=== PATIENT | male | born 1965 | race Caucasian/White ===

== ENCOUNTER 2018-06-19 08:58 | Inpatient (IN) | payer OTHER ==
[2018-06-19 09:52] VITALS: BMI 18.8
--- NOTE | 2018-06-19 10:26 | HP ---
CIWA Score - CIWA Score Nausea/Vomitin-Mild Nausea/No Vomiting Muscle Tremors: 3 Anxiety: 4-Mod. Anxious/Guarded Agitation: 0-Normal Activity Paroxysmal Sweats: 1-Minimal Palms Moist Orientation: 1-Uncertain about Date Tacttile Disturbances: 0-None Auditory Disturbances: 1-Very Mild Visual Disturbances: 1-Very Mild Sensitivity Headache: 1-Very Mild CIWA-Ar Total Score: 13 Admission ROS [facility] - HPI Chief Complaint: I drink too much beer, I want to stop Allergies/Adverse Reactions: Allergies Allergy/AdvReac Type Severity Reaction Status Date / Time No Known Allergies Allergy Verified 06/19/18 10:14 History of Present Illness: 52 yo gentleman here for detox from alcohol - states was in [facility] ED due to alcohol related seizure and told to go for detox. Last time here was 2013. Patient with history of black outs. Exam Limitations: Clinical Condition - Ebola screening Have you traveled outside of the country in the last 21 days: No (N) Have you had contact with anyone from an Ebola affected area: No Have you been sick,other than usual withdrawal symptoms: No Do you have a fever: No - Review of Systems Constitutional: Loss of Appetite, Changes in sleep, Weakness, Unintentional Wgt. Loss EENT: reports: Nose Congestion, Other (right eye blind (states from )) Respiratory: reports: SOB with Exertion Cardiac: reports: No Symptoms Reported GI: reports: Poor Appetite, Abdominal cramping : reports: Frequency Musculoskeletal: reports: No Symptoms Reported Integumentary: reports: No Symptoms Reported Neuro: reports: Headache, Tremors Endocrine: reports: No Symptoms Reported Hematology: reports: No Symptoms Reported Psychiatric: reports: Judgement Intact, Anxious Other Systems: Reviewed and Negative Patient History - Patient Medical History Hx Anemia: No Hx Asthma: No Hx Chronic Obstructive Pulmonary Disease (COPD): Yes (per xray) Hx Cancer: No Hx Cardiac Disorders: No Hx Congestive Heart Failure: No Hx Hypertension: No Hx Hypercholesterolemia: No Hx Pacemaker: No HX Cerebrovascular Accident: No Hx Seizures: Yes (yesterday ) Hx Dementia: No Hx Diabetes: No Hx Gastrointestinal Disorders: No Hx Liver Disease: No Hx Genitourinary Disorders: No Hx Sexually Transmitted Disorders: No Hx Renal Disease (ESRD): No Hx Thyroid Disease: No Hx Human Immunodeficiency Virus (HIV): No Hx Hepatitis C: No Hx Depression: Yes (no meds) Hx Suicide Attempt: Yes (walked in front of a car) Hx Bipolar Disorder: No Hx Schizophrenia: No Other Medical History: right eye blind - since - Patient Surgical History Past Surgical History: Yes Hx Neurologic Surgery: No Hx Cataract Extraction: No Hx Cardiac Surgery: No Hx Lung Surgery: No Hx Breast Surgery: No Hx Breast Biopsy: No Hx Abdominal Surgery: No Hx Appendectomy: No Hx Cholecystectomy: No Hx Genitourinary Surgery: No Hx Section: No Hx Orthopedic Surgery: Yes (left ankle with ORIF due to fracture) Anesthesia Reaction: No - PPD History Previous Implant?: Yes Documented Results: Negative w/proof Date: 09/03/13 Results: 0 mm PPD to be Administered?: Yes - Reproductive History Patient is a Female of Child Bearing Age (11 -55 yrs old): No (male) - Smoking Cessation Smoking history: Current every day smoker Have you smoked in the past 12 months: Yes Aproximately how many cigarettes per day: 20 Cigars Per Day: 20 Hx Chewing Tobacco Use: No Initiated information on smoking cessation: Yes 'Breaking Loose' booklet given: 06/19/18 - Substance & Tx. History Hx Alcohol Use: Yes Hx Substance Use: Yes Substance Use Type: Alcohol, Marijuana Hx Substance Use Treatment: Yes (detox, rehab) - Substances Abused Alcohol Route: Oral Frequency: Daily Amount used: Beer - four 245 oz Age of first use: 16 Date of Last Use: 06/18/18 marijuana Route: Smoking Frequency: 1-2 times per week Amount used: 1 joint Age of first use: 14 Date of Last Use: 06/09/18 Family Disease History - Family Disease History Family Disease History: Heart Disease: Father (, alcohol), Mother ( , alcohol), Other: Father, Mother, Brother (one - living ), Sister (two living) Admission Physical Exam S - Vital Signs Vital Signs: Vital Signs - 24 hr 06/19/18 06/19/18 09:49 09:50 Temperature 97.2 F L 96.2 F L Pulse Rate 69 59 L Respiratory 17 18 Rate Blood Pressure 119/81 123/76 - Physical General Appearance: Yes: Appropriately Dressed, Disheveled, Moderate Distress, Thin, Anxious HEENTM: Yes: Hearing grossly Normal, Normocephalic, Pharynx Normal, Nasal Congestion, Rhinorrhea, Other (right eye extropia (states blind in that eye)) Respiratory: Yes: Normal Breath Sounds, No Respiratory Distress Neck: Yes: No masses,lesions,Nodules, Supple Breast: Yes: Breast Exam Deferred Cardiology: Yes: Regular Rhythm, Regular Rate Abdominal: Yes: Non Tender, Flat, Soft Genitourinary: Yes: Frequency Back: Yes: Normal Inspection, Other (mild kyphosis) Musculoskeletal: Yes: full range of Motion, Other (unsteady gait at times) Extremities: Yes: Normal Inspection, Non-Tender, Other (healed surgical scar left ankle) Neurological: Yes: Alert, Motor Strength 5/5, Normal Mood/Affect, Normal Response Integumentary: Yes: Normal Color, Dry, Warm Lymphatic: Yes: Within Normal Limits - Diagnostic (1) Alcohol dependence with uncomplicated withdrawal Current Visit: Yes Status: Chronic (2) COPD (chronic obstructive pulmonary disease) Current Visit: Yes Status: Chronic Qualifiers: COPD type: emphysema (3) Underweight Current Visit: Yes Status: Chronic (4) Nicotine dependence Current Visit: Yes Status: Chronic Qualifiers: Nicotine product type: cigarettes (5) mental retardation nos Current Visit: Yes Status: Active (6) History of seizure Current Visit: Yes Status: Chronic (7) Blind right eye Current Visit: Yes Status: Acute (8) Exotropia, right eye Current Visit: Yes Status: Chronic Cleared for Admission [facility] - Detox or Rehab [facility] Level of Care: Medically Managed Detox Regimen/Protocol: Librium [facility] Breath Alcohol Content Breath Alcohol Content: 0 Urine Drug Screen - Results Drug Screen Negative: No Urine Drug Screen Results: OPI-Opiates, OXY-Oxycodone
[2018-06-19] MEDS ORDERED: MAG HYDROX/AL HYDROX/SIMETH 30 ML UNIT-DOSE CUP PO PRN (11:00)
[2018-06-19] MEDS ORDERED: guaiFENesin/D-METHORPHAN HB 10 ML UNIT-DOSE CUPS PO PRN (11:00)
[2018-06-19] MEDS ORDERED: hydrOXYzine PAMOATE 25 MG CAPSULE (FP) PO PRN (11:00)
[2018-06-19] MEDS ORDERED: chlordiazePOXIDE HCL 25 MG CAPSULE PO PRN (11:00)
[2018-06-19] MEDS ORDERED: MAGNESIUM CITRATE 300 ML BOTTLE PO PRN (11:00)
[2018-06-19] MEDS ORDERED: MENTHOL/PHENOL 1 EACH UD MM PRN (11:00)
[2018-06-19] MEDS ORDERED: MAGNESIUM HYDROX 2400MG/30ML ORAL SUSPENSION 30 ML CUP PO PRN (11:00)
[2018-06-19] MEDS ORDERED: IBUPROFEN 400 MG TABLET (FP) PO PRN (11:00)
[2018-06-19] MEDS ORDERED: chlordiazePOXIDE HCL 25 MG CAPSULE PO ONE (11:15)
[2018-06-19] MEDS: NICOTINE POLACRILEX 4 MG GUM BUC PRN (13:24)
[2018-06-19] MEDS: LOPERAMIDE HCL 2 MG CAPSULE PO PRN (13:42)
[2018-06-19] MEDS: ACETAMINOPHEN 325 MG TABLET (FP) PO PRN ×2 (16:22→22:48)
[2018-06-19] MEDS: P-EPHED 60MG/TRIPROLIDI 2.5MG TABLET PO PRN ×2 (16:23→22:49)
[2018-06-19 17:00] LABS: URINE APPEARANCE TURBID; URINE BILIRUBIN NEGATIVE (<2.0 mg/dL); URINE COLOR AMBER; URINE GLUCOSE (UA) NEGATIVE (NEGATIVE); URINE KETONE NEGATIVE (NEGATIVE); URINE NITRITE NEGATIVE (NEGATIVE); URINE PROTEIN NEGATIVE (NEGATIVE)
[2018-06-19 17:20] LABS: URINE LEUK ESTERASE 2+ (NEGATIVE)
[2018-06-19 17:23] LABS: EPI CELLS RARE /HPF (FEW); URINE BACTERIA FEW /hpf (NONE SEEN); URINE MUCUS FEW
[2018-06-19] MEDS: chlordiazePOXIDE HCL 25 MG CAPSULE PO SCH ×2 (18:23→22:47)
[2018-06-19] MEDS ORDERED: MELATONIN 5 MG TABLETS PO PRN (22:00)
[2018-06-19] MEDS: THIAMINE HCL 100 MG TABLET (FP) PO SCH (22:47)
[2018-06-20] MEDS: chlordiazePOXIDE HCL 25 MG CAPSULE PO SCH ×4 (05:21→22:02)
[2018-06-20] MEDS: NICOTINE POLACRILEX 4 MG GUM BUC PRN (08:39)
[2018-06-20] MEDS: LOPERAMIDE HCL 2 MG CAPSULE PO PRN (09:49)
[2018-06-20] MEDS: PRENATAL VITAMINS W/ FOLIC ACID TABLET (FP) PO SCH (09:49)
--- NOTE | 2018-06-20 10:24 | CONSULT ---
[facility] Psychiatric Consult - Data Date of interview: 06/20/18 Admission source: [facility] ED Identifying data: Mr Hernandez is a 52 years old single male, unemployed on SSI, homeless seeking detox treatment for alcohol and cannabis Substance Abuse History: Reports history of alcohol and marijuana use. Refer to addiction counselor's summary for further information Medical History: Significant for COPD, blindness right eye since and history of alcohol withdrawal seizure and orthosurgery for fracture of left ankle. Smokes cigarettes 1 ppd Psychiatric History: Patient denies previous history of psychiatric treatment. However according to a previous admissions in this facility in 2012, he was prescribed Lexapro in the past while receiving treatment at [facility] but did not follow up. Denies histiry of suicidal attempt. At present, reports feeling depressed but sleeping well Physical/Sexual Abuse/Trauma History: Reports no history of physical or sexual abuse, and no history of service. Additional Comment: Completed 10th grade in special education classes. Denies criminal history Mental Status Exam - Mental Status Exam Alert and Oriented to: Time, Place, Person Cognitive Function: Fair Patient Appearance: Disheveled Mood: Depressed Affect: Appropriate Patient Behavior: Cooperative Speech Pattern: Clear Voice Loudness: Normal Thought Process: Intact Hallucinations: Denies Suicidal Ideation: Denies Insight/Judgement: Poor Sleep: Well Appetite: Good Muscle strength/Tone: Normal Gait/Station: Normal Psychiatric Findings - Problem List ([place] 1, 2,3) (1) Substance induced mood disorder Current Visit: Yes Status: Acute (2) mental retardation nos Current Visit: Yes Status: Acute (3) Alcohol dependence with uncomplicated withdrawal Current Visit: Yes Status: Acute (4) Cannabis abuse Current Visit: Yes Status: Acute (5) Nicotine dependence Current Visit: Yes Status: Chronic Qualifiers: Nicotine product type: cigarettes (6) Blind right eye Current Visit: Yes Status: Acute (7) COPD (chronic obstructive pulmonary disease) Current Visit: Yes Status: Chronic Qualifiers: COPD type: emphysema (8) Exotropia, right eye Current Visit: Yes Status: Chronic (9) History of seizure Current Visit: Yes Status: Suspected - Initial Treatment Plan Initial Treatment Plan: Continue inpatient detoxification
[2018-06-20 11:08] LABS: CHLORIDE 100 mmol/L (98-107); POTASSIUM 4.1 mmol/L (3.5-5.1); SODIUM 137 mmol/L (136-145)
[2018-06-20 11:12] LABS: HEMATOCRIT 40.7 % (35.4-49); HEMOGLOBIN 13.8 GM/dL (11.7-16.9); MCH 34.7 pg (25.7-33.7); MEAN CELL VOLUME 102.1 fl (80-96); MEAN PLT VOLUME 8.8 fl (7.5-11.1); PLATELET COUNT 80 K/MM3 (134-434); RBC 3.99 M/mm3 (4.00-5.60); RDW 15.3 % (11.9-15.9); WHITE BLOOD COUNT 2.9 K/mm3 (4.0-10.0)
[2018-06-20 11:28] LABS: ALBUMIN 3.5 g/dl (3.4-5.0); ALK PHOS 231 U/L (45-117); ANION GAP 16 MMOL/L (8-16); BILIRUBIN,TOTAL 0.9 mg/dL (0.2-1.0); BLOOD UREA NITROGEN 13 mg/dL (7-18); CALCIUM 8.3 mg/dL (8.5-10.1); CO2 21 mmol/L (21-32); CREATININE 0.7 mg/dL (0.7-1.3); GLUCOSE,RANDOM 118 mg/dL (74-106); SGOT/AST 216 U/L (15-37); SGPT/ALT 75 U/L (12-78); TOT PROT 7.6 g/dl (6.4-8.2)
--- NOTE | 2018-06-20 17:39 | PN ---
[facility] CIWA - CIWA Score Nausea/Vomitin Muscle Tremors: 3 Anxiety: 3 Agitation: 3 Paroxysmal Sweats: 3 Orientation: 0-Oriented Tacttile Disturbances: 1-Very Mild Itch/Numbness Auditory Disturbances: 0-None Visual Disturbances: 0-None Headache: 0-None Present CIWA-Ar Total Score: 16 [facility] Progress Note (SOAP) Subjective: Runny nose, tremor, diarrhea Objective: 06/20/18 17:36 Last Vital Signs Temp Pulse Resp BP Pulse Ox 98.4 F 118 H 20 123/95 06/20/18 13:19 06/20/18 13:19 06/20/18 13:19 06/20/18 13:19 Laboratory Tests 06/19/18 06/19/18 06/20/18 09:35 14:02 08:10 WBC 2.9 L RBC 3.99 L Hgb 13.8 Hct 40.7 MCV 102.1 H MCH 34.7 H MCHC 34.0 RDW 15.3 D Plt Count 80 L D MPV 8.8 D Sodium Potassium Chloride Carbon Dioxide Anion Gap BUN Creatinine Creat Clearance w eGFR POC Glucometer 74 Random Glucose Calcium Total Bilirubin AST ALT Alkaline Phosphatase Total Protein Albumin Urine Color Sugar Urine Appearance Turbid Urine pH 5.0 Ur Specific [place] 1.016 Urine Protein Negative Urine Glucose (UA) Negative Urine Ketones Negative Urine Blood 1+ H Urine Nitrite Negative Urine Bilirubin Negative Urine Urobilinogen 2.0 Ur Leukocyte Esterase 2+ H Urine WBC (Auto) 35 Urine RBC (Auto) 12 Ur Epithelial Cells Rare Urine Bacteria Few Urine Mucus Few RPR Titer HIV 1&2 Antibody Screen HIV P24 Antigen 06/20/18 06/20/18 06/20/18 08:10 08:10 08:10 WBC RBC Hgb Hct MCV MCH MCHC RDW Plt Count MPV Sodium 137 Potassium 4.1 Chloride 100 Carbon Dioxide 21 D Anion Gap 16 BUN 13 Creatinine 0.7 Creat Clearance w eGFR > 60 POC Glucometer Random Glucose 118 H Calcium 8.3 L Total Bilirubin 0.9 AST 216 H D ALT 75 Alkaline Phosphatase 231 H Total Protein 7.6 Albumin 3.5 Urine Color Urine Appearance Urine pH Ur Specific [place] Urine Protein Urine Glucose (UA) Urine Ketones Urine Blood Urine Nitrite Urine Bilirubin Urine Urobilinogen Ur Leukocyte Esterase Urine WBC (Auto) Urine RBC (Auto) Ur Epithelial Cells Urine Bacteria Urine Mucus RPR Titer Nonreactive HIV 1&2 Antibody Screen Negative HIV P24 Antigen Negative Labs reviewed: abnormal UA Assessment: 06/20/18 17:37 Withdrawal symptoms Noted with abnormal UA Plan: Continue detox Abnormal UA: encouraged PO water intake, repeat UA
[2018-06-20] MEDS: THIAMINE HCL 100 MG TABLET (FP) PO SCH (22:02)
[2018-06-21] MEDS: chlordiazePOXIDE HCL 25 MG CAPSULE PO SCH ×2 (05:44→10:14)
[2018-06-21] MEDS: NICOTINE POLACRILEX 4 MG GUM BUC PRN (08:36)
[2018-06-21] MEDS: PRENATAL VITAMINS W/ FOLIC ACID TABLET (FP) PO SCH (10:14)
[2018-06-21 10:16] LABS: URINE APPEARANCE CLOUDY; URINE BILIRUBIN NEGATIVE (<2.0 mg/dL); URINE GLUCOSE (UA) NEGATIVE (NEGATIVE); URINE KETONE NEGATIVE (NEGATIVE); URINE NITRITE POSITIVE (NEGATIVE); URINE PROTEIN NEGATIVE (NEGATIVE); URINE UROBILINOGEN 4.0 E.U/dl mg/dL (0.2-1.0)
[2018-06-21 10:19] LABS: URINE COLOR DK YELLOW; URINE LEUK ESTERASE 2+ (NEGATIVE)
[2018-06-21 10:28] LABS: EPI CELLS RARE /HPF (FEW); URINE BACTERIA RARE /hpf (NONE SEEN); URINE MUCUS FEW
--- NOTE | 2018-06-21 11:25 | EKG ---
Test Reason : Blood Pressure : / mmHG Vent. Rate : 069 BPM Atrial Rate : 069 BPM P-R Int : 140 ms QRS Dur : 106 ms QT Int : 392 ms P-R-T Axes : 070 -20 060 degrees QTc Int : 420 ms NORMAL SINUS RHYTHM INCOMPLETE RIGHT BUNDLE BRANCH BLOCK BORDERLINE ECG NO PREVIOUS ECGS AVAILABLE Confirmed by ABDULLAHI JUAREZ, EDMAR ([id number]) on 06/21/2018 11:24:47 AM Referred By: Confirmed By:EDMAR FERNANDO MD
[2018-06-21] MEDS: LOPERAMIDE HCL 2 MG CAPSULE PO PRN (12:31)
--- NOTE | 2018-06-21 14:55 | PN ---
[facility] CIWA - CIWA Score Nausea/Vomitin Muscle Tremors: 4-Moderate,w/Arms Extend Anxiety: 4-Mod. Anxious/Guarded Agitation: 4-Moderately Restless Paroxysmal Sweats: 3 Orientation: 0-Oriented Tacttile Disturbances: 0-None Auditory Disturbances: 0-None Visual Disturbances: 0-None Headache: 0-None Present CIWA-Ar Total Score: 17 [facility] Progress Note (SOAP) Subjective: sweats sleep disturbance shakes Objective: 06/21/18 14:47 Alert, Anxious, ambulating steadily on unit Vital Signs Temperature 98.9 F 06/21/18 13:26 Pulse Rate 113 H 06/21/18 13:26 Respiratory Rate 20 06/21/18 13:26 Blood Pressure 115/83 06/21/18 13:26 O2 Sat by Pulse Oximetry (%) tachycardiac - denies any complaints Urine Test Results Urine Color Dk yellow 06/21/18 08:00 Urine Appearance Cloudy 06/21/18 08:00 Urine pH 6.0 (5.0-8.0) 06/21/18 08:00 Ur Specific [place] 1.014 (1.001-1.035) 06/21/18 08:00 Urine Protein Negative (NEGATIVE) 06/21/18 08:00 Urine Glucose (UA) Negative (NEGATIVE) 06/21/18 08:00 Urine Ketones Negative (NEGATIVE) 06/21/18 08:00 Urine Blood Negative (NEGATIVE) 06/21/18 08:00 Urine Nitrite Positive (NEGATIVE) 06/21/18 08:00 Urine Bilirubin Negative (<2.0 mg/dL) 06/21/18 08:00 Ur Leukocyte Esterase 2+ (NEGATIVE) H 06/21/18 08:00 Ur Epithelial Cells Rare /HPF (FEW) 06/21/18 08:00 Urine Bacteria Rare /hpf (NONE SEEN) 06/21/18 08:00 Urine Mucus Few 06/21/18 08:00 Result noted: Urine nitrite positive,?contaminant. Pt denies any itching, discharge, pain Urine test result for 06/20/18 negative for nitrite Assessment: 06/21/18 14:48 withdrawal sx Plan: continue detox increase hydration repeat UA in a.m
[2018-06-21] MEDS: SULFAMETHOXAZOLE/TRIMETHOPRIM 800MG/160MG D.S. TABLET PO SCH (15:30)
[2018-06-21] MEDS: P-EPHED 60MG/TRIPROLIDI 2.5MG TABLET PO PRN (15:31)
[2018-06-21] MEDS: chlordiazePOXIDE 5 MG CAPSULE PO SCH ×2 (16:44→22:02)
--- NOTE | 2018-06-21 18:56 | PN ---
[facility] Progress Note Note: Patient slipped from chair and fell to floor. Witnesses present. Patient denies hitting head. Patient states hit left side. Patient c/o pain in back and (L) side. Pain is a "4" and achy. States has had back pain for over 10 years and fall did not make it worse. Objective: Alert and oriented. Gait slow. Vital Signs 06/21/18 06/21/18 06/21/18 17:35 18:23 19:35 Temperature 98.7 F 99.8 F H 99.8 F H Pulse Rate 80 94 H 94 H Respiratory 18 17 17 Rate Blood Pressure 103/74 107/76 107/76 Small 1 cm area erythema (L) flank, w/o mass, above pelvic ridge. Spine w/o point tenderness. FROM spine. Assessment: Chronic LBP. Soft tissue trauma (L) flank. Plan: Ice pack x 20 minutes TID to (L) flank x 24 hr. Ibuprofen 400 mg PO Q6H prn. Encourage slower movements when going from laying to standing position and from sitting to standing position. Continue detox.
[2018-06-21] MEDS ORDERED: ACETAMINOPHEN 325 MG TABLET (FP) PO PRN (18:59)
[2018-06-21] MEDS ORDERED: IBUPROFEN 400 MG TABLET (FP) PO PRN (18:59)
[2018-06-21] MEDS: THIAMINE HCL 100 MG TABLET (FP) PO SCH (22:02)
[2018-06-22] MEDS: chlordiazePOXIDE 5 MG CAPSULE PO SCH ×2 (05:50→10:19)
[2018-06-22] MEDS: PRENATAL VITAMINS W/ FOLIC ACID TABLET (FP) PO SCH (10:19)
[2018-06-22] MEDS: SULFAMETHOXAZOLE/TRIMETHOPRIM 800MG/160MG D.S. TABLET PO SCH (10:19)
[2018-06-22] MEDS: NICOTINE POLACRILEX 4 MG GUM BUC PRN (11:09)
--- NOTE | 2018-06-22 14:01 | PN ---
[facility] Progress Note (SOAP) Subjective: ANXIETY, SLIGHT TREMORS. OOB AMBULATING ON UNIT WITH STEADY GAIT. INTERESTED IN GOING TO REHAB. Objective: 06/22/18 14:01 Vital Signs 06/22/18 06/22/18 06/22/18 06:45 09:12 09:35 Temperature 98.0 F 97 F L 97.8 F Pulse Rate 85 97 H 94 H Respiratory 18 20 18 Rate Blood Pressure 99/68 123/88 101/70 06/22/18 06/22/18 13:35 13:42 Temperature 96.8 F L 96.8 F L Pulse Rate 99 H 99 H Respiratory 20 20 Rate Blood Pressure 115/79 115/79 Laboratory Tests 06/19/18 06/19/18 06/20/18 09:35 14:02 08:10 WBC 2.9 L RBC 3.99 L Hgb 13.8 Hct 40.7 MCV 102.1 H MCH 34.7 H MCHC 34.0 RDW 15.3 D Plt Count 80 L D MPV 8.8 D Sodium Potassium Chloride Carbon Dioxide Anion Gap BUN Creatinine Creat Clearance w eGFR POC Glucometer 74 Random Glucose Calcium Total Bilirubin AST ALT Alkaline Phosphatase Total Protein Albumin Urine Color Sugar Urine Appearance Turbid Urine pH 5.0 Ur Specific [place] 1.016 Urine Protein Negative Urine Glucose (UA) Negative Urine Ketones Negative Urine Blood 1+ H Urine Nitrite Negative Urine Bilirubin Negative Urine Urobilinogen 2.0 Ur Leukocyte Esterase 2+ H Urine WBC (Auto) 35 Urine RBC (Auto) 12 Ur Epithelial Cells Rare Urine Bacteria Few Urine Mucus Few RPR Titer HIV 1&2 Antibody Screen HIV P24 Antigen 06/20/18 06/20/18 06/20/18 08:10 08:10 08:10 WBC RBC Hgb Hct MCV MCH MCHC RDW Plt Count MPV Sodium 137 Potassium 4.1 Chloride 100 Carbon Dioxide 21 D Anion Gap 16 BUN 13 Creatinine 0.7 Creat Clearance w eGFR > 60 POC Glucometer Random Glucose 118 H Calcium 8.3 L Total Bilirubin 0.9 AST 216 H D ALT 75 Alkaline Phosphatase 231 H Total Protein 7.6 Albumin 3.5 Urine Color Urine Appearance Urine pH Ur Specific [place] Urine Protein Urine Glucose (UA) Urine Ketones Urine Blood Urine Nitrite Urine Bilirubin Urine Urobilinogen Ur Leukocyte Esterase Urine WBC (Auto) Urine RBC (Auto) Ur Epithelial Cells Urine Bacteria Urine Mucus RPR Titer Nonreactive HIV 1&2 Antibody Screen Negative HIV P24 Antigen Negative 06/21/18 08:00 WBC RBC Hgb Hct MCV MCH MCHC RDW Plt Count MPV Sodium Potassium Chloride Carbon Dioxide Anion Gap BUN Creatinine Creat Clearance w eGFR POC Glucometer Random Glucose Calcium Total Bilirubin AST ALT Alkaline Phosphatase Total Protein Albumin Urine Color Dk yellow Urine Appearance Cloudy Urine pH 6.0 Ur Specific [place] 1.014 Urine Protein Negative Urine Glucose (UA) Negative Urine Ketones Negative Urine Blood Negative Urine Nitrite Positive Urine Bilirubin Negative Urine Urobilinogen 4.0 e.u/dl Ur Leukocyte Esterase 2+ H Urine WBC (Auto) 19 Urine RBC (Auto) 4 Ur Epithelial Cells Rare Urine Bacteria Rare Urine Mucus Few RPR Titer HIV 1&2 Antibody Screen HIV P24 Antigen REPEAT UA PENDING Assessment: 06/22/18 14:01 WITHDRAWAL SX Plan: CONTINUE DETOX
[2018-06-22] MEDS: chlordiazePOXIDE HCL 10 MG CAPSULE PO SCH ×2 (16:54→22:03)
[2018-06-22 17:20] LABS: URINE APPEARANCE CLOUDY; URINE COLOR AMBER; URINE GLUCOSE (UA) NEGATIVE (NEGATIVE); URINE KETONE NEGATIVE (NEGATIVE); URINE LEUK ESTERASE 2+ (NEGATIVE); URINE NITRITE NEGATIVE (NEGATIVE); URINE PROTEIN 1+ (NEGATIVE); URINE UROBILINOGEN 4.0 E.U/dl mg/dL (0.2-1.0)
[2018-06-22 17:30] LABS: CALCIUM OXALATE CRYSTALS MANY /hpf (NONE SEEN); EPI CELLS RARE /HPF (FEW); URINE BACTERIA MODERATE /hpf (NONE SEEN); URINE MUCUS MANY
[2018-06-22] MEDS: THIAMINE HCL 100 MG TABLET (FP) PO SCH (21:53)
[2018-06-23] MEDS: chlordiazePOXIDE HCL 10 MG CAPSULE PO SCH (05:41)
--- NOTE | 2018-06-23 08:45 | PN ---
[facility] Progress Note (SOAP) Subjective: DETOX COMPLETED. ALERT O X 3. NAD. REFERRED TO REHAB TODAY. Objective: 06/23/18 08:43 Vital Signs 06/23/18 06/23/18 03:30 06:18 Temperature 98.6 F Pulse Rate 81 Respiratory 18 18 Rate Blood Pressure 101/72 Laboratory Tests 06/19/18 06/19/18 06/20/18 09:35 14:02 08:10 WBC 2.9 L RBC 3.99 L Hgb 13.8 Hct 40.7 MCV 102.1 H MCH 34.7 H MCHC 34.0 RDW 15.3 D Plt Count 80 L D MPV 8.8 D Sodium Potassium Chloride Carbon Dioxide Anion Gap BUN Creatinine Creat Clearance w eGFR POC Glucometer 74 Random Glucose Calcium Total Bilirubin AST ALT Alkaline Phosphatase Total Protein Albumin Urine Color Sugar Urine Appearance Turbid Urine pH 5.0 Ur Specific [place] 1.016 Urine Protein Negative Urine Glucose (UA) Negative Urine Ketones Negative Urine Blood 1+ H Urine Nitrite Negative Urine Bilirubin Negative Urine Urobilinogen 2.0 Ur Leukocyte Esterase 2+ H Urine WBC (Auto) 35 Urine RBC (Auto) 12 Ur Epithelial Cells Rare Calcium Oxalate Crystal Urine Bacteria Few Urine Mucus Few RPR Titer HIV 1&2 Antibody Screen HIV P24 Antigen 06/20/18 06/20/18 06/20/18 08:10 08:10 08:10 WBC RBC Hgb Hct MCV MCH MCHC RDW Plt Count MPV Sodium 137 Potassium 4.1 Chloride 100 Carbon Dioxide 21 D Anion Gap 16 BUN 13 Creatinine 0.7 Creat Clearance w eGFR > 60 POC Glucometer Random Glucose 118 H Calcium 8.3 L Total Bilirubin 0.9 AST 216 H D ALT 75 Alkaline Phosphatase 231 H Total Protein 7.6 Albumin 3.5 Urine Color Urine Appearance Urine pH Ur Specific [place] Urine Protein Urine Glucose (UA) Urine Ketones Urine Blood Urine Nitrite Urine Bilirubin Urine Urobilinogen Ur Leukocyte Esterase Urine WBC (Auto) Urine RBC (Auto) Ur Epithelial Cells Calcium Oxalate Crystal Urine Bacteria Urine Mucus RPR Titer Nonreactive HIV 1&2 Antibody Screen Negative HIV P24 Antigen Negative 06/21/18 06/22/18 08:00 11:30 WBC RBC Hgb Hct MCV MCH MCHC RDW Plt Count MPV Sodium Potassium Chloride Carbon Dioxide Anion Gap BUN Creatinine Creat Clearance w eGFR POC Glucometer Random Glucose Calcium Total Bilirubin AST ALT Alkaline Phosphatase Total Protein Albumin Urine Color Dk yellow Sugar Urine Appearance Cloudy Cloudy Urine pH 6.0 6.0 Ur Specific [place] 1.014 1.031 Urine Protein Negative 1+ H Urine Glucose (UA) Negative Negative Urine Ketones Negative Negative Urine Blood Negative Negative Urine Nitrite Positive Negative Urine Bilirubin Negative 2.0 Urine Urobilinogen 4.0 e.u/dl 4.0 e.u/dl Ur Leukocyte Esterase 2+ H 2+ H Urine WBC (Auto) 19 134 Urine RBC (Auto) 4 4 Ur Epithelial Cells Rare Rare Calcium Oxalate Crystal Many Urine Bacteria Rare Moderate Urine Mucus Few Many RPR Titer HIV 1&2 Antibody Screen HIV P24 Antigen REPEAT UA NOT IMPROVED. WILL REPEAT UA AND UC IN REHAB TODAY. 06/23/18 16:25 Assessment: 06/23/18 08:44 MEDICALLY STABLE Plan: D/C TODAY TO REHAB
--- NOTE | 2018-06-23 08:48 | DS ---
[facility] Detox Discharge Summary Admission Date: 06/19/18 Discharge Date: 06/23/18 - History Present History: Alcohol Dependence Additional Comments: DETOX COMPLETED. ALERT O X 3. NAD. Pertinent Past History: PLEASE SEE DX BELOW - Physical Exam Results Vital Signs: Vital Signs Temperature 98.6 F 06/23/18 06:18 Pulse Rate 81 06/23/18 06:18 Respiratory Rate 18 06/23/18 06:18 Blood Pressure 101/72 06/23/18 06:18 O2 Sat by Pulse Oximetry (%) Pertinent Admission Physical Exam Findings: WITHDRAWAL SX Laboratory Tests 06/19/18 06/19/18 06/20/18 09:35 14:02 08:10 WBC 2.9 L RBC 3.99 L Hgb 13.8 Hct 40.7 MCV 102.1 H MCH 34.7 H MCHC 34.0 RDW 15.3 D Plt Count 80 L D MPV 8.8 D Sodium Potassium Chloride Carbon Dioxide Anion Gap BUN Creatinine Creat Clearance w eGFR POC Glucometer 74 Random Glucose Calcium Total Bilirubin AST ALT Alkaline Phosphatase Total Protein Albumin Urine Color Sugar Urine Appearance Turbid Urine pH 5.0 Ur Specific [place] 1.016 Urine Protein Negative Urine Glucose (UA) Negative Urine Ketones Negative Urine Blood 1+ H Urine Nitrite Negative Urine Bilirubin Negative Urine Urobilinogen 2.0 Ur Leukocyte Esterase 2+ H Urine WBC (Auto) 35 Urine RBC (Auto) 12 Ur Epithelial Cells Rare Calcium Oxalate Crystal Urine Bacteria Few Urine Mucus Few RPR Titer HIV 1&2 Antibody Screen HIV P24 Antigen 06/20/18 06/20/18 06/20/18 08:10 08:10 08:10 WBC RBC Hgb Hct MCV MCH MCHC RDW Plt Count MPV Sodium 137 Potassium 4.1 Chloride 100 Carbon Dioxide 21 D Anion Gap 16 BUN 13 Creatinine 0.7 Creat Clearance w eGFR > 60 POC Glucometer Random Glucose 118 H Calcium 8.3 L Total Bilirubin 0.9 AST 216 H D ALT 75 Alkaline Phosphatase 231 H Total Protein 7.6 Albumin 3.5 Urine Color Urine Appearance Urine pH Ur Specific [place] Urine Protein Urine Glucose (UA) Urine Ketones Urine Blood Urine Nitrite Urine Bilirubin Urine Urobilinogen Ur Leukocyte Esterase Urine WBC (Auto) Urine RBC (Auto) Ur Epithelial Cells Calcium Oxalate Crystal Urine Bacteria Urine Mucus RPR Titer Nonreactive HIV 1&2 Antibody Screen Negative HIV P24 Antigen Negative 06/21/18 06/22/18 08:00 11:30 WBC RBC Hgb Hct MCV MCH MCHC RDW Plt Count MPV Sodium Potassium Chloride Carbon Dioxide Anion Gap BUN Creatinine Creat Clearance w eGFR POC Glucometer Random Glucose Calcium Total Bilirubin AST ALT Alkaline Phosphatase Total Protein Albumin Urine Color Dk yellow Sugar Urine Appearance Cloudy Cloudy Urine pH 6.0 6.0 Ur Specific [place] 1.014 1.031 Urine Protein Negative 1+ H Urine Glucose (UA) Negative Negative Urine Ketones Negative Negative Urine Blood Negative Negative Urine Nitrite Positive Negative Urine Bilirubin Negative 2.0 Urine Urobilinogen 4.0 e.u/dl 4.0 e.u/dl Ur Leukocyte Esterase 2+ H 2+ H Urine WBC (Auto) 19 134 Urine RBC (Auto) 4 4 Ur Epithelial Cells Rare Rare Calcium Oxalate [place] Many Urine Bacteria Rare Moderate Urine Mucus Few Many RPR Titer HIV 1&2 Antibody Screen HIV P24 Antigen - Treatment Hospital Course: Detox Protocol Followed, Detoxed Safely, Responded well, Discharged Condition Good, Rehab Referral Accepted Patient has Accepted a Rehab Referral to: [facility] - Medication Discharge Medications: Ambulatory Orders NK [No Known Home Medication] 11/27/13 - Diagnosis (1) Abnormal finding on urinalysis Status: Acute (2) Alcohol dependence with uncomplicated withdrawal Status: Acute (3) Alcohol related seizure Status: Suspected (4) Blind right eye Status: Chronic (5) COPD (chronic obstructive pulmonary disease) Status: Chronic Qualifiers: COPD type: emphysema (6) Exotropia, right eye Status: Chronic (7) History of seizure Status: Chronic (8) Nicotine dependence Status: Acute Qualifiers: Nicotine product type: cigarettes Substance use status: in withdrawal Qualified Code(s): F17.213 - Nicotine dependence, cigarettes, with withdrawal (9) mental retardation nos Status: Chronic - AMA Did Patient Leave Against Medical Advice: No
[2018-06-23 09:16] VITALS: BP 108/83; PULSE 105; TEMP 98.9
[2018-06-23] MEDS: P-EPHED 60MG/TRIPROLIDI 2.5MG TABLET PO PRN (09:53)
[2018-06-23] MEDS: PRENATAL VITAMINS W/ FOLIC ACID TABLET (FP) PO SCH (09:53)
[2018-06-23] MEDS: LOPERAMIDE HCL 2 MG CAPSULE PO PRN (09:53)
[2018-06-23] MEDS: SULFAMETHOXAZOLE/TRIMETHOPRIM 800MG/160MG D.S. TABLET PO SCH (09:53)
== END 2018-06-23 11:16 | disposition other institution (70) | DRG 775 ==
LOC: YASAS 08:58 → Y3N 10:42
PROC: HZ2ZZZZ Detoxification Services for Substance Abuse Treatment (ICD-10-PCS; principal; 2018-06-19)
DX: F10.230 Alcohol dependence with withdrawal, uncomplicated (principal); F12.10 Cannabis abuse, uncomplicated; F17.213 Nicotine dependence, cigarettes, with withdrawal; F19.24 Other psychoactive substance dependence with psychoactive substance-induced mood disorder; F10.24 Alcohol dependence with alcohol-induced mood disorder; J43.9 Emphysema, unspecified; H50.10 Unspecified exotropia; H54.61 Unqualified visual loss, right eye, normal vision left eye; F79 Unspecified intellectual disabilities; G40.509 Epileptic seizures related to external causes, not intractable, without status epilepticus; R63.6 Underweight; Z68.1 Body mass index [BMI] 19.9 or less, adult; R82.90 Unspecified abnormal findings in urine; Z91.5 Personal history of self-harm
CPT/HCPCS: 36415; 80053; 81003; 81015; 82962; 85027; 86593; 87389; 93005; 93010

== ENCOUNTER 2018-06-23 11:20 | Inpatient (IN) | payer OTHER ==
--- NOTE | 2018-06-23 12:04 | HP ---
Psychiatrist Admission - Data Date of interview: 06/23/18 Admission source: 3N Identifying data: This is one of the multiple [facility] admissions for this 52 years old single male, unemployed on SSI, homeless Medical History: Significant for COPD, blindness right eye since , history of alcohol withdrawal seizure and orthosurgery for fracture of left ankle. Smokes cigarettes 1 ppd Psychiatric History: Patient denies previous history of psychiatric treatment. However according to a previous admissions in this facility in 2012, he was prescribed Lexapro in the past while receiving treatment at [facility] but did not continue to take it after discharge. Denies history of suicidal attempt. At present, reports feeling depressed but sleeping well Physical/Sexual Abuse/Trauma History: Reports no history of physical or sexual abuse, and no history of service. Additional Comment: Completed 10th grade in special education classes. Denies criminal history Vital Signs: Vital Signs - 24 hr 06/23/18 11:39 Temperature 98.4 F Pulse Rate 110 H Respiratory 18 Rate Blood Pressure 125/86 Allergies/Adverse Reactions: Allergies Allergy/AdvReac Type Severity Reaction Status Date / Time No Known Allergies Allergy Verified 06/23/18 11:36 Date of last physical exam: 06/19/18 Concur with the findings of this exam: Yes - Substance Abuse/Tx History Hx Alcohol Use: Yes Hx Substance Use: Yes Substance Use Type: Alcohol (Started drinking alcohol at age 16, consumes 4x 245oz daily. Last drank on 06/18/18), Marijuana (Started smoking marijuana at age 14, consumes one joint 1-2 times weekly. Last smoked on 06/09/18) Hx Substance Use Treatment: Yes (Multiple(10)previous inpt detox & 4 inpt rehab admissions @ [facility]) Mental Status Exam - Mental Status Exam Alert and Oriented to: Time, Place, Person Cognitive Function: Fair Patient Appearance: Disheveled Mood: Depressed Affect: Appropriate Patient Behavior: Cooperative Speech Pattern: Clear Voice Loudness: Normal Thought Process: Intact, Goal Oriented Thought Disorder: Not Present Hallucinations: Denies Suicidal Ideation: Denies Homicidal Ideation: Denies Insight/Judgement: Fair Sleep: Well Appetite: Good Muscle strength/Tone: Normal Gait/Station: Normal Psychiatric Findings - Problem List ([facility] 1, 2,3) (1) Alcohol dependence Current Visit: No Status: Active (2) Cannabis abuse Current Visit: No Status: Acute (3) Nicotine dependence Current Visit: No Status: Acute Qualifiers: Nicotine product type: cigarettes Substance use status: in withdrawal Qualified Code(s): F17.213 - Nicotine dependence, cigarettes, with withdrawal (4) Substance induced mood disorder Current Visit: No Status: Acute (5) mental retardation nos Current Visit: No Status: Chronic (6) Alcohol related seizure Current Visit: No Status: Suspected (7) Blind right eye Current Visit: No Status: Chronic (8) COPD (chronic obstructive pulmonary disease) Current Visit: No Status: Chronic Qualifiers: COPD type: emphysema (9) Exotropia, right eye Current Visit: No Status: Chronic - Initial Treatment Plan Initial Treatment Plan: Monitor progress
[2018-06-23] MEDS ORDERED: ACETAMINOPHEN 325 MG TABLET (FP) PO PRN (12:08)
[2018-06-23] MEDS ORDERED: P-EPHED 60MG/TRIPROLIDI 2.5MG TABLET PO PRN (12:08)
[2018-06-23] MEDS ORDERED: MAG HYDROX/AL HYDROX/SIMETH 30 ML UNIT-DOSE CUP PO PRN (12:08)
[2018-06-23] MEDS ORDERED: guaiFENesin/D-METHORPHAN HB 10 ML UNIT-DOSE CUPS PO PRN (12:08)
[2018-06-23] MEDS ORDERED: MENTHOL/PHENOL 1 EACH UD MM PRN (12:08)
[2018-06-23] MEDS ORDERED: LOPERAMIDE HCL 2 MG CAPSULE PO PRN (12:08)
[2018-06-23] MEDS ORDERED: MAGNESIUM HYDROX 2400MG/30ML ORAL SUSPENSION 30 ML CUP PO PRN (12:08)
[2018-06-23] MEDS ORDERED: MAGNESIUM CITRATE 300 ML BOTTLE PO PRN (12:08)
[2018-06-23] MEDS ORDERED: BISMUTH SUBSALICYLATE 262 MG/15 ML BTL PO PRN (12:14)
[2018-06-23] MEDS: NICOTINE 21 MG/24 HOURS TOPICAL PATCH TD SCH (15:54)
[2018-06-23] MEDS: NICOTINE POLACRILEX 4 MG GUM BUC PRN (15:57)
[2018-06-23 17:19] LABS: URINE APPEARANCE TURBID; URINE BILIRUBIN NEGATIVE (<2.0 mg/dL); URINE COLOR AMBER; URINE GLUCOSE (UA) NEGATIVE (NEGATIVE); URINE KETONE NEGATIVE (NEGATIVE); URINE NITRITE NEGATIVE (NEGATIVE); URINE PROTEIN NEGATIVE (NEGATIVE); URINE UROBILINOGEN 4.0 E.U/dl mg/dL (0.2-1.0)
[2018-06-23 17:20] LABS: URINE LEUK ESTERASE 1+ (NEGATIVE)
[2018-06-23 17:22] LABS: CALCIUM OXALATE CRYSTALS FEW /hpf (NONE SEEN); URINE MUCUS MODERATE
[2018-06-23] MEDS: hydrOXYzine PAMOATE 50 MG CAPSULE (FP) PO PRN (20:05)
[2018-06-23] MEDS: IBUPROFEN 400 MG TABLET (FP) PO PRN (20:05)
[2018-06-23] MEDS: THIAMINE HCL 100 MG TABLET (FP) PO SCH (23:04)
[2018-06-24] MEDS: PRENATAL VITAMINS W/ FOLIC ACID TABLET (FP) PO SCH (09:54)
[2018-06-24] MEDS: hydrOXYzine PAMOATE 50 MG CAPSULE (FP) PO PRN ×2 (09:54→14:25)
[2018-06-24] MEDS: NICOTINE 21 MG/24 HOURS TOPICAL PATCH TD SCH (09:54)
[2018-06-24] MEDS: NICOTINE POLACRILEX 4 MG GUM BUC PRN (09:55)
--- NOTE | 2018-06-24 14:52 | PN ---
S Progress Note Note: Vital Signs Temperature 98.2 F 06/24/18 07:01 Pulse Rate 88 06/24/18 09:30 Respiratory Rate 18 06/24/18 09:30 Blood Pressure 106/66 06/24/18 09:30 O2 Sat by Pulse Oximetry (%) 06/23/18 16:45 Urine Culture - Pending Urine - Urine Clean Catch Patient c/o of left heel pain Patient OAx3 no distress no adventitious breth sound + laceration on left heel with mod cellulitis to skin full ROM ambulation in the unit cellulitis Plan: bacitracin TP BID keflex q6h x 5 days cover with gauze QD continue to monitor
[2018-06-24] MEDS ORDERED: PT OWN MED DRAWER 7, Y5N ONE (16:45)
[2018-06-24] MEDS: CEPHALEXIN MONOHYDRATE 250 MG CAPSULE (FP) PO SCH ×2 (17:33→23:52)
[2018-06-24] MEDS: BACITRACIN 0.9 GM PACKET TP SCH (21:16)
[2018-06-24] MEDS: THIAMINE HCL 100 MG TABLET (FP) PO SCH (21:16)
[2018-06-24] MEDS: MELATONIN 5 MG TABLETS PO PRN (21:16)
[2018-06-25] MEDS: CEPHALEXIN MONOHYDRATE 250 MG CAPSULE (FP) PO SCH ×3 (06:05→17:13)
[2018-06-25] MEDS: NICOTINE POLACRILEX 4 MG GUM BUC PRN ×3 (06:06→15:40)
[2018-06-25] MEDS: BACITRACIN 0.9 GM PACKET TP SCH ×2 (09:46→21:12)
[2018-06-25] MEDS: NICOTINE 21 MG/24 HOURS TOPICAL PATCH TD SCH (09:46)
[2018-06-25] MEDS: PRENATAL VITAMINS W/ FOLIC ACID TABLET (FP) PO SCH (09:46)
[2018-06-25] MEDS ORDERED: PT OWN MED DRAWER 7, Y5N ONE (10:37)
[2018-06-25] MEDS: MELATONIN 5 MG TABLETS PO PRN (21:12)
[2018-06-25] MEDS: THIAMINE HCL 100 MG TABLET (FP) PO SCH (21:12)
[2018-06-26] MEDS: CEPHALEXIN MONOHYDRATE 250 MG CAPSULE (FP) PO SCH ×4 (05:58→18:00)
[2018-06-26] MEDS: NICOTINE POLACRILEX 4 MG GUM BUC PRN ×2 (05:59→09:52)
[2018-06-26] MEDS: BACITRACIN 0.9 GM PACKET TP SCH ×2 (09:50→21:19)
[2018-06-26] MEDS: PRENATAL VITAMINS W/ FOLIC ACID TABLET (FP) PO SCH (09:50)
[2018-06-26] MEDS: IBUPROFEN 400 MG TABLET (FP) PO PRN (09:51)
[2018-06-26] MEDS: NICOTINE 21 MG/24 HOURS TOPICAL PATCH TD SCH (10:21)
[2018-06-26] MEDS: hydrOXYzine PAMOATE 50 MG CAPSULE (FP) PO PRN (21:19)
[2018-06-26] MEDS: THIAMINE HCL 100 MG TABLET (FP) PO SCH (21:19)
[2018-06-26] MEDS: MELATONIN 5 MG TABLETS PO PRN (21:19)
[2018-06-27] MEDS: CEPHALEXIN MONOHYDRATE 250 MG CAPSULE (FP) PO SCH ×5 (06:05→23:07)
[2018-06-27] MEDS: NICOTINE POLACRILEX 4 MG GUM BUC PRN (06:06)
[2018-06-27] MEDS: NICOTINE 21 MG/24 HOURS TOPICAL PATCH TD SCH (09:35)
[2018-06-27] MEDS: BACITRACIN 0.9 GM PACKET TP SCH ×2 (09:35→21:28)
[2018-06-27] MEDS: PRENATAL VITAMINS W/ FOLIC ACID TABLET (FP) PO SCH (09:35)
[2018-06-27] MEDS: hydrOXYzine PAMOATE 50 MG CAPSULE (FP) PO PRN (21:27)
[2018-06-27] MEDS: THIAMINE HCL 100 MG TABLET (FP) PO SCH (21:27)
[2018-06-27] MEDS: MELATONIN 5 MG TABLETS PO PRN (21:27)
[2018-06-28] MEDS: NICOTINE POLACRILEX 4 MG GUM BUC PRN ×2 (06:14→09:36)
[2018-06-28] MEDS: CEPHALEXIN MONOHYDRATE 250 MG CAPSULE (FP) PO SCH ×3 (06:14→17:02)
[2018-06-28] MEDS: BACITRACIN 0.9 GM PACKET TP SCH ×2 (09:35→21:05)
[2018-06-28] MEDS: PRENATAL VITAMINS W/ FOLIC ACID TABLET (FP) PO SCH (09:35)
[2018-06-28] MEDS: NICOTINE 21 MG/24 HOURS TOPICAL PATCH TD SCH (09:36)
[2018-06-28] MEDS ORDERED: PT OWN MED DRAWER 7, Y5N ONE (16:25)
[2018-06-28] MEDS: THIAMINE HCL 100 MG TABLET (FP) PO SCH (21:05)
[2018-06-28] MEDS: MELATONIN 5 MG TABLETS PO PRN (21:06)
[2018-06-29] MEDS ORDERED: PT OWN MED DRAWER 7, Y5N ONE (04:58)
[2018-06-29] MEDS: CEPHALEXIN MONOHYDRATE 250 MG CAPSULE (FP) PO SCH ×4 (05:50→18:00)
[2018-06-29] MEDS: NICOTINE 21 MG/24 HOURS TOPICAL PATCH TD SCH (09:56)
[2018-06-29] MEDS: NICOTINE POLACRILEX 4 MG GUM BUC PRN (09:56)
[2018-06-29] MEDS: PRENATAL VITAMINS W/ FOLIC ACID TABLET (FP) PO SCH (09:56)
[2018-06-29] MEDS: BACITRACIN 0.9 GM PACKET TP SCH ×2 (09:56→21:28)
[2018-06-29] MEDS: hydrOXYzine PAMOATE 50 MG CAPSULE (FP) PO PRN (21:28)
[2018-06-29] MEDS: THIAMINE HCL 100 MG TABLET (FP) PO SCH (21:28)
[2018-06-29] MEDS: MELATONIN 5 MG TABLETS PO PRN (21:28)
[2018-06-30] MEDS: NICOTINE POLACRILEX 4 MG GUM BUC PRN ×2 (05:54→09:37)
[2018-06-30] MEDS: PRENATAL VITAMINS W/ FOLIC ACID TABLET (FP) PO SCH (09:36)
[2018-06-30] MEDS: BACITRACIN 0.9 GM PACKET TP SCH ×2 (09:36→22:08)
[2018-06-30] MEDS: NICOTINE 21 MG/24 HOURS TOPICAL PATCH TD SCH (09:36)
[2018-06-30] MEDS: MELATONIN 5 MG TABLETS PO PRN (22:08)
[2018-06-30] MEDS: THIAMINE HCL 100 MG TABLET (FP) PO SCH (22:08)
[2018-07-01] MEDS: PRENATAL VITAMINS W/ FOLIC ACID TABLET (FP) PO SCH (09:35)
[2018-07-01] MEDS: BACITRACIN 0.9 GM PACKET TP SCH ×2 (09:35→21:29)
[2018-07-01] MEDS: NICOTINE 21 MG/24 HOURS TOPICAL PATCH TD SCH (09:36)
[2018-07-01] MEDS: NICOTINE POLACRILEX 4 MG GUM BUC PRN (09:37)
[2018-07-01] MEDS ORDERED: PT OWN MED DRAWER 7, Y5N ONE (09:41)
[2018-07-01] MEDS: THIAMINE HCL 100 MG TABLET (FP) PO SCH (21:29)
[2018-07-01] MEDS: hydrOXYzine PAMOATE 50 MG CAPSULE (FP) PO PRN (21:29)
[2018-07-01] MEDS: MELATONIN 5 MG TABLETS PO PRN (21:29)
[2018-07-02] MEDS: BACITRACIN 0.9 GM PACKET TP SCH ×2 (09:44→21:58)
[2018-07-02] MEDS: NICOTINE 21 MG/24 HOURS TOPICAL PATCH TD SCH (09:45)
[2018-07-02] MEDS: PRENATAL VITAMINS W/ FOLIC ACID TABLET (FP) PO SCH (09:45)
[2018-07-02] MEDS: NICOTINE POLACRILEX 4 MG GUM BUC PRN (09:45)
[2018-07-02] MEDS: MELATONIN 5 MG TABLETS PO PRN (21:58)
[2018-07-02] MEDS: THIAMINE HCL 100 MG TABLET (FP) PO SCH (21:58)
[2018-07-02] MEDS: hydrOXYzine PAMOATE 50 MG CAPSULE (FP) PO PRN (21:58)
[2018-07-03] MEDS: NICOTINE 21 MG/24 HOURS TOPICAL PATCH TD SCH (09:30)
[2018-07-03] MEDS: BACITRACIN 0.9 GM PACKET TP SCH ×2 (09:30→21:33)
[2018-07-03] MEDS: PRENATAL VITAMINS W/ FOLIC ACID TABLET (FP) PO SCH (09:30)
[2018-07-03] MEDS: NICOTINE POLACRILEX 4 MG GUM BUC PRN (09:30)
[2018-07-03] MEDS: MELATONIN 5 MG TABLETS PO PRN (21:33)
[2018-07-03] MEDS: THIAMINE HCL 100 MG TABLET (FP) PO SCH (21:33)
[2018-07-04] MEDS: NICOTINE 21 MG/24 HOURS TOPICAL PATCH TD SCH (09:29)
[2018-07-04] MEDS: PRENATAL VITAMINS W/ FOLIC ACID TABLET (FP) PO SCH (09:29)
[2018-07-04] MEDS: BACITRACIN 0.9 GM PACKET TP SCH ×2 (09:29→21:20)
[2018-07-04] MEDS: NICOTINE POLACRILEX 4 MG GUM BUC PRN (09:30)
[2018-07-04] MEDS: MELATONIN 5 MG TABLETS PO PRN (21:20)
[2018-07-04] MEDS: THIAMINE HCL 100 MG TABLET (FP) PO SCH (21:20)
--- NOTE | 2018-07-05 09:12 | PN ---
BHS Progress Note Note: PT C/O LEFT ELBOW CHRONIC PAIN ON/OFF. S/P LEFT ELBOW SX. EXAM:ACTIVE ROM WITH INCOMPLETE EXTENSION OF THE ELBOW JOINT PAINFUL TO PALPATION, NO REDNESS OR SWELLING OF TISSUE. ELBOW JOINT WITH SLIGHT HYPERTROPHY DUE TO OLD INJURY/SX. PLAN;MOTRIN DIRECTED PRN ANALGESIC BALM APPLY TO AREA DIRECTED.
[2018-07-05] MEDS: NICOTINE 21 MG/24 HOURS TOPICAL PATCH TD SCH (09:32)
[2018-07-05] MEDS: BACITRACIN 0.9 GM PACKET TP SCH ×2 (09:32→21:34)
[2018-07-05] MEDS: PRENATAL VITAMINS W/ FOLIC ACID TABLET (FP) PO SCH (09:32)
[2018-07-05] MEDS: NICOTINE POLACRILEX 4 MG GUM BUC PRN (09:34)
[2018-07-05] MEDS: METHYL SALICYLATE/MENTHOL OINT 30 GM TUBE TP SCH ×2 (09:34→21:35)
[2018-07-05] MEDS: IBUPROFEN 400 MG TABLET (FP) PO PRN (10:10)
[2018-07-05] MEDS: MELATONIN 5 MG TABLETS PO PRN (21:34)
[2018-07-05] MEDS: THIAMINE HCL 100 MG TABLET (FP) PO SCH (21:34)
[2018-07-06] MEDS: NICOTINE 21 MG/24 HOURS TOPICAL PATCH TD SCH (09:42)
[2018-07-06] MEDS: PRENATAL VITAMINS W/ FOLIC ACID TABLET (FP) PO SCH (09:42)
[2018-07-06] MEDS: BACITRACIN 0.9 GM PACKET TP SCH ×2 (09:42→21:39)
[2018-07-06] MEDS: METHYL SALICYLATE/MENTHOL OINT 30 GM TUBE TP SCH ×2 (09:43→21:39)
[2018-07-06] MEDS: NICOTINE POLACRILEX 4 MG GUM BUC PRN (09:44)
[2018-07-06] MEDS ORDERED: PT OWN MED DRAWER 7, Y5N ONE (09:44)
[2018-07-06] MEDS: THIAMINE HCL 100 MG TABLET (FP) PO SCH (21:39)
[2018-07-06] MEDS: MELATONIN 5 MG TABLETS PO PRN (21:39)
[2018-07-07] MEDS: NICOTINE 21 MG/24 HOURS TOPICAL PATCH TD SCH (09:38)
[2018-07-07] MEDS: METHYL SALICYLATE/MENTHOL OINT 30 GM TUBE TP SCH ×2 (09:38→22:05)
[2018-07-07] MEDS: PRENATAL VITAMINS W/ FOLIC ACID TABLET (FP) PO SCH (09:38)
[2018-07-07] MEDS: BACITRACIN 0.9 GM PACKET TP SCH ×2 (09:39→22:05)
[2018-07-07] MEDS: NICOTINE POLACRILEX 4 MG GUM BUC PRN (09:40)
--- NOTE | 2018-07-07 11:31 | PN ---
BHS Progress Note Note: C/O EXTREME DRY SCALY FEET. FOOT SOAK HELPING AND SCALES SLOUGHING OFF. APPLY LAC HYDRIN LOTION TO AFFECTED FEET DIRECTED CONTINUE FOOT SOAKS
[2018-07-07] MEDS: AMMONIUM LACTATE 12% LOTION 225 GM BOTTLE TP SCH ×2 (13:11→22:05)
[2018-07-07] MEDS: THIAMINE HCL 100 MG TABLET (FP) PO SCH (22:05)
[2018-07-08 06:55] VITALS: BP 107/73; PULSE 69; TEMP 98.5
[2018-07-08] MEDS: BACITRACIN 0.9 GM PACKET TP SCH (09:31)
[2018-07-08] MEDS: METHYL SALICYLATE/MENTHOL OINT 30 GM TUBE TP SCH (09:32)
[2018-07-08] MEDS: AMMONIUM LACTATE 12% LOTION 225 GM BOTTLE TP SCH (09:32)
[2018-07-08] MEDS: PRENATAL VITAMINS W/ FOLIC ACID TABLET (FP) PO SCH (09:33)
[2018-07-08] MEDS: NICOTINE 21 MG/24 HOURS TOPICAL PATCH TD SCH (09:33)
--- NOTE | 2018-07-08 09:37 | PN ---
Psychiatric Progress Note Vital Signs: Vital Signs Period Temp Pulse Resp BP Sys/Gonzalez Pulse Ox Last 24 Hr 98.5 F 69 16-18 107/73 Date of Session: 07/08/18 Chief Complaint:: Discharge Note HPI: Patient addressng Alcohol Dependence, Cannabis Abuse comorbid with Nicotine Depenence, Mental Retardation and Substance-Induced Mood Disorder ROS: Alcohol related seizure, Blind right eye, COPD, Extropion right eye Current Medications: Active Medications Generic Name Dose Route Start Last Admin Trade Name Freq PRN Reason Stop Dose Admin Acetaminophen 650 mg 06/23/18 12:08 06/25/18 21:11 Tylenol - PO 650 mg Q4H PRN Administration FEVER Al Hydroxide/Mg Hydroxide 30 ml 06/23/18 12:08 Mylanta Oral Suspension - PO Q6H PRN DYSPEPSIA Bacitracin 0.9 gm 06/24/18 22:00 07/07/18 22:05 Bacitracin - TP Not Given BID KARY Bismuth Subsalicylate 30 ml 06/23/18 12:14 06/25/18 10:36 Pepto-Bismol Liquid - PO 30 ml BID PRN Administration DIARRHEA Eucalyptus/Menthol/Phenol/Sorbitol 1 each 06/23/18 12:08 Cepastat Lozenge - MM Q4H PRN SORE THROAT Guaifenesin 10 ml 06/23/18 12:08 Robitussin Dm - PO Q6H PRN COUGH Hydroxyzine Pamoate 50 mg 06/23/18 12:08 07/02/18 21:58 Vistaril - PO 50 mg Q4H PRN Administration AGITATION Ibuprofen 400 mg 06/23/18 12:08 07/05/18 10:10 Motrin - PO 400 mg Q6H PRN Administration Pain Level 4-6 Lactic Acid 1 applic 07/07/18 12:30 07/07/18 22:05 Lac-Hydrin 12 TP Not Given BID KARY Loperamide HCl 4 mg 06/23/18 12:08 Imodium - PO Q6H PRN DIARRHEA Magnesium Citrate 300 ml 06/23/18 12:08 Citroma - PO Q48H PRN CONSTIPATION Magnesium Hydroxide 30 ml 06/23/18 12:08 Milk Of Magnesia - PO DAILY PRN CONSTIPATION Melatonin 5 mg 06/23/18 22:00 07/06/18 21:39 Melatonin PO 5 mg HS PRN Administration INSOMNIA Methyl Salicylate 1 applic 07/05/18 10:00 07/07/18 22:05 Rakesh-Izquierdo - TP Not Given BID KARY Nicotine 21 mg 06/23/18 12:45 07/07/18 09:38 Nicoderm Patch - TD Not Given DAILY KARY Nicotine Polacrilex 4 mg 06/23/18 12:08 07/07/18 09:40 Nicorette Gum - BUC 4 mg Q2H PRN Administration NICOTINE REPLACEMENT RX Multivit/Folic Acid/Iron 1 tab 06/24/18 10:00 07/07/18 09:38 Vitamins (Sjr) - PO 1 tab DAILY KARY Administration Pseudoephedrine/Triprolidine 1 combo 06/23/18 12:08 Actifed - PO TID PRN NASAL CONGESTION Thiamine HCl 100 mg 06/23/18 22:00 07/07/18 22:05 Vitamin B1 - PO Not Given HS KARY Current Side Effect: No Lab tests ordered: Yes Lab tests reviewed: Yes Provider note:: Patient has completed this program today. He has met his tretment goals and will continue to address his issues in alf residential treatment at [facility]. Told sally that from his participation in this program, he has learned the importance of making meetings and have a sponsor. He is stable for discharge today Total face to face time:: 35 Mental Status Exam - Mental Status Exam Alert and Oriented to: Time, Place, Person Cognitive Function: Fair Patient Appearance: Well Groomed Mood: Hopeful, Euthymic Affect: Appropriate Patient Behavior: Cooperative Speech Pattern: Clear Voice Loudness: Normal Thought Process: Intact, Goal Oriented Thought Disorder: Not Present Hallucinations: Denies Suicidal Ideation: Denies Homicidal Ideation: Denies Insight/Judgement: Fair Sleep: Well Appetite: Good Muscle strength/Tone: Normal Gait/Station: Normal Psychiatric Treatment Plan - Problem List (1) Alcohol dependence Current Visit: No (2) Cannabis abuse Current Visit: No (3) Nicotine dependence Current Visit: No Qualifiers: Nicotine product type: cigarettes Substance use status: in withdrawal Qualified Code(s): F17.213 - Nicotine dependence, cigarettes, with withdrawal (4) Substance induced mood disorder Current Visit: No (5) mental retardation nos Current Visit: No (6) Alcohol related seizure Current Visit: No (7) Blind right eye Current Visit: No (8) COPD (chronic obstructive pulmonary disease) Current Visit: No Qualifiers: COPD type: emphysema (9) Exotropia, right eye Current Visit: No Initial treatment plan: Patient is discharged today and referred to [facility] for alf residential treatment
== END 2018-07-08 10:00 | disposition home or self-care (01) | DRG 772 ==
LOC: YASAS 11:20 → Y3W 11:25
PROVIDERS: ADMIT Psychiatry & Neurology Psychiatry; ATTEND Psychiatry & Neurology Psychiatry
PROC: HZ42ZZZ Group Counseling for Substance Abuse Treatment, Cognitive-Behavioral (ICD-10-PCS; principal; 2018-06-23)
DX: F10.20 Alcohol dependence, uncomplicated (principal); F12.10 Cannabis abuse, uncomplicated; F17.213 Nicotine dependence, cigarettes, with withdrawal; F19.24 Other psychoactive substance dependence with psychoactive substance-induced mood disorder; J43.9 Emphysema, unspecified; F79 Unspecified intellectual disabilities; H54.61 Unqualified visual loss, right eye, normal vision left eye; H50.111 Monocular exotropia, right eye; L03.116 Cellulitis of left lower limb; L85.3 Xerosis cutis; M25.522 Pain in left elbow
CPT/HCPCS: 81003; 81015; 87086

== ENCOUNTER 2018-10-22 08:31 | Inpatient (IN) | payer OTHER ==
--- NOTE | 2018-10-22 11:42 | HP ---
CIWA Score Nausea/Vomitin-No Nausea/No Vomiting Muscle Tremors: 4-Moderate,w/Arms Extend Anxiety: 0-No Anxiety, at Ease Agitation: 5 Paroxysmal Sweats: 3 Orientation: 0-Oriented Tacttile Disturbances: 0-None Auditory Disturbances: 0-None Visual Disturbances: 0-None Headache: 0-None Present CIWA-Ar Total Score: 12 - Admission Criteria OASAS Guidelines: Admission for Medically Managed Detox: Requires at least one of the followin. CIWA greater than 12 2. Seizures within the past 24 hours 3. Delirium tremens within the past 24 hours 4. Hallucinations within the past 24 hours 5. Acute intervention needed for co occurring medical disorder 6. Acute intervention needed for co occurring psychiatric disorder 7. Severe withdrawal that cannot be handled at a lower level of care (continued vomiting, continued diarrhea, abnormal vital signs) requiring intravenous medication and/or fluids 8. Admission ROS S - HPI Allergies/Adverse Reactions: Allergies Allergy/AdvReac Type Severity Reaction Status Date / Time No Known Allergies Allergy Verified 10/22/18 10:36 History of Present Illness: pt here requesting detox from etoh use , reports 1 x 6-pk /day since January 1989 after the of his parents ,+ blackouts , denies seizures ,+ falls while intoxicated , with fracture left ankle / ORIF 2000 , referred to this facility by [facility] , reports tremors if not drinking , starts drinking in the mornings . Patient is poor historian , appears to have intellectual deficit , reports completed 10th grade . denies illicits. utox neg for all meredith 0.000 tobacco : 1 ppd since age 18 PMHx : R eye blindness since , MR PSHx : left ankle left inguinal hernia 2009 Psych : denies Meds : denies SHx : homeless since age 16 . - Ebola screening Have you traveled outside of the country in the last 21 days: No Have you had contact with anyone from an Ebola affected area: No Have you been sick,other than usual withdrawal symptoms: No Do you have a fever: No - Review of Systems Constitutional: See HPI EENT: reports: Hearing Loss, Other (glasses - reading , " no teeth , no dentures ") Respiratory: reports: No Symptoms reported Cardiac: reports: No Symptoms Reported GI: reports: See HPI : reports: No Symptoms Reported Musculoskeletal: reports: Joint Stiffness (left ankle old injury / surgery) Integumentary: reports: No Symptoms Reported Neuro: reports: See HPI, Headache Endocrine: reports: No Symptoms Reported Hematology: reports: No Symptoms Reported Psychiatric: reports: Orientated x3, Agitated, Anxious, other (laughing at random intervals) Patient History - Patient Medical History Hx Anemia: No Hx Asthma: No Hx Chronic Obstructive Pulmonary Disease (COPD): Yes (NOT ON MEDS) Hx Cancer: No Hx Cardiac Disorders: No Hx Congestive Heart Failure: No Hx Hypertension: No Hx Hypercholesterolemia: No Hx Pacemaker: No HX Cerebrovascular Accident: No Hx Seizures: No Hx Dementia: No Hx Diabetes: No Hx Gastrointestinal Disorders: No Hx Liver Disease: No Hx Genitourinary Disorders: No Hx Sexually Transmitted Disorders: No Hx Renal Disease (ESRD): No Hx Thyroid Disease: No Hx Human Immunodeficiency Virus (HIV): No Hx Hepatitis C: No Hx Depression: Yes Hx Suicide Attempt: No Hx Bipolar Disorder: No Hx Schizophrenia: No - Patient Surgical History Past Surgical History: Yes Hx Neurologic Surgery: No Hx Cataract Extraction: No Hx Cardiac Surgery: No Hx Lung Surgery: No Hx Breast Surgery: No Hx Breast Biopsy: No Hx Abdominal Surgery: No Hx Appendectomy: No Hx Cholecystectomy: No Hx Genitourinary Surgery: No Hx Section: No Hx Orthopedic Surgery: Yes (left ankle with ORIF due to fracture) Anesthesia Reaction: No - PPD History Previous Implant?: Yes Documented Results: Negative w/proof Implanted On Prior R Admission?: Yes Date: 06/21/18 Results: 0 MM - Smoking Cessation Smoking history: Current every day smoker Have you smoked in the past 12 months: Yes Aproximately how many cigarettes per day: 20 Cigars Per Day: 20 Hx Chewing Tobacco Use: No Initiated information on smoking cessation: No - Substances Abused Alcohol Route: Oral Frequency: Daily Amount used: 6 25 OZ BEERS Age of first use: 20 Date of Last Use: 10/21/18 Family Disease History - Family Disease History Family Disease History: Heart Disease: Father (, alcohol), Mother ( , alcohol), Other: Father, Mother, Brother (one - living ), Sister (two living) Admission Physical Exam BHS - Vital Signs Vital Signs: Vital Signs - 24 hr 10/22/18 08:50 Temperature 99.2 F Pulse Rate 118 H Respiratory 20 Rate Blood Pressure 136/99 - Physical General Appearance: Yes: Disheveled, Moderate Distress, Tremorous HEENTM: Yes: Normocephalic, Normal Voice, Other (r eye blind , poor dentition) Respiratory: Yes: Chest Non-Tender, Lungs Clear, Normal Breath Sounds Neck: Yes: No masses,lesions,Nodules, Trachea in good position Breast: Yes: Breast Exam Deferred Cardiology: Yes: Regular Rhythm, Regular Rate, S1, S2, Tachycardia Abdominal: Yes: Normal Bowel Sounds, Flat, Soft Genitourinary: Yes: Within Normal Limits Back: Yes: Normal Inspection Musculoskeletal: Yes: Other (staggering gait , increased kyphosis thoracic spine .) Extremities: Yes: Normal Capillary Refill, Other (OA deformities talya hands) Neurological: Yes: Fully Oriented, Alert, Motor Strength 5/5 Integumentary: Yes: Normal Color, Dry, Warm - Diagnostic (1) Alcohol dependence with uncomplicated withdrawal Current Visit: No Status: Acute (2) Blind right eye Current Visit: No Status: Chronic (3) Nicotine dependence Current Visit: No Status: Acute Qualifiers: Nicotine product type: cigarettes Substance use status: in withdrawal Qualified Code(s): F17.213 - Nicotine dependence, cigarettes, with withdrawal BHS Breath Alcohol Content Breath Alcohol Content: 0 Urine Drug Screen - Results Drug Screen Negative: Yes
[2018-10-22] MEDS ORDERED: chlordiazePOXIDE HCL 25 MG CAPSULE PO PRN (11:54)
[2018-10-22] MEDS ORDERED: IBUPROFEN 400 MG TABLET (FP) PO PRN (11:54)
[2018-10-22] MEDS ORDERED: MAGNESIUM CITRATE 300 ML BOTTLE PO PRN (11:54)
[2018-10-22] MEDS ORDERED: MENTHOL/PHENOL 1 EACH UD MM PRN (11:54)
[2018-10-22] MEDS ORDERED: guaiFENesin/D-METHORPHAN HB 10 ML UNIT-DOSE CUPS PO PRN (11:54)
[2018-10-22] MEDS ORDERED: MAG HYDROX/AL HYDROX/SIMETH 30 ML UNIT-DOSE CUP PO PRN (11:54)
[2018-10-22] MEDS ORDERED: MAGNESIUM HYDROX 2400MG/30ML ORAL SUSPENSION 30 ML CUP PO PRN (11:54)
[2018-10-22] MEDS ORDERED: ACETAMINOPHEN 325 MG TABLET (FP) PO PRN (11:54)
[2018-10-22] MEDS: NICOTINE POLACRILEX 2 MG GUM BUC PRN ×2 (14:56→22:29)
[2018-10-22] MEDS: chlordiazePOXIDE HCL 25 MG CAPSULE PO SCH ×2 (17:51→22:27)
[2018-10-22] MEDS ORDERED: MELATONIN 5 MG TABLETS PO PRN (22:00)
[2018-10-22] MEDS: THIAMINE HCL 100 MG TABLET (FP) PO SCH (22:27)
[2018-10-23] MEDS: chlordiazePOXIDE HCL 25 MG CAPSULE PO SCH ×4 (05:51→23:49)
[2018-10-23] MEDS: NICOTINE POLACRILEX 2 MG GUM BUC PRN (05:52)
[2018-10-23] MEDS: P-EPHED 60MG/TRIPROLIDI 2.5MG TABLET PO PRN ×2 (05:53→13:46)
[2018-10-23 10:57] LABS: ALBUMIN 3.9 g/dl (3.4-5.0); ALK PHOS 133 U/L (45-117); ANION GAP 7 MMOL/L (8-16); BILIRUBIN,TOTAL 0.6 mg/dL (0.2-1); BLOOD UREA NITROGEN 8 mg/dL (7-18); CALCIUM 9.9 mg/dL (8.5-10.1); CHLORIDE 99 mmol/L (98-107); CO2 29 mmol/L (21-32); CREATININE 0.6 mg/dL (0.55-1.3); GLUCOSE,RANDOM 97 mg/dL (74-106); POTASSIUM 3.9 mmol/L (3.5-5.1); SGOT/AST 27 U/L (15-37); SGPT/ALT 25 U/L (13-61); SODIUM 135 mmol/L (136-145); TOT PROT 7.7 g/dl (6.4-8.2)
[2018-10-23] MEDS: PRENATAL VITAMINS W/ FOLIC ACID TABLET (FP) PO SCH (10:57)
[2018-10-23 11:07] LABS: MCHC 32.4 g/dl (32.0-35.9); MEAN CELL VOLUME 105.1 fl (80-96); MEAN PLT VOLUME 10.4 fl (7.5-11.1); PLATELET COUNT 219 K/MM3 (134-434); RBC 3.81 M/mm3 (4.00-5.60); RDW 13.6 % (11.9-15.9)
[2018-10-23] MEDS ORDERED: FLU VACCINE QUAD 60 MCG/0.5 ML (MDV 18-19) IM ONE (12:00)
--- NOTE | 2018-10-23 17:24 | PN ---
S CIWA - CIWA Score Nausea/Vomitin-No Nausea/No Vomiting Muscle Tremors: 3 Anxiety: 1-Mildly Anxious Agitation: 1-Slight > Activity Paroxysmal Sweats: 3 Orientation: 0-Oriented Tacttile Disturbances: 0-None Auditory Disturbances: 0-None Visual Disturbances: 0-None Headache: 0-None Present CIWA-Ar Total Score: 8 S Progress Note (SOAP) Subjective: sweats Objective: 10/23/18 17:23 A & o x3 noted ambulating steadily on unit Vital Signs Temperature 98.2 F 10/23/18 17:08 Pulse Rate 87 10/23/18 17:08 Respiratory Rate 18 10/23/18 17:08 Blood Pressure 91/60 10/23/18 17:08 O2 Sat by Pulse Oximetry (%) Laboratory Last Values WBC 5.0 K/mm3 (4.0-10.0) 10/23/18 05:40 RBC 3.81 M/mm3 (4.00-5.60) L 10/23/18 05:40 Hgb 13.0 GM/dL (11.7-16.9) 10/23/18 05:40 Hct 40.0 % (35.4-49) 10/23/18 05:40 MCV 105.1 fl (80-96) H 10/23/18 05:40 MCH 34.0 pg (25.7-33.7) H 10/23/18 05:40 MCHC 32.4 g/dl (32.0-35.9) 10/23/18 05:40 RDW 13.6 % (11.9-15.9) D 10/23/18 05:40 Plt Count 219 K/MM3 (134-434) D 10/23/18 05:40 MPV 10.4 fl (7.5-11.1) D 10/23/18 05:40 Sodium 135 mmol/L (136-145) L 10/23/18 05:40 Potassium 3.9 mmol/L (3.5-5.1) 10/23/18 05:40 Chloride 99 mmol/L (98-107) 10/23/18 05:40 Carbon Dioxide 29 mmol/L (21-32) 10/23/18 05:40 Anion Gap 7 MMOL/L (8-16) L 10/23/18 05:40 BUN 8 mg/dL (7-18) 10/23/18 05:40 Creatinine 0.6 mg/dL (0.55-1.3) 10/23/18 05:40 Creat Clearance w eGFR > 60 (>60) 10/23/18 05:40 Random Glucose 97 mg/dL (74-106) 10/23/18 05:40 Calcium 9.9 mg/dL (8.5-10.1) 10/23/18 05:40 Total Bilirubin 0.6 mg/dL (0.2-1) 10/23/18 05:40 AST 27 U/L (15-37) 10/23/18 05:40 ALT 25 U/L (13-61) 10/23/18 05:40 Alkaline Phosphatase 133 U/L (45-117) H 10/23/18 05:40 Total Protein 7.7 g/dl (6.4-8.2) 10/23/18 05:40 Albumin 3.9 g/dl (3.4-5.0) 10/23/18 05:40 labs noted Assessment: 10/23/18 17:24 withdrawal sx Plan: continue detox
[2018-10-23] MEDS: THIAMINE HCL 100 MG TABLET (FP) PO SCH (23:48)
[2018-10-24] MEDS: chlordiazePOXIDE HCL 25 MG CAPSULE PO SCH ×2 (05:15→10:29)
[2018-10-24] MEDS: PRENATAL VITAMINS W/ FOLIC ACID TABLET (FP) PO SCH (10:29)
--- NOTE | 2018-10-24 13:13 | PN ---
[facility] CIWA - CIWA Score Nausea/Vomitin-No Nausea/No Vomiting Muscle Tremors: 1-None Visible, but [place] Anxiety: 1-Mildly Anxious Agitation: 1-Slight > Activity Paroxysmal Sweats: No Perspiration Orientation: 0-Oriented Tacttile Disturbances: 0-None Auditory Disturbances: 0-None Visual Disturbances: 0-None Headache: 1-Very Mild CIWA-Ar Total Score: 4 BHS Progress Note (SOAP) Subjective: mild tremor otherwise feeling ok no gi distress no sweating Objective: 10/24/18 13:14 Vital Signs Temperature 97.7 F 10/24/18 09:41 Pulse Rate 96 H 10/24/18 09:41 Respiratory Rate 18 10/24/18 09:41 Blood Pressure 100/67 10/24/18 09:41 O2 Sat by Pulse Oximetry (%) Laboratory Last Values WBC 5.0 K/mm3 (4.0-10.0) 10/23/18 05:40 RBC 3.81 M/mm3 (4.00-5.60) L 10/23/18 05:40 Hgb 13.0 GM/dL (11.7-16.9) 10/23/18 05:40 Hct 40.0 % (35.4-49) 10/23/18 05:40 MCV 105.1 fl (80-96) H 10/23/18 05:40 MCH 34.0 pg (25.7-33.7) H 10/23/18 05:40 MCHC 32.4 g/dl (32.0-35.9) 10/23/18 05:40 RDW 13.6 % (11.9-15.9) D 10/23/18 05:40 Plt Count 219 K/MM3 (134-434) D 10/23/18 05:40 MPV 10.4 fl (7.5-11.1) D 10/23/18 05:40 Sodium 135 mmol/L (136-145) L 10/23/18 05:40 Potassium 3.9 mmol/L (3.5-5.1) 10/23/18 05:40 Chloride 99 mmol/L (98-107) 10/23/18 05:40 Carbon Dioxide 29 mmol/L (21-32) 10/23/18 05:40 Anion Gap 7 MMOL/L (8-16) L 10/23/18 05:40 BUN 8 mg/dL (7-18) 10/23/18 05:40 Creatinine 0.6 mg/dL (0.55-1.3) 10/23/18 05:40 Creat Clearance w eGFR > 60 (>60) 10/23/18 05:40 Random Glucose 97 mg/dL (74-106) 10/23/18 05:40 Calcium 9.9 mg/dL (8.5-10.1) 10/23/18 05:40 Total Bilirubin 0.6 mg/dL (0.2-1) 10/23/18 05:40 AST 27 U/L (15-37) 10/23/18 05:40 ALT 25 U/L (13-61) 10/23/18 05:40 Alkaline Phosphatase 133 U/L (45-117) H 10/23/18 05:40 Total Protein 7.7 g/dl (6.4-8.2) 10/23/18 05:40 Albumin 3.9 g/dl (3.4-5.0) 10/23/18 05:40 RPR Titer Nonreactive (NONREACTIVE) 10/23/18 05:40 lab noted Assessment: 10/24/18 13:15 withdrawal sx Plan: continue detox
[2018-10-24] MEDS: chlordiazePOXIDE 5 MG CAPSULE PO SCH ×2 (17:24→22:33)
[2018-10-24] MEDS: P-EPHED 60MG/TRIPROLIDI 2.5MG TABLET PO PRN (20:17)
[2018-10-24] MEDS: THIAMINE HCL 100 MG TABLET (FP) PO SCH (22:33)
[2018-10-25] MEDS: chlordiazePOXIDE 5 MG CAPSULE PO SCH ×2 (05:39→10:27)
[2018-10-25] MEDS: PRENATAL VITAMINS W/ FOLIC ACID TABLET (FP) PO SCH (10:27)
[2018-10-25] MEDS: NICOTINE POLACRILEX 2 MG GUM BUC PRN ×2 (10:28→17:27)
--- NOTE | 2018-10-25 15:16 | PN ---
BHS Progress Note (SOAP) Subjective: Diarrhea, Sweating, Tremors. Objective: PATIENT A & O X 2 (UNCERTAIN ABOUT CURRENT DAY / DATE). PATIENT OBSERVED AMBULATING ON UNIT. IN NO ACUTE DISTRESS. 10/25/18 15:15 Vital Signs Temperature 99.3 F 10/25/18 13:26 Pulse Rate 99 H 10/25/18 13:26 Respiratory Rate 16 10/25/18 13:26 Blood Pressure 117/79 10/25/18 13:26 O2 Sat by Pulse Oximetry (%) Laboratory Tests 10/23/18 10/23/18 10/23/18 05:40 05:40 05:40 WBC 5.0 RBC 3.81 L Hgb 13.0 Hct 40.0 MCV 105.1 H MCH 34.0 H MCHC 32.4 RDW 13.6 D Plt Count 219 D MPV 10.4 D Sodium 135 L Potassium 3.9 Chloride 99 Carbon Dioxide 29 Anion Gap 7 L BUN 8 Creatinine 0.6 Creat Clearance w eGFR > 60 Random Glucose 97 Calcium 9.9 Total Bilirubin 0.6 AST 27 ALT 25 Alkaline Phosphatase 133 H Total Protein 7.7 Albumin 3.9 RPR Titer Nonreactive LABS NOTED. Assessment: 10/25/18 15:16 WITHDRAWAL SYMPTOMS. Plan: CONTINUE DETOX. INCREASE DAILY PO FLUID INTAKE. PRN IMMDODIUM FOR DIARRHEA. PATIENT SCHEDULED FOR D/C TOMORROW.
[2018-10-25] MEDS: chlordiazePOXIDE HCL 10 MG CAPSULE PO SCH ×2 (17:26→22:24)
[2018-10-25] MEDS: THIAMINE HCL 100 MG TABLET (FP) PO SCH (22:24)
[2018-10-26] MEDS: chlordiazePOXIDE HCL 10 MG CAPSULE PO SCH (06:01)
[2018-10-26 09:18] VITALS: BP 134/92; PULSE 95; TEMP 98
--- NOTE | 2018-10-26 09:20 | DS ---
[facility] Detox Discharge Summary Admission Date: 10/22/18 Discharge Date: 10/26/18 - History Present History: Alcohol Dependence, Cannabis Dependence - Physical Exam Results Vital Signs: Vital Signs Temperature 98.1 F 10/26/18 07:42 Pulse Rate 105 H 10/26/18 07:42 Respiratory Rate 20 10/26/18 07:42 Blood Pressure 128/81 10/26/18 07:42 O2 Sat by Pulse Oximetry (%) - Treatment Hospital Course: Detox Protocol Followed, Detoxed Safely, Responded well, Discharged Condition Good, Rehab Referral Accepted - Medication Discharge Medications: Ambulatory Orders NK [No Known Home Medication] 11/27/13 - Diagnosis (1) alcohol induced mood disorder Current Visit: No Status: Active (2) depression Current Visit: No Status: Active (3) syncope alcohol related Current Visit: No Status: Active (4) Alcohol dependence with uncomplicated withdrawal Current Visit: Yes Status: Chronic (5) Cannabis abuse Current Visit: No Status: Acute (6) Cellulitis of heel, left Current Visit: No Status: Acute (7) Dry skin dermatitis Current Visit: No Status: Acute (8) Nicotine dependence Current Visit: Yes Status: Chronic Qualifiers: Nicotine product type: cigarettes Substance use status: uncomplicated Qualified Code(s): F17.210 - Nicotine dependence, cigarettes, uncomplicated (9) Substance induced mood disorder Current Visit: No Status: Acute (10) Blind right eye Current Visit: No Status: Chronic (11) COPD (chronic obstructive pulmonary disease) Current Visit: No Status: Chronic Qualifiers: COPD type: emphysema (12) Exotropia, right eye Current Visit: No Status: Chronic (13) History of seizure Current Visit: No Status: Chronic (14) Underweight Current Visit: No Status: Chronic (15) mental retardation nos Current Visit: No Status: Chronic (16) Alcohol related seizure Current Visit: No Status: Suspected - AMA Did Patient Leave Against Medical Advice: No (ref[facility] or [facility])
[2018-10-26] MEDS: PRENATAL VITAMINS W/ FOLIC ACID TABLET (FP) PO SCH (09:48)
[2018-10-26] MEDS: NICOTINE POLACRILEX 2 MG GUM BUC PRN (09:49)
== END 2018-10-26 11:53 | disposition home or self-care (01) | DRG 775 ==
LOC: YASAS 08:31 → Y6N 12:00
PROC: HZ2ZZZZ Detoxification Services for Substance Abuse Treatment (ICD-10-PCS; principal; 2018-10-22)
DX: F10.230 Alcohol dependence with withdrawal, uncomplicated (principal); F12.10 Cannabis abuse, uncomplicated; F17.213 Nicotine dependence, cigarettes, with withdrawal; F19.24 Other psychoactive substance dependence with psychoactive substance-induced mood disorder; F10.24 Alcohol dependence with alcohol-induced mood disorder; J43.8 Other emphysema; L03.116 Cellulitis of left lower limb; H50.10 Unspecified exotropia; H54.40 Blindness, one eye, unspecified eye; L85.3 Xerosis cutis; R63.6 Underweight; Z68.20 Body mass index [BMI] 20.0-20.9, adult; Z86.69 Personal history of other diseases of the nervous system and sense organs
CPT/HCPCS: 36415; 80053; 85027; 86593; 90688; G0008

== ENCOUNTER 2018-12-12 09:26 | Inpatient (IN) | payer OTHER ==
[2018-12-12 09:42] VITALS: BMI 19.9
--- NOTE | 2018-12-12 10:24 | HP ---
CIWA Score Nausea/Vomitin Muscle Tremors: 2 Anxiety: 2 Agitation: 2 Paroxysmal Sweats: 1-Minimal Palms Moist Orientation: 0-Oriented Tacttile Disturbances: 1-Very Mild Itch/Numbness Auditory Disturbances: 1-Very Mild Visual Disturbances: 0-None Headache: 2-Mild CIWA-Ar Total Score: 13 - Admission Criteria OASAS Guidelines: Admission for Medically Managed Detox: Requires at least one of the followin. CIWA greater than 12 2. Seizures within the past 24 hours 3. Delirium tremens within the past 24 hours 4. Hallucinations within the past 24 hours 5. Acute intervention needed for co occurring medical disorder 6. Acute intervention needed for co occurring psychiatric disorder 7. Severe withdrawal that cannot be handled at a lower level of care (continued vomiting, continued diarrhea, abnormal vital signs) requiring intravenous medication and/or fluids 8. Patient presents the following: CIWA greater than 12 Admission Criteria Met: Admission criteria met Admission ROS BHS - HPI Chief Complaint: i need help to stop drinking alcohol Allergies/Adverse Reactions: Allergies Allergy/AdvReac Type Severity Reaction Status Date / Time No Known Allergies Allergy Verified 12/12/18 10:00 History of Present Illness: this 53 years old male with alcohol dependence seeking detox,withdrawal symptom, ,fell seen in [place] last night stated has xray done no fx has giovany bandage right elbow clear to come for detox multiple admissions in detox,last [facility] 10/22/18 to 08/26/19 nicotine dependence 1 pack /day no significant period of sobriety plan for rehab after detox blindness of right eye since Exam Limitations: No Limitations - Ebola screening Have you traveled outside of the country in the last 21 days: No (N) Have you had contact with anyone from an Ebola affected area: No Have you been sick,other than usual withdrawal symptoms: No Do you have a fever: No - Review of Systems Constitutional: Loss of Appetite, Malaise, Night Sweats, Changes in sleep, Weakness, Unintentional Wgt. Loss EENT: reports: Tearing, Nose Congestion Cardiac: reports: No Symptoms Reported GI: reports: Nausea, Poor Appetite, Vomiting, Abdominal cramping : reports: No Symptoms Reported Musculoskeletal: reports: Back Pain, Muscle Pain, Other (giovany bandage of right elbow) Integumentary: reports: Dryness Neuro: reports: Headache, Tremors Endocrine: reports: No Symptoms Reported Hematology: reports: No Symptoms Reported Psychiatric: reports: No Sypmtoms Reported, Mood/Affect Appropiate, Orientated x3 Other Systems: Reviewed and Negative Patient History - Patient Medical History Hx Anemia: No Hx Asthma: No Hx Chronic Obstructive Pulmonary Disease (COPD): Yes (no med) Hx Cancer: No Hx Cardiac Disorders: No Hx Congestive Heart Failure: No Hx Hypertension: No Hx Hypercholesterolemia: No Hx Pacemaker: No HX Cerebrovascular Accident: No Hx Seizures: No Hx Dementia: No Hx Diabetes: No Hx Gastrointestinal Disorders: No Hx Liver Disease: No Hx Genitourinary Disorders: No Hx Sexually Transmitted Disorders: No Hx Renal Disease (ESRD): No Hx Thyroid Disease: No Hx Human Immunodeficiency Virus (HIV): No (last 2018 negative) Hx Hepatitis C: No Hx Depression: Yes (no med) Hx Suicide Attempt: No Hx Bipolar Disorder: No Hx Schizophrenia: No Other Medical History: no suicidal,no homicidal - Patient Surgical History Past Surgical History: Yes Hx Neurologic Surgery: No Hx Cataract Extraction: No Hx Cardiac Surgery: No Hx Lung Surgery: No Hx Breast Surgery: No Hx Breast Biopsy: No Hx Abdominal Surgery: No Hx Appendectomy: No Hx Cholecystectomy: No Hx Genitourinary Surgery: No Hx Section: No Hx Orthopedic Surgery: Yes (left ankle with ORIF due to fracture) Anesthesia Reaction: No - PPD History Documented Results: Negative w/proof Date: 06/21/18 Results: 0 MM PPD to be Administered?: No - Smoking Cessation Smoking history: Current every day smoker Have you smoked in the past 12 months: Yes Aproximately how many cigarettes per day: 20 Cigars Per Day: 20 Hx Chewing Tobacco Use: No Initiated information on smoking cessation: Yes 'Breaking Loose' booklet given: 12/12/18 - Substance & Tx. History Hx Alcohol Use: Yes Hx Substance Use: No Substance Use Type: Alcohol Hx Substance Use Treatment: Yes ([facility] 10/22/18 to 10/26/18) - Substances Abused Alcohol Route: Oral Frequency: Daily Amount used: 1 6PACK BEER Age of first use: 21 Date of Last Use: 12/12/18 Family Disease History - Family Disease History Family Disease History: Heart Disease: Father (, alcohol), Mother ( , alcohol), Other: Father, Mother, Brother (one - living ), Sister (two living) Admission Physical Exam BHS - Vital Signs Vital Signs: Vital Signs - 24 hr 12/12/18 09:40 Temperature 99.1 F Pulse Rate 105 H Respiratory 18 Rate Blood Pressure 137/82 - Physical General Appearance: Yes: Moderate Distress, Tremorous, Irritable, Sweating, Anxious HEENTM: Yes: Normal ENT Inspection, Pharynx Normal, Other (blindness of right eye since ) Respiratory: Yes: Lungs Clear, Normal Breath Sounds, No Respiratory Distress Neck: Yes: Within Normal Limits, Supple, Trachea in good position Breast: Yes: Within Normal Limits Cardiology: Yes: Within Normal Limits, Regular Rhythm, Regular Rate, S1, S2 Abdominal: Yes: Within Normal Limits, Normal Bowel Sounds, Non Tender, Flat, Soft Genitourinary: Yes: Within Normal Limits Back: Yes: Muscle Spasm Musculoskeletal: Yes: Back pain, Muscle Pain Extremities: Yes: Tremors, Other (right elbow with giovany badage) 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, Fully Oriented, Alert, Motor Strength 5/5 Integumentary: Yes: Dry, Other (tinea pedis) Lymphatic: Yes: Within Normal Limits - Diagnostic (1) Alcohol dependence with uncomplicated withdrawal Current Visit: No Status: Chronic (2) Blind right eye Current Visit: No Status: Chronic (3) COPD (chronic obstructive pulmonary disease) Current Visit: No Status: Chronic Qualifiers: COPD type: emphysema (4) Nicotine dependence Current Visit: No Status: Chronic Qualifiers: Nicotine product type: cigarettes Substance use status: uncomplicated Qualified Code(s): F17.210 - Nicotine dependence, cigarettes, uncomplicated (5) Underweight Current Visit: No Status: Chronic (6) Contusion of right elbow Current Visit: Yes Status: Acute (7) Abrasion of left ankle Current Visit: Yes Status: Acute Cleared for Admission [facility] - Detox or Rehab [facility] Level of Care: Medically Managed Detox Regimen/Protocol: Librium [facility] Breath Alcohol Content Breath Alcohol Content: 0 Urine Drug Screen - Results Drug Screen Negative: No Urine Drug Screen Results: BZO-Benzodiazepines Inpatient Rehab Admission - Rehab Decision to Admit Inpatient rehab admission?: No
[2018-12-12] MEDS ORDERED: MENTHOL/PHENOL 1 EACH UD MM PRN (10:34)
[2018-12-12] MEDS ORDERED: IBUPROFEN 400 MG TABLET (FP) PO PRN (10:34)
[2018-12-12] MEDS ORDERED: guaiFENesin/D-METHORPHAN HB 10 ML UNIT-DOSE CUPS PO PRN (10:34)
[2018-12-12] MEDS ORDERED: MAGNESIUM HYDROX 2400MG/30ML ORAL SUSPENSION 30 ML CUP PO PRN (10:34)
[2018-12-12] MEDS ORDERED: MAGNESIUM CITRATE 300 ML BOTTLE PO PRN (10:34)
[2018-12-12] MEDS ORDERED: P-EPHED 60MG/TRIPROLIDI 2.5MG TABLET PO PRN (10:34)
[2018-12-12] MEDS ORDERED: chlordiazePOXIDE HCL 25 MG CAPSULE PO PRN (10:34)
[2018-12-12] MEDS ORDERED: LOPERAMIDE HCL 2 MG CAPSULE PO PRN (10:34)
[2018-12-12] MEDS ORDERED: MAG HYDROX/AL HYDROX/SIMETH 30 ML UNIT-DOSE CUP PO PRN (10:34)
[2018-12-12] MEDS: BACITRACIN 0.9 GM PACKET TP SCH ×2 (11:30→22:27)
[2018-12-12] MEDS: hydrOXYzine PAMOATE 25 MG CAPSULE (FP) PO PRN (14:17)
[2018-12-12] MEDS: NICOTINE POLACRILEX 2 MG GUM BUC PRN ×2 (14:17→17:25)
[2018-12-12] MEDS: chlordiazePOXIDE HCL 25 MG CAPSULE PO SCH ×2 (17:24→22:28)
[2018-12-12] MEDS: THIAMINE HCL 100 MG TABLET (FP) PO SCH (22:28)
[2018-12-12] MEDS: TOLNAFTATE 1% CREAM 15 GM TUBE TP SCH (22:28)
[2018-12-13] MEDS: chlordiazePOXIDE HCL 25 MG CAPSULE PO SCH ×4 (05:20→23:02)
[2018-12-13] MEDS: NICOTINE POLACRILEX 2 MG GUM BUC PRN ×2 (05:20→17:13)
[2018-12-13 10:01] LABS: ALBUMIN 3.4 g/dl (3.4-5.0); ALK PHOS 125 U/L (45-117); ANION GAP 8 MMOL/L (8-16); BILIRUBIN,TOTAL 0.8 mg/dL (0.2-1); BLOOD UREA NITROGEN 14 mg/dL (7-18); CALCIUM 9.8 mg/dL (8.5-10.1); CHLORIDE 102 mmol/L (98-107); CO2 29 mmol/L (21-32); CREATININE 0.7 mg/dL (0.55-1.3); GLUCOSE,RANDOM 80 mg/dL (74-106); POTASSIUM 4.4 mmol/L (3.5-5.1); SGOT/AST 25 U/L (15-37); SGPT/ALT 30 U/L (13-61); SODIUM 138 mmol/L (136-145); TOT PROT 7.6 g/dl (6.4-8.2)
[2018-12-13] MEDS: PRENATAL VITAMINS W/ FOLIC ACID TABLET (FP) PO SCH (10:18)
[2018-12-13] MEDS: TOLNAFTATE 1% CREAM 15 GM TUBE TP SCH ×2 (10:18→23:02)
[2018-12-13] MEDS: BACITRACIN 0.9 GM PACKET TP SCH ×2 (10:18→23:02)
[2018-12-13 10:29] LABS: HEMATOCRIT 38.6 % (35.4-49); MCH 33.4 pg (25.7-33.7); MCHC 33.7 g/dl (32.0-35.9); MEAN CELL VOLUME 99.1 fl (80-96); MEAN PLT VOLUME 8.1 fl (7.5-11.1); PLATELET COUNT 358 K/MM3 (134-434); RBC 3.89 M/mm3 (4.00-5.60); RDW 15.1 % (11.9-15.9); WHITE BLOOD COUNT 3.3 K/mm3 (4.0-10.0)
--- NOTE | 2018-12-13 12:21 | PN ---
[facility] CIWA - CIWA Score Nausea/Vomitin-No Nausea/No Vomiting Muscle Tremors: 4-Moderate,w/Arms Extend Anxiety: 4-Mod. Anxious/Guarded Agitation: 3 Paroxysmal Sweats: No Perspiration Orientation: 0-Oriented Tacttile Disturbances: 2-Mild Itch/Numbness/Burn Auditory Disturbances: 2-Mild Harshness/Frighten Visual Disturbances: 0-None Headache: 0-None Present CIWA-Ar Total Score: 15 S Progress Note (SOAP) Subjective: Tremors, Anxious, Interrupted Sleep. Objective: PATIENT A & O X 3, OBSERVED AMBULATING ON UNIT. IN NO ACUTE DISTRESS. PATIENT HAS VERA BANDAGE WRAPPED AROUND RIGHT ELBOW. PATIENT REPORTS THAT HE FELL YESTERDAY ON STREET PRIOR TO ADMISSION TO DETOX AND THAT HE WAS TAKEN TO [facility] ER AND THAT HE HAD AN X-RAY OF ELBOW DONE AND THAT THE RESULT OF THE X-RAY WAS NEGATIVE FOR FRACTURE. NO SWELLING, ERYTHEMA,WOUNDS, OR DISCHARGE NOTED IN RIGHT ELBOW AREA. GENERAL ELBOW AREA TENDER UPON PALPATION. 12/13/18 12:22 Vital Signs Temperature 99.9 F H 12/13/18 09:21 Pulse Rate 96 H 12/13/18 09:21 Respiratory Rate 18 12/13/18 09:21 Blood Pressure 144/87 12/13/18 09:21 O2 Sat by Pulse Oximetry (%) Laboratory Tests 12/13/18 12/13/18 12/13/18 07:00 07:00 07:00 WBC 3.3 L RBC 3.89 L Hgb 13.0 Hct 38.6 MCV 99.1 H D MCH 33.4 MCHC 33.7 RDW 15.1 D Plt Count 358 D MPV 8.1 D Sodium 138 Potassium 4.4 Chloride 102 Carbon Dioxide 29 Anion Gap 8 BUN 14 Creatinine 0.7 Creat Clearance w eGFR > 60 Random Glucose 80 Calcium 9.8 Total Bilirubin 0.8 AST 25 ALT 30 Alkaline Phosphatase 125 H Total Protein 7.6 Albumin 3.4 RPR Titer Nonreactive LABS NOTED. 12/13/18 12:30 Assessment: 12/13/18 12:26 WITHDRAWAL SYMPTOMS. Plan: CONTINUE DETOX. CONTINUE VERA BANDAGE ON RIGHT ELBOW NEEDED. PATIENT REPORTS THAT HE DOES NOT CURRENTLY HAVE A MEDICAL BILLING SERVICE. PATIENT ADVISED TO OBTAIN A MEDICAL BILLING SERVICE AT [facility] ( NEAR WHERE HE LIVES) AFTER DISCHARGE FROM DETOX UNIT FOR GENERAL MEDICAL ASSESSMENT AND FOR FURTHER EVALUATION OF WOUND TO RIGHT ELBOW. PATIENT VERBALIZED UNDERSTANDING OF RECOMMENDATION. NAPROXEN PO BID FOR PAIN IN RIGHT ELBOW. R.I.C.E. PROTOCOL RECOMMENDED FOR RIGHT ELBOW.
[2018-12-13] MEDS ORDERED: NAPROXEN 375 MG TABLET (FP) PO ONE (12:32)
[2018-12-13] MEDS: hydrOXYzine PAMOATE 25 MG CAPSULE (FP) PO PRN (17:00)
[2018-12-13] MEDS: NAPROXEN 375 MG TABLET (FP) PO SCH (17:03)
[2018-12-13] MEDS: THIAMINE HCL 100 MG TABLET (FP) PO SCH (23:03)
[2018-12-14] MEDS: ACETAMINOPHEN 325 MG TABLET (FP) PO PRN ×2 (01:16→05:33)
[2018-12-14] MEDS: MELATONIN 5 MG TABLETS PO PRN ×2 (01:22→22:12)
[2018-12-14] MEDS: chlordiazePOXIDE HCL 25 MG CAPSULE PO SCH ×2 (05:32→10:32)
[2018-12-14] MEDS: NAPROXEN 375 MG TABLET (FP) PO SCH ×2 (09:14→17:32)
[2018-12-14] MEDS: NICOTINE POLACRILEX 2 MG GUM BUC PRN (09:16)
[2018-12-14] MEDS: PRENATAL VITAMINS W/ FOLIC ACID TABLET (FP) PO SCH (10:31)
[2018-12-14] MEDS: BACITRACIN 0.9 GM PACKET TP SCH ×2 (10:32→23:09)
[2018-12-14] MEDS: TOLNAFTATE 1% CREAM 15 GM TUBE TP SCH ×2 (10:32→23:10)
--- NOTE | 2018-12-14 10:42 | PN ---
S CIWA - CIWA Score Nausea/Vomitin Muscle Tremors: 2 Anxiety: 2 Agitation: 2 Paroxysmal Sweats: 1-Minimal Palms Moist Orientation: 0-Oriented Tacttile Disturbances: 1-Very Mild Itch/Numbness Auditory Disturbances: 1-Very Mild Visual Disturbances: 0-None Headache: 2-Mild CIWA-Ar Total Score: 13 BHS Progress Note (SOAP) Subjective: alert,irritable,anxious,interrupted sleep,tremor Objective: 12/14/18 10:41 Vital Signs Temperature 98.2 F 12/14/18 09:27 Pulse Rate 92 H 12/14/18 09:27 Respiratory Rate 18 12/14/18 09:27 Blood Pressure 133/77 12/14/18 09:27 O2 Sat by Pulse Oximetry (%) 12/14/18 10:41 Vital Signs Temperature 98.2 F 12/14/18 09:27 Pulse Rate 92 H 12/14/18 09:27 Respiratory Rate 18 12/14/18 09:27 Blood Pressure 133/77 12/14/18 09:27 O2 Sat by Pulse Oximetry (%) Laboratory Last Values WBC 3.3 K/mm3 (4.0-10.0) L 12/13/18 07:00 RBC 3.89 M/mm3 (4.00-5.60) L 12/13/18 07:00 Hgb 13.0 GM/dL (11.7-16.9) 12/13/18 07:00 Hct 38.6 % (35.4-49) 12/13/18 07:00 MCV 99.1 fl (80-96) H D 12/13/18 07:00 MCH 33.4 pg (25.7-33.7) 12/13/18 07:00 MCHC 33.7 g/dl (32.0-35.9) 12/13/18 07:00 RDW 15.1 % (11.9-15.9) D 12/13/18 07:00 Plt Count 358 K/MM3 (134-434) D 12/13/18 07:00 MPV 8.1 fl (7.5-11.1) D 12/13/18 07:00 Sodium 138 mmol/L (136-145) 12/13/18 07:00 Potassium 4.4 mmol/L (3.5-5.1) 12/13/18 07:00 Chloride 102 mmol/L (98-107) 12/13/18 07:00 Carbon Dioxide 29 mmol/L (21-32) 12/13/18 07:00 Anion Gap 8 MMOL/L (8-16) 12/13/18 07:00 BUN 14 mg/dL (7-18) 12/13/18 07:00 Creatinine 0.7 mg/dL (0.55-1.3) 12/13/18 07:00 Creat Clearance w eGFR > 60 (>60) 12/13/18 07:00 Random Glucose 80 mg/dL (74-106) 12/13/18 07:00 Calcium 9.8 mg/dL (8.5-10.1) 12/13/18 07:00 Total Bilirubin 0.8 mg/dL (0.2-1) 12/13/18 07:00 AST 25 U/L (15-37) 12/13/18 07:00 ALT 30 U/L (13-61) 12/13/18 07:00 Alkaline Phosphatase 125 U/L (45-117) H 12/13/18 07:00 Total Protein 7.6 g/dl (6.4-8.2) 12/13/18 07:00 Albumin 3.4 g/dl (3.4-5.0) 12/13/18 07:00 RPR Titer Nonreactive (NONREACTIVE) 12/13/18 07:00 Assessment: 12/14/18 10:42 withdrawal symptom Plan: continue detox
[2018-12-14] MEDS: chlordiazePOXIDE 5 MG CAPSULE PO SCH ×2 (17:31→22:11)
--- NOTE | 2018-12-14 21:19 | PN ---
S Progress Note Note: Vital Signs Temperature 98.4 F 12/14/18 17:12 Pulse Rate 91 H 12/14/18 17:12 Respiratory Rate 18 12/14/18 17:12 Blood Pressure 100/70 12/14/18 17:12 O2 Sat by Pulse Oximetry (%) c/o of nasal congestion no relief with Actifed flonase nasal ordered continue to monitor
[2018-12-14] MEDS: THIAMINE HCL 100 MG TABLET (FP) PO SCH (22:12)
[2018-12-14] MEDS: FLUTICASONE PROP 0.05% 16 GM NASAL SPRAY NS SCH (23:09)
[2018-12-15] MEDS: ACETAMINOPHEN 325 MG TABLET (FP) PO PRN (03:34)
[2018-12-15] MEDS: chlordiazePOXIDE 5 MG CAPSULE PO SCH ×2 (05:26→10:37)
[2018-12-15] MEDS: NICOTINE POLACRILEX 2 MG GUM BUC PRN (05:27)
[2018-12-15] MEDS: NAPROXEN 375 MG TABLET (FP) PO SCH ×2 (08:11→17:05)
[2018-12-15] MEDS: PRENATAL VITAMINS W/ FOLIC ACID TABLET (FP) PO SCH (10:35)
[2018-12-15] MEDS: FLUTICASONE PROP 0.05% 16 GM NASAL SPRAY NS SCH (10:36)
[2018-12-15] MEDS: BACITRACIN 0.9 GM PACKET TP SCH (10:36)
[2018-12-15] MEDS: TOLNAFTATE 1% CREAM 15 GM TUBE TP SCH (10:37)
--- NOTE | 2018-12-15 14:31 | PN ---
BHS Progress Note (SOAP) Subjective: Pt doing well stable- states would like to go to rehab today if bed available, R elbow in flexible splint after a fall and r/o'd for fracture O: Vital Signs - 24 hr 12/14/18 12/14/18 12/15/18 17:12 21:19 07:49 Temperature 98.4 F 97 F L 97.7 F Pulse Rate 91 H 90 91 H Respiratory 18 18 18 Rate Blood Pressure 100/70 117/67 117/93 12/15/18 12/15/18 09:13 12:56 Temperature 98.1 F 98.6 F Pulse Rate 84 98 H Respiratory 18 18 Rate Blood Pressure 126/98 124/83 Laboratory Tests 12/13/18 12/13/18 12/13/18 07:00 07:00 07:00 WBC 3.3 L RBC 3.89 L Hgb 13.0 Hct 38.6 MCV 99.1 H D MCH 33.4 MCHC 33.7 RDW 15.1 D Plt Count 358 D MPV 8.1 D Sodium 138 Potassium 4.4 Chloride 102 Carbon Dioxide 29 Anion Gap 8 BUN 14 Creatinine 0.7 Creat Clearance w eGFR > 60 Random Glucose 80 Calcium 9.8 Total Bilirubin 0.8 AST 25 ALT 30 Alkaline Phosphatase 125 H Total Protein 7.6 Albumin 3.4 RPR Titer Nonreactive a/p: continue with librium detox- pt to go to rehab after librium dose at 6pm.
[2018-12-15] MEDS ORDERED: chlordiazePOXIDE HCL 10 MG CAPSULE PO SCH (17:00)
[2018-12-15 17:31] VITALS: BP 130/73; PULSE 92; TEMP 99
== END 2018-12-15 17:35 | disposition home or self-care (01) | DRG 775 ==
LOC: YASAS 09:26 → Y6N 10:48
PROVIDERS: ADMIT Surgery; ATTEND Surgery
PROC: HZ2ZZZZ Detoxification Services for Substance Abuse Treatment (ICD-10-PCS; principal; 2018-12-12)
DX: F10.230 Alcohol dependence with withdrawal, uncomplicated (principal); F17.210 Nicotine dependence, cigarettes, uncomplicated; H54.40 Blindness, one eye, unspecified eye; J44.9 Chronic obstructive pulmonary disease, unspecified; R63.6 Underweight; Z68.1 Body mass index [BMI] 19.9 or less, adult; B35.3 Tinea pedis; S50.01XD Contusion of right elbow, subsequent encounter; S90.512D Abrasion, left ankle, subsequent encounter; W19.XXXD Unspecified fall, subsequent encounter
CPT/HCPCS: 36415; 80053; 85027; 86593

== ENCOUNTER 2018-12-15 17:27 | Inpatient (IN) | payer OTHER ==
--- NOTE | 2018-12-15 18:13 | HP ---
[facility] Rehab Assess/Revision - Admission History Admitted to Rehab from: [facility] Date of Admission to Rehab: 12/15/2018 - Findings Detox History & Physical reviewed: Yes Concur with findings: Yes Comments/Additional Findings: Patient admitted with early alcohol remission. Hx. Nicotine use disorder, COPD, (R) elbow trauma, (R) eye blindness since and tinea pedis. Inpatient Rehab Admission - Rehab Decision to Admit Inpatient rehab admission?: Yes - Initial Determination Are CD services needed?: Yes Free of communicable disease: Yes Not in need of hospitalization: Yes - Rehab Admission Criteria Previous failed treatment: Yes Poor recovery environment: Yes Comorbidities: No Lacks judgement: No Patient is meeting Inpatient Rehab admission criteria:: Yes
[2018-12-15] MEDS ORDERED: MAGNESIUM CITRATE 300 ML BOTTLE PO PRN (18:18)
[2018-12-15] MEDS ORDERED: hydrOXYzine PAMOATE 50 MG CAPSULE (FP) PO PRN (18:18)
[2018-12-15] MEDS ORDERED: ACETAMINOPHEN 325 MG TABLET (FP) PO PRN (18:18)
[2018-12-15] MEDS ORDERED: LOPERAMIDE HCL 2 MG CAPSULE PO PRN (18:18)
[2018-12-15] MEDS ORDERED: MAG HYDROX/AL HYDROX/SIMETH 30 ML UNIT-DOSE CUP PO PRN (18:18)
[2018-12-15] MEDS ORDERED: NICOTINE POLACRILEX 2 MG GUM BUC PRN (18:18)
[2018-12-15] MEDS ORDERED: IBUPROFEN 400 MG TABLET (FP) PO PRN (18:18)
[2018-12-15] MEDS ORDERED: MENTHOL/PHENOL 1 EACH UD MM PRN (18:18)
[2018-12-15] MEDS ORDERED: MAGNESIUM HYDROX 2400MG/30ML ORAL SUSPENSION 30 ML CUP PO PRN (18:18)
[2018-12-15] MEDS: THIAMINE HCL 100 MG TABLET (FP) PO SCH (21:43)
[2018-12-15] MEDS: TOLNAFTATE 1% CREAM 15 GM TUBE TP SCH (21:44)
[2018-12-15] MEDS ORDERED: MELATONIN 5 MG TABLETS PO PRN (22:00)
[2018-12-16] MEDS: NAPROXEN 375 MG TABLET (FP) PO SCH ×2 (08:17→17:24)
[2018-12-16] MEDS: FLUTICASONE PROP 0.05% 16 GM NASAL SPRAY NS SCH (09:43)
[2018-12-16] MEDS: NICOTINE 21 MG/24 HOURS TOPICAL PATCH TD SCH (09:43)
[2018-12-16] MEDS: PRENATAL VITAMINS W/ FOLIC ACID TABLET (FP) PO SCH (09:43)
[2018-12-16] MEDS: TOLNAFTATE 1% CREAM 15 GM TUBE TP SCH ×2 (09:44→22:56)
[2018-12-16] MEDS: THIAMINE HCL 100 MG TABLET (FP) PO SCH (22:56)
[2018-12-17] MEDS: NAPROXEN 375 MG TABLET (FP) PO SCH ×2 (07:25→16:37)
[2018-12-17] MEDS: PRENATAL VITAMINS W/ FOLIC ACID TABLET (FP) PO SCH (10:15)
[2018-12-17] MEDS: NICOTINE 21 MG/24 HOURS TOPICAL PATCH TD SCH (10:16)
[2018-12-17] MEDS: FLUTICASONE PROP 0.05% 16 GM NASAL SPRAY NS SCH (10:16)
[2018-12-17] MEDS: TOLNAFTATE 1% CREAM 15 GM TUBE TP SCH ×2 (10:17→23:58)
--- NOTE | 2018-12-17 13:11 | PN ---
BHS Progress Note Note: PT REQUESTING SLING FOR RIGHT ELBOW. REPORTS HX OF FALL ON RIGHT HAND. RIGHT HAND WITH BANDAGE IN PLACE. ALERT O X 3. PARTICIPATING IN INIT ACTIVITIES. OOB AMBULATING WITH NO DIFFICULTY. Vital Signs (72 hours) 12/15/18 12/15/18 12/16/18 18:05 20:33 00:30 Temperature 98.3 F 98.3 F Pulse Rate 91 H 91 H Respiratory 18 18 18 Rate Blood Pressure 127/87 127/87 12/16/18 12/16/18 12/17/18 03:30 07:09 00:30 Temperature 98.3 F Pulse Rate 88 Respiratory 16 18 18 Rate Blood Pressure 123/78 12/17/18 07:01 Temperature 97.6 F Pulse Rate 87 Respiratory 18 Rate Blood Pressure 118/85 S/P RIGHT ELBOW TRUAMA ELBOW SLING OREDERED FOR PT'S USE.
[2018-12-17] MEDS: THIAMINE HCL 100 MG TABLET (FP) PO SCH (23:57)
[2018-12-18] MEDS: NAPROXEN 375 MG TABLET (FP) PO SCH ×2 (07:08→17:29)
[2018-12-18] MEDS: PRENATAL VITAMINS W/ FOLIC ACID TABLET (FP) PO SCH (09:47)
[2018-12-18] MEDS: FLUTICASONE PROP 0.05% 16 GM NASAL SPRAY NS SCH (09:47)
[2018-12-18] MEDS: NICOTINE 21 MG/24 HOURS TOPICAL PATCH TD SCH (09:47)
[2018-12-18] MEDS: TOLNAFTATE 1% CREAM 15 GM TUBE TP SCH ×2 (09:48→21:34)
[2018-12-18] MEDS: THIAMINE HCL 100 MG TABLET (FP) PO SCH (21:34)
[2018-12-19] MEDS: NAPROXEN 375 MG TABLET (FP) PO SCH (07:13)
[2018-12-19 07:39] VITALS: BP 119/87; PULSE 97; TEMP 97.9
[2018-12-19] MEDS: FLUTICASONE PROP 0.05% 16 GM NASAL SPRAY NS SCH (09:46)
[2018-12-19] MEDS: PRENATAL VITAMINS W/ FOLIC ACID TABLET (FP) PO SCH (09:47)
[2018-12-19] MEDS: TOLNAFTATE 1% CREAM 15 GM TUBE TP SCH (09:47)
[2018-12-19] MEDS: NICOTINE 21 MG/24 HOURS TOPICAL PATCH TD SCH (09:47)
--- NOTE | 2018-12-19 10:20 | PN ---
S Progress Note Note: Vital Signs Temperature 97.9 F 12/19/18 07:39 Pulse Rate 97 H 12/19/18 07:39 Respiratory Rate 18 12/19/18 07:39 Blood Pressure 119/87 12/19/18 07:39 O2 Sat by Pulse Oximetry (%) Patient reports wants to leave AMA because he feels bored and has personal manners he needs to attend to. Patient to follow up with PCP and attached outpatient referrals. Patient in stable condition.
== END 2018-12-19 10:40 | disposition left against medical advice (07) | DRG 770 ==
LOC: YASAS 17:27 → Y5N 17:28
PROVIDERS: ADMIT Neuromusculoskeletal Medicine & OMM; ATTEND Neuromusculoskeletal Medicine & OMM
PROC: HZ42ZZZ Group Counseling for Substance Abuse Treatment, Cognitive-Behavioral (ICD-10-PCS; principal; 2018-12-15)
DX: F10.20 Alcohol dependence, uncomplicated (principal); F17.210 Nicotine dependence, cigarettes, uncomplicated; H54.40 Blindness, one eye, unspecified eye; J43.9 Emphysema, unspecified; R63.6 Underweight; Z68.1 Body mass index [BMI] 19.9 or less, adult; Z87.828 Personal history of other (healed) physical injury and trauma

== ENCOUNTER 2019-01-17 10:03 | Inpatient (IN) | payer OTHER ==
[2019-01-17 11:41] VITALS: BMI 19.5
--- NOTE | 2019-01-17 12:03 | HP ---
CIWA Score Nausea/Vomitin Muscle Tremors: 2 Anxiety: 2 Agitation: 2 Paroxysmal Sweats: 1-Minimal Palms Moist Orientation: 0-Oriented Tacttile Disturbances: 1-Very Mild Itch/Numbness Auditory Disturbances: 1-Very Mild Visual Disturbances: 0-None Headache: 2-Mild CIWA-Ar Total Score: 13 - Admission Criteria OASAS Guidelines: Admission for Medically Managed Detox: Requires at least one of the followin. CIWA greater than 12 2. Seizures within the past 24 hours 3. Delirium tremens within the past 24 hours 4. Hallucinations within the past 24 hours 5. Acute intervention needed for co occurring medical disorder 6. Acute intervention needed for co occurring psychiatric disorder 7. Severe withdrawal that cannot be handled at a lower level of care (continued vomiting, continued diarrhea, abnormal vital signs) requiring intravenous medication and/or fluids 8. Admission ROS BHS - HPI Chief Complaint: i need help to stop drinking alcohol Allergies/Adverse Reactions: Allergies Allergy/AdvReac Type Severity Reaction Status Date / Time No Known Allergies Allergy Verified 12/12/18 10:00 History of Present Illness: this 53 years old male with alcohol dependence,seeking detox,withdrawal symptom, multiple admissions in detox and rehab but keep relapsing last detox [facility] 12/13/18 to 12/15/18,rehab 12/15/18 to 12/19/18 nicotine dependence 1 pack/day,requesting gumsyncope alcohol related no significant period of sobriety plan fo rehab after detox weight loss Exam Limitations: No Limitations - Ebola screening Have you traveled outside of the country in the last 21 days: No Have you had contact with anyone from an Ebola affected area: No Do you have a fever: No - Review of Systems Constitutional: Loss of Appetite, Malaise, Night Sweats, Changes in sleep, Weakness, Unintentional Wgt. Loss EENT: reports: Nose Congestion Respiratory: reports: No Symptoms reported Cardiac: reports: No Symptoms Reported GI: reports: Nausea, Poor Appetite, Abdominal cramping : reports: No Symptoms Reported Musculoskeletal: reports: Back Pain, Muscle Pain Integumentary: reports: Dryness Neuro: reports: Headache, Tremors Endocrine: reports: No Symptoms Reported Hematology: reports: No Symptoms Reported Psychiatric: reports: No Sypmtoms Reported, Judgement Intact, Mood/Affect Appropiate, Orientated x3 Other Systems: Reviewed and Negative Patient History - Patient Medical History Hx Anemia: No Hx Asthma: No Hx Chronic Obstructive Pulmonary Disease (COPD): Yes (no medication) Hx Cancer: No Hx Cardiac Disorders: No Hx Congestive Heart Failure: No Hx Hypertension: No Hx Hypercholesterolemia: No Hx Pacemaker: No HX Cerebrovascular Accident: No Hx Seizures: No Hx Dementia: No Hx Diabetes: No Hx Gastrointestinal Disorders: No Hx Liver Disease: No Hx Genitourinary Disorders: No Hx Sexually Transmitted Disorders: No Hx Renal Disease (ESRD): No Hx Thyroid Disease: No Hx Human Immunodeficiency Virus (HIV): No (last 2018 negative) Hx Hepatitis C: No Hx Depression: Yes (no med) Hx Suicide Attempt: No Hx Bipolar Disorder: No Hx Schizophrenia: No Other Medical History: no suicidal,no homicidal - Patient Surgical History Past Surgical History: Yes Hx Neurologic Surgery: No Hx Cataract Extraction: No Hx Cardiac Surgery: No Hx Lung Surgery: No Hx Breast Surgery: No Hx Breast Biopsy: No Hx Abdominal Surgery: No Hx Appendectomy: No Hx Cholecystectomy: No Hx Genitourinary Surgery: No Hx Section: No Hx Orthopedic Surgery: Yes (left ankle with ORIF due to fracture) Anesthesia Reaction: No - PPD History Previous Implant?: Yes Documented Results: Negative w/proof Implanted On Prior R Admission?: Yes Date: 06/21/18 Results: 0 MM PPD to be Administered?: No - Smoking Cessation Smoking history: Current every day smoker Have you smoked in the past 12 months: Yes Aproximately how many cigarettes per day: 20 Cigars Per Day: 20 Hx Chewing Tobacco Use: No Initiated information on smoking cessation: Yes 'Breaking Loose' booklet given: 01/17/19 - Substance & Tx. History Hx Alcohol Use: Yes Hx Substance Use: No Substance Use Type: Alcohol Hx Substance Use Treatment: Yes ([facility] 12/12/18 to ,rehab 12/15/18 to 07/30) - Substances abused Alcohol Substance route: Oral Frequency: Daily Amount used: 5 of 40 ozs of beer Age of first use: 18 Date of last use: 01/16/19 Family Disease History - Family Disease History Family Disease History: Heart Disease: Father (, alcohol), Mother ( , alcohol), Other: Father, Mother, Brother (one - living ), Sister (two living) Admission Physical Exam BHS - Vital Signs Vital Signs: Vital Signs - 24 hr 01/17/19 11:35 Temperature 100.4 F H Pulse Rate 75 Respiratory 18 Rate Blood Pressure 122/70 - Physical General Appearance: Yes: Moderate Distress, Tremorous, Irritable, Sweating, Anxious HEENTM: Yes: Normal ENT Inspection, DISHA, Pharynx Normal Respiratory: Yes: Lungs Clear, Normal Breath Sounds, No Respiratory Distress Neck: Yes: Within Normal Limits, Supple, Trachea in good position Breast: Yes: Within Normal Limits Cardiology: Yes: Within Normal Limits, Regular Rhythm, Regular Rate, S1, S2 Abdominal: Yes: Within Normal Limits, Normal Bowel Sounds, Non Tender, Flat, Soft Genitourinary: Yes: Within Normal Limits Back: Yes: Muscle Spasm Musculoskeletal: Yes: full range of Motion, Back pain, Muscle Pain Extremities: Yes: Within Normal Limits, Normal Range of Motion, Tremors Neurological: Yes: Within Normal Limits, currency counter II-XII NML intact, Fully Oriented, Alert, Motor Strength 5/5 Integumentary: Yes: Dry Lymphatic: Yes: Within Normal Limits - Diagnostic (1) syncope alcohol related Current Visit: No Status: Active (2) Alcohol dependence with uncomplicated withdrawal Current Visit: No Status: Chronic (3) Blind right eye Current Visit: No Status: Chronic (4) Nicotine dependence Current Visit: No Status: Chronic Qualifiers: Nicotine product type: cigarettes Substance use status: uncomplicated Qualified Code(s): F17.210 - Nicotine dependence, cigarettes, uncomplicated (5) Underweight Current Visit: No Status: Chronic (6) mental retardation nos Current Visit: No Status: Chronic Cleared for Admission [facility] - Detox or Rehab [facility] Level of Care: Medically Managed Detox Regimen/Protocol: Librium Breathalyzer - Breathalyzer Breathalyzer: 0.094 Urine Drug Screen - Test Device Lot number: [id number] Expiration date: 09/10/20 - Control Is test valid?: Yes - Results Drug screen NEGATIVE: No Urine drug screen results: BZO-Benzodiazepines Inpatient Rehab Admission - Rehab Decision to Admit Inpatient rehab admission?: No
[2019-01-17] MEDS ORDERED: MAG HYDROX/AL HYDROX/SIMETH 30 ML UNIT-DOSE CUP PO PRN (12:10)
[2019-01-17] MEDS ORDERED: BISMUTH SUBSALICYLATE 524 MG/30 ML UD PO PRN (12:10)
[2019-01-17] MEDS ORDERED: MELATONIN 5 MG TABLETS PO PRN (12:10)
[2019-01-17] MEDS ORDERED: ACETAMINOPHEN 325 MG TABLET (FP) PO PRN ×2 (12:10)
[2019-01-17] MEDS ORDERED: chlordiazePOXIDE HCL 25 MG CAPSULE PO PRN (12:10)
[2019-01-17] MEDS ORDERED: hydrOXYzine PAMOATE 25 MG CAPSULE (FP) PO PRN (12:10)
[2019-01-17] MEDS ORDERED: IBUPROFEN 400 MG TABLET (FP) PO PRN (12:10)
[2019-01-17] MEDS ORDERED: MAGNESIUM CITRATE 300 ML BOTTLE PO PRN (12:10)
[2019-01-17] MEDS ORDERED: METHOCARBAMOL 500 MG TABLET PO PRN (12:10)
[2019-01-17] MEDS ORDERED: MENTHOL/PHENOL 1 EACH UD MM PRN (12:10)
[2019-01-17] MEDS ORDERED: MAGNESIUM HYDROX 2400MG/30ML ORAL SUSPENSION 30 ML CUP PO PRN (12:10)
[2019-01-17 15:23] LABS: HEMATOCRIT 37.7 % (35.4-49); HEMOGLOBIN 12.5 GM/dL (11.7-16.9); MCH 32.1 pg (25.7-33.7); MCHC 33.2 g/dl (32.0-35.9); MEAN CELL VOLUME 96.7 fl (80-96); MEAN PLT VOLUME 8.9 fl (7.5-11.1); PLATELET COUNT 94 K/MM3 (134-434); RDW 16.5 % (11.9-15.9); WHITE BLOOD COUNT 2.3 K/mm3 (4.0-10.0)
[2019-01-17 15:35] LABS: ALK PHOS 147 U/L (45-117); ANION GAP 12 MMOL/L (8-16); BILIRUBIN,TOTAL 0.6 mg/dL (0.2-1); BLOOD UREA NITROGEN 7 mg/dL (7-18); CALCIUM 8.7 mg/dL (8.5-10.1); CHLORIDE 99 mmol/L (98-107); CO2 24 mmol/L (21-32); CREATININE 0.8 mg/dL (0.55-1.3); GLUCOSE,RANDOM 93 mg/dL (74-106); POTASSIUM 4.1 mmol/L (3.5-5.1); SGOT/AST 66 U/L (15-37); SGPT/ALT 35 U/L (13-61); SODIUM 135 mmol/L (136-145); TOT PROT 7.8 g/dl (6.4-8.2)
[2019-01-17] MEDS: chlordiazePOXIDE HCL 25 MG CAPSULE PO SCH ×2 (18:05→21:59)
[2019-01-17] MEDS: THIAMINE HCL 100 MG TABLET (FP) PO SCH (21:59)
[2019-01-18] MEDS: chlordiazePOXIDE HCL 25 MG CAPSULE PO SCH ×4 (06:31→23:49)
--- NOTE | 2019-01-18 10:13 | PN ---
S CIWA - CIWA Score Nausea/Vomitin Muscle Tremors: 2 Anxiety: 2 Agitation: 2 Paroxysmal Sweats: 1-Minimal Palms Moist Orientation: 0-Oriented Tacttile Disturbances: 1-Very Mild Itch/Numbness Auditory Disturbances: 1-Very Mild Visual Disturbances: 0-None Headache: 2-Mild CIWA-Ar Total Score: 13 BHS Progress Note (SOAP) Subjective: alert,irritable,anxious,interrupted sleep,tremor Objective: 01/18/19 10:10 Vital Signs Temperature 99.5 F 01/18/19 09:35 Pulse Rate 124 H 01/18/19 09:35 Respiratory Rate 20 01/18/19 09:35 Blood Pressure 119/65 01/18/19 09:35 O2 Sat by Pulse Oximetry (%) Vital Signs Temperature 99.5 F 01/18/19 09:35 Pulse Rate 124 H 01/18/19 09:35 Respiratory Rate 20 01/18/19 09:35 Blood Pressure 119/65 01/18/19 09:35 O2 Sat by Pulse Oximetry (%) Laboratory Last Values WBC 2.3 K/mm3 (4.0-10.0) L 01/17/19 12:15 RBC 3.90 M/mm3 (4.00-5.60) L 01/17/19 12:15 Hgb 12.5 GM/dL (11.7-16.9) 01/17/19 12:15 Hct 37.7 % (35.4-49) 01/17/19 12:15 MCV 96.7 fl (80-96) H 01/17/19 12:15 MCH 32.1 pg (25.7-33.7) 01/17/19 12:15 MCHC 33.2 g/dl (32.0-35.9) 01/17/19 12:15 RDW 16.5 % (11.9-15.9) H 01/17/19 12:15 Plt Count 94 K/MM3 (134-434) L D 01/17/19 12:15 MPV 8.9 fl (7.5-11.1) 01/17/19 12:15 Sodium 135 mmol/L (136-145) L 01/17/19 12:15 Potassium 4.1 mmol/L (3.5-5.1) 01/17/19 12:15 Chloride 99 mmol/L (98-107) 01/17/19 12:15 Carbon Dioxide 24 mmol/L (21-32) 01/17/19 12:15 Anion Gap 12 MMOL/L (8-16) 01/17/19 12:15 BUN 7 mg/dL (7-18) 01/17/19 12:15 Creatinine 0.8 mg/dL (0.55-1.3) 01/17/19 12:15 Creat Clearance w eGFR 101.12 (>60) 01/17/19 12:15 Random Glucose 93 mg/dL (74-106) 01/17/19 12:15 Calcium 8.7 mg/dL (8.5-10.1) 01/17/19 12:15 Total Bilirubin 0.6 mg/dL (0.2-1) 01/17/19 12:15 AST 66 U/L (15-37) H 01/17/19 12:15 ALT 35 U/L (13-61) 01/17/19 12:15 Alkaline Phosphatase 147 U/L (45-117) H 01/17/19 12:15 Total Protein 7.8 g/dl (6.4-8.2) 01/17/19 12:15 Albumin 4.0 g/dl (3.4-5.0) 01/17/19 12:15 RPR Titer Nonreactive (NONREACTIVE) 01/17/19 12:15 HIV 1&2 Antibody Screen Negative 01/17/19 12:45 HIV P24 Antigen Negative 01/17/19 12:45 Assessment: 01/18/19 10:12 withdrawal symptom Plan: continue detox,nasal congestion,wbc 2300,leukopenia,repeat cbc in am
[2019-01-18] MEDS: PRENATAL VITAMINS W/ FOLIC ACID TABLET (FP) PO SCH (10:21)
[2019-01-18] MEDS: FLUTICASONE PROP 0.05% 16 GM NASAL SPRAY NS SCH ×2 (10:34→23:48)
[2019-01-18 11:19] LABS: EPI CELLS 1.5 /HPF (0-5); PH,URINE 5.5 (5.0-8.0); URINE APPEARANCE CLEAR; URINE BACTERIA 18.8 /hpf (NEGATIVE); URINE BILIRUBIN 1+ (NEGATIVE); URINE CASTS 5 /hpf (0-8); URINE GLUCOSE (UA) NEGATIVE (NEGATIVE); URINE KETONE TRACE (NEGATIVE); URINE LEUK ESTERASE TRACE (NEGATIVE); URINE NITRITE POSITIVE (NEGATIVE); URINE PROTEIN NEGATIVE (NEGATIVE); URINE RBC 3 /hpf (0-4); URINE WBC 4 /hpf (0-5)
[2019-01-18 11:24] LABS: URINE COLOR DK YELLOW
[2019-01-18] MEDS ORDERED: hydrOXYzine HCL 25 MG TABLET (FP) PO PRN (18:36)
[2019-01-18] MEDS: THIAMINE HCL 100 MG TABLET (FP) PO SCH (23:49)
[2019-01-19] MEDS: chlordiazePOXIDE HCL 25 MG CAPSULE PO SCH ×2 (06:09→10:05)
[2019-01-19] MEDS: PRENATAL VITAMINS W/ FOLIC ACID TABLET (FP) PO SCH (10:05)
[2019-01-19] MEDS: FLUTICASONE PROP 0.05% 16 GM NASAL SPRAY NS SCH ×2 (10:05→22:37)
[2019-01-19 10:09] LABS: HEMATOCRIT 36.5 % (35.4-49); HEMOGLOBIN 12.4 GM/dL (11.7-16.9); MCH 33.2 pg (25.7-33.7); MCHC 33.9 g/dl (32.0-35.9); MEAN PLT VOLUME 10.5 fl (7.5-11.1); RBC 3.73 M/mm3 (4.00-5.60); RDW 16.3 % (11.9-15.9); WHITE BLOOD COUNT 2.7 K/mm3 (4.0-10.0)
[2019-01-19 10:11] LABS: PLATELET COUNT 68 K/MM3 (134-434)
--- NOTE | 2019-01-19 14:08 | PN ---
[facility] CIWA - CIWA Score Nausea/Vomitin-No Nausea/No Vomiting Muscle Tremors: 1-None Visible, but [place] Anxiety: 0-No Anxiety, at Ease Agitation: 0-Normal Activity Paroxysmal Sweats: No Perspiration Orientation: 0-Oriented Tacttile Disturbances: 0-None Auditory Disturbances: 0-None Visual Disturbances: 0-None Headache: 0-None Present CIWA-Ar Total Score: 1 BHS Progress Note (SOAP) Subjective: pt states he has some diarrhea- helped with pepto bismol O: Vital Signs - 24 hr 01/18/19 01/18/19 01/19/19 17:16 21:48 00:30 Temperature 97.9 F 98.1 F Pulse Rate 91 H 80 Respiratory 18 18 18 Rate Blood Pressure 126/76 107/76 01/19/19 01/19/19 01/19/19 03:30 07:01 09:23 Temperature 98.1 F 98.8 F Pulse Rate 86 95 H Respiratory 18 18 18 Rate Blood Pressure 117/75 138/72 01/19/19 13:44 Temperature 98.4 F Pulse Rate 96 H Respiratory 18 Rate Blood Pressure 122/72 Laboratory Tests 01/17/19 01/17/19 01/17/19 12:15 12:15 12:15 WBC 2.3 L RBC 3.90 L Hgb 12.5 Hct 37.7 MCV 96.7 H MCH 32.1 MCHC 33.2 RDW 16.5 H Plt Count 94 L D MPV 8.9 Sodium 135 L Potassium 4.1 Chloride 99 Carbon Dioxide 24 Anion Gap 12 BUN 7 Creatinine 0.8 Creat Clearance w eGFR 101.12 Random Glucose 93 Calcium 8.7 Total Bilirubin 0.6 AST 66 H ALT 35 Alkaline Phosphatase 147 H Total Protein 7.8 Albumin 4.0 Urine Color Urine Appearance Urine pH Ur Specific Alexis Urine Protein Urine Glucose (UA) Urine Ketones Urine Blood Urine Nitrite Urine Bilirubin Urine Urobilinogen Ur Leukocyte Esterase Urine WBC (Auto) Urine RBC (Auto) Urine Casts (Auto) U Epithel Cells (Auto) Urine Bacteria (Auto) RPR Titer Nonreactive HIV 1&2 Antibody Screen HIV P24 Antigen 01/17/19 01/18/19 01/19/19 12:45 05:58 06:00 WBC 2.7 L RBC 3.73 L Hgb 12.4 Hct 36.5 MCV 98.0 H MCH 33.2 MCHC 33.9 RDW 16.3 H Plt Count 68 L D MPV 10.5 D Sodium Potassium Chloride Carbon Dioxide Anion Gap BUN Creatinine Creat Clearance w eGFR Random Glucose Calcium Total Bilirubin AST ALT Alkaline Phosphatase Total Protein Albumin Urine Color Dk yellow Urine Appearance Clear Urine pH 5.5 Ur Specific Alexis 1.024 Urine Protein Negative Urine Glucose (UA) Negative Urine Ketones Trace H Urine Blood Negative Urine Nitrite Positive H Urine Bilirubin 1+ H Urine Urobilinogen 1.0 Ur Leukocyte Esterase Trace Urine WBC (Auto) 4 Urine RBC (Auto) 3 Urine Casts (Auto) 5 U Epithel Cells (Auto) 1.5 Urine Bacteria (Auto) 18.8 RPR Titer HIV 1&2 Antibody Screen Negative HIV P24 Antigen Negative a/p: continue alcohol detox protocol- pt doing well plt count better 94
[2019-01-19] MEDS ORDERED: chlordiazePOXIDE HCL 10 MG CAPSULE PO PRN (17:00)
[2019-01-19] MEDS: chlordiazePOXIDE HCL 10 MG CAPSULE PO SCH ×2 (17:21→22:16)
[2019-01-19] MEDS: NICOTINE POLACRILEX 2 MG GUM BUC PRN ×2 (17:24→22:16)
[2019-01-19] MEDS: THIAMINE HCL 100 MG TABLET (FP) PO SCH (22:16)
[2019-01-20] MEDS: chlordiazePOXIDE HCL 10 MG CAPSULE PO SCH ×3 (05:28→17:26)
[2019-01-20] MEDS: NICOTINE POLACRILEX 2 MG GUM BUC PRN (05:30)
--- NOTE | 2019-01-20 10:05 | PN ---
S Progress Note (SOAP) Subjective: alert,irritable,anxious,interrupted sleep Objective: 01/20/19 10:03 Vital Signs Temperature 98.1 F 01/20/19 09:04 Pulse Rate 105 H 01/20/19 09:04 Respiratory Rate 18 01/20/19 09:04 Blood Pressure 119/86 01/20/19 09:04 O2 Sat by Pulse Oximetry (%) 01/20/19 10:04 Abnormal Lab Results 01/19/19 06:00 WBC 2.7 L RBC 3.73 L MCV 98.0 H RDW 16.3 H Plt Count 68 L D 01/20/19 10:04 leucopenia 01/20/19 10:05 Assessment: 01/20/19 10:03 withdrawal symptom Plan: continue detox,discharge in am
[2019-01-20] MEDS: PRENATAL VITAMINS W/ FOLIC ACID TABLET (FP) PO SCH (10:18)
[2019-01-20] MEDS: FLUTICASONE PROP 0.05% 16 GM NASAL SPRAY NS SCH (10:18)
[2019-01-21] MEDS: FLUTICASONE PROP 0.05% 16 GM NASAL SPRAY NS SCH ×2 (00:15→11:05)
[2019-01-21] MEDS: THIAMINE HCL 100 MG TABLET (FP) PO SCH (00:15)
[2019-01-21] MEDS: chlordiazePOXIDE HCL 10 MG CAPSULE PO SCH (05:22)
--- NOTE | 2019-01-21 09:01 | DS ---
[facility] Detox Discharge Summary Admission Date: 01/17/19 Discharge Date: 01/21/19 - History Present History: Cannabis Dependence - Physical Exam Results Vital Signs: Vital Signs Temperature 97.3 F L 01/21/19 06:00 Pulse Rate 86 01/21/19 06:00 Respiratory Rate 18 01/21/19 06:00 Blood Pressure 121/72 01/21/19 06:00 O2 Sat by Pulse Oximetry (%) - Treatment Hospital Course: Detox Protocol Followed, Detoxed Safely, Responded well, Discharged Condition Good, Rehab Referral Accepted - Medication Discharge Medications: Ambulatory Orders NK [No Known Home Medication] 11/27/13 - Diagnosis (1) alcohol induced mood disorder Current Visit: No Status: Active (2) depression Current Visit: No Status: Active (3) syncope alcohol related Current Visit: No Status: Active (4) Abrasion of left ankle Current Visit: No Status: Acute (5) Cannabis abuse Current Visit: Yes Status: Chronic (6) Cellulitis of heel, left Current Visit: No Status: Acute (7) Contusion of right elbow Current Visit: No Status: Acute (8) Dry skin dermatitis Current Visit: No Status: Acute (9) Substance induced mood disorder Current Visit: No Status: Acute (10) Alcohol dependence with uncomplicated withdrawal Current Visit: Yes Status: Chronic (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: Chronic (12) COPD (chronic obstructive pulmonary disease) Current Visit: No Status: Chronic Qualifiers: COPD type: emphysema (13) Exotropia, right eye Current Visit: No Status: Chronic (14) History of seizure Current Visit: No Status: Chronic (15) Nicotine dependence Current Visit: Yes Status: Chronic Qualifiers: Nicotine product type: cigarettes Substance use status: uncomplicated Qualified Code(s): F17.210 - Nicotine dependence, cigarettes, uncomplicated (16) Underweight Current Visit: No Status: Chronic (17) mental retardation nos Current Visit: No Status: Chronic (18) Alcohol related seizure Current Visit: No Status: Suspected - AMA Did Patient Leave Against Medical Advice: No (referred to [facility] rehab.)
[2019-01-21 09:18] VITALS: BP 126/64; PULSE 87; TEMP 98.1
[2019-01-21] MEDS: PRENATAL VITAMINS W/ FOLIC ACID TABLET (FP) PO SCH (11:03)
== END 2019-01-21 11:15 | disposition home or self-care (01) | DRG 775 ==
LOC: YASAS 10:03 → Y6N 12:48
PROVIDERS: ADMIT Surgery; ATTEND Surgery
PROC: HZ2ZZZZ Detoxification Services for Substance Abuse Treatment (ICD-10-PCS; principal; 2019-01-17)
DX: F10.230 Alcohol dependence with withdrawal, uncomplicated (principal); F10.24 Alcohol dependence with alcohol-induced mood disorder; F12.10 Cannabis abuse, uncomplicated; F17.210 Nicotine dependence, cigarettes, uncomplicated; F32.9 Major depressive disorder, single episode, unspecified; F19.24 Other psychoactive substance dependence with psychoactive substance-induced mood disorder; F78 Other intellectual disabilities; D72.819 Decreased white blood cell count, unspecified; H54.40 Blindness, one eye, unspecified eye; L03.116 Cellulitis of left lower limb; L85.3 Xerosis cutis; J44.9 Chronic obstructive pulmonary disease, unspecified; R63.6 Underweight; Z68.1 Body mass index [BMI] 19.9 or less, adult
CPT/HCPCS: 36415; 80053; 81003; 85027; 86593; 87389

== ENCOUNTER 2019-11-07 21:14 | Inpatient (IN) | payer OTHER ==
[2019-11-07 22:51] VITALS: BMI 19.5
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
[2019-11-07] MEDS ORDERED: METHOCARBAMOL 500 MG TABLET PO PRN (23:53)
[2019-11-07] MEDS ORDERED: ACETAMINOPHEN 325 MG TABLET (FP) PO PRN ×2 (23:53)
[2019-11-07] MEDS ORDERED: chlordiazePOXIDE HCL 25 MG CAPSULE PO PRN (23:53)
[2019-11-07] MEDS ORDERED: hydrOXYzine PAMOATE 25 MG CAPSULE (FP) PO PRN (23:53)
[2019-11-07] MEDS ORDERED: MAGNESIUM HYDROX 2400MG/30ML ORAL SUSPENSION 30 ML CUP PO PRN (23:53)
[2019-11-07] MEDS ORDERED: MELATONIN 5 MG TABLETS PO PRN (23:53)
[2019-11-07] MEDS ORDERED: IBUPROFEN 400 MG TABLET (FP) PO PRN (23:53)
[2019-11-07] MEDS ORDERED: BISMUTH SUBSALICYLATE 524 MG/30 ML UD PO PRN (23:53)
[2019-11-07] MEDS ORDERED: MAGNESIUM CITRATE 300 ML BOTTLE PO PRN (23:53)
[2019-11-07] MEDS ORDERED: MENTHOL/PHENOL 1 EACH UD MM PRN (23:53)
[2019-11-07] MEDS ORDERED: MAG HYDROX/AL HYDROX/SIMETH 30 ML UNIT-DOSE CUP PO PRN (23:53)
[2019-11-08] MEDS: chlordiazePOXIDE HCL 25 MG CAPSULE PO SCH ×5 (00:41→22:03)
--- NOTE | 2019-11-08 09:35 | PN ---
S CIWA - CIWA Score Nausea/Vomitin-No Nausea/No Vomiting Muscle Tremors: 3 Anxiety: 4-Mod. Anxious/Guarded Agitation: 1-Slight > Activity Paroxysmal Sweats: 2 Orientation: 0-Oriented Tacttile Disturbances: 0-None Auditory Disturbances: 0-None Visual Disturbances: 1-Very Mild Sensitivity Headache: 1-Very Mild CIWA-Ar Total Score: 12 BHS Progress Note (SOAP) Subjective: 53 years old male admitted on 11/07/19 for alcohol withdrawal sx management treating with librium detox regimen feeling ok today ate breakfast in day room with peers encourage the patient to attend behavior and psychosocial therapies groups and meetings while in detox Objective: 11/08/19 09:37 Vital Signs Temperature 97.5 F L 11/08/19 09:11 Pulse Rate 108 H 11/08/19 09:11 Respiratory Rate 16 11/08/19 09:11 Blood Pressure 124/72 11/08/19 09:11 O2 Sat by Pulse Oximetry (%) 11/08/19 09:37 lab pending Assessment: 11/08/19 09:38 alcohol withdrawal Plan: librium regiment
[2019-11-08] MEDS: NICOTINE 21 MG/24 HOURS TOPICAL PATCH TD SCH (10:02)
[2019-11-08] MEDS: PRENATAL VITAMINS W/ FOLIC ACID TABLET (FP) PO SCH (10:02)
[2019-11-08] MEDS: NICOTINE POLACRILEX 2 MG GUM BUC PRN ×3 (10:04→22:03)
[2019-11-08 10:58] LABS: ALBUMIN 3.6 g/dl (3.4-5.0); BILIRUBIN,TOTAL 1.8 mg/dL (0.2-1); CALCIUM 9.6 mg/dL (8.5-10.1); CREATININE 0.8 mg/dL (0.55-1.3); POTASSIUM 3.9 mmol/L (3.5-5.1)
[2019-11-08 11:24] LABS: HEMATOCRIT 40.4 % (35.4-49); HEMOGLOBIN 13.5 GM/dL (11.7-16.9); MCH 34.1 pg (25.7-33.7); MCHC 33.4 g/dl (32.0-35.9); MEAN CELL VOLUME 102.2 fl (80-96); MEAN PLT VOLUME 10.4 fl (7.5-11.1); PLATELET COUNT 164 K/MM3 (134-434); RBC 3.95 M/mm3 (4.00-5.60); RDW 16.5 % (11.9-15.9); WHITE BLOOD COUNT 2.4 K/mm3 (4.0-10.0)
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
--- NOTE | 2019-11-08 15:14 | EKG ---
Test Reason : Blood Pressure : / mmHG Vent. Rate : 067 BPM Atrial Rate : 067 BPM P-R Int : 168 ms QRS Dur : 114 ms QT Int : 402 ms P-R-T Axes : 066 -24 051 degrees QTc Int : 424 ms NORMAL SINUS RHYTHM NORMAL ECG WHEN COMPARED WITH ECG OF 19-JUN-2018 12:08, NO SIGNIFICANT CHANGE WAS FOUND Confirmed by Dino Sandoval MD ([id number]) on 11/08/2019 3:14:18 PM Referred By: Edenilson Campa Confirmed By:Dino Sandoval MD
[2019-11-08] MEDS: THIAMINE HCL 100 MG TABLET (FP) PO SCH (22:03)
[2019-11-09] MEDS: chlordiazePOXIDE HCL 25 MG CAPSULE PO SCH ×2 (05:35→10:01)
[2019-11-09] MEDS: NICOTINE POLACRILEX 2 MG GUM BUC PRN (05:35)
--- NOTE | 2019-11-09 09:54 | PN ---
S CIWA - CIWA Score Nausea/Vomitin-No Nausea/No Vomiting Muscle Tremors: 2 Anxiety: 2 Agitation: 1-Slight > Activity Paroxysmal Sweats: 2 Orientation: 0-Oriented Tacttile Disturbances: 0-None Auditory Disturbances: 0-None Visual Disturbances: 0-None Headache: 1-Very Mild CIWA-Ar Total Score: 8 BHS Progress Note (SOAP) Subjective: 53 years old male admitted on 11/07/19 for alcohol withdrawal sx management treating with librium detox regiment patient is doing well today ambulating on hallway social with peers in day room right inner forearm old scared superficial skin abrasion with mild redness bacitracine ointment Objective: 11/09/19 09:55 Vital Signs Temperature 97.7 F 11/09/19 08:18 Pulse Rate 86 11/09/19 08:18 Respiratory Rate 18 11/09/19 08:18 Blood Pressure 117/81 11/09/19 08:18 O2 Sat by Pulse Oximetry (%) Laboratory Last Values WBC 2.4 K/mm3 (4.0-10.0) L 11/08/19 07:45 RBC 3.95 M/mm3 (4.00-5.60) L 11/08/19 07:45 Hgb 13.5 GM/dL (11.7-16.9) 11/08/19 07:45 Hct 40.4 % (35.4-49) 11/08/19 07:45 MCV 102.2 fl (80-96) H 11/08/19 07:45 MCH 34.1 pg (25.7-33.7) H 11/08/19 07:45 MCHC 33.4 g/dl (32.0-35.9) 11/08/19 07:45 RDW 16.5 % (11.9-15.9) H 11/08/19 07:45 Plt Count 164 K/MM3 (134-434) D 11/08/19 07:45 MPV 10.4 fl (7.5-11.1) 11/08/19 07:45 Sodium 136 mmol/L (136-145) 11/08/19 07:45 Potassium 3.9 mmol/L (3.5-5.1) 11/08/19 07:45 Chloride 97 mmol/L (98-107) L 11/08/19 07:45 Carbon Dioxide 30 mmol/L (21-32) 11/08/19 07:45 Anion Gap 10 MMOL/L (8-16) 11/08/19 07:45 BUN 10.0 mg/dL (7-18) 11/08/19 07:45 Creatinine 0.8 mg/dL (0.55-1.3) 11/08/19 07:45 Est GFR (CKD-EPI)AfAm 118.20 11/08/19 07:45 Est GFR (CKD-EPI)NonAf 101.99 11/08/19 07:45 Random Glucose 138 mg/dL (74-106) H 11/08/19 07:45 Calcium 9.6 mg/dL (8.5-10.1) 11/08/19 07:45 Total Bilirubin 1.8 mg/dL (0.2-1) H 11/08/19 07:45 AST 157 U/L (15-37) H 11/08/19 07:45 ALT 108 U/L (13-61) H 11/08/19 07:45 Alkaline Phosphatase 400 U/L (45-117) H 11/08/19 07:45 Total Protein 8.0 g/dl (6.4-8.2) 11/08/19 07:45 Albumin 3.6 g/dl (3.4-5.0) 11/08/19 07:45 RPR Titer Nonreactive (NONREACTIVE) 11/08/19 07:45 lab noted 11/09/19 09:56 long history of low wbc patient is asymptomatic ast elevation repeat ast possible alcohol induced ast elevation encourage ativan detox regimen 11/09/19 09:58 Assessment: 11/09/19 09:59 alcohol withdrawal Plan: librium regiment possible ativan regiment if patient agrees
[2019-11-09] MEDS: PRENATAL VITAMINS W/ FOLIC ACID TABLET (FP) PO SCH (10:00)
[2019-11-09] MEDS: NICOTINE 21 MG/24 HOURS TOPICAL PATCH TD SCH (10:02)
[2019-11-09] MEDS: LORazepam 0.5 MG TABLET PO SCH ×2 (12:36→15:02)
[2019-11-09] MEDS: BACITRACIN 0.9 GM PACKET TP SCH ×2 (14:35→22:03)
[2019-11-09] MEDS: THIAMINE HCL 100 MG TABLET (FP) PO SCH (22:03)
[2019-11-10] MEDS ORDERED: chlordiazePOXIDE HCL 10 MG CAPSULE PO PRN
[2019-11-10] MEDS ORDERED: chlordiazePOXIDE HCL 10 MG CAPSULE PO SCH (05:00)
[2019-11-10] MEDS: BACITRACIN 0.9 GM PACKET TP SCH ×3 (05:50→22:14)
[2019-11-10] MEDS: LORazepam 0.5 MG TABLET PO SCH ×3 (05:50→22:13)
[2019-11-10] MEDS: LORazepam 1 MG TABLET PO PRN ×2 (08:28→17:54)
[2019-11-10] MEDS: NICOTINE POLACRILEX 2 MG GUM BUC PRN (10:03)
[2019-11-10] MEDS: PRENATAL VITAMINS W/ FOLIC ACID TABLET (FP) PO SCH (10:03)
[2019-11-10] MEDS: NICOTINE 21 MG/24 HOURS TOPICAL PATCH TD SCH (10:03)
--- NOTE | 2019-11-10 13:09 | PN ---
[facility] CIWA - CIWA Score Nausea/Vomitin-No Nausea/No Vomiting Muscle Tremors: 2 Anxiety: 1-Mildly Anxious Agitation: 0-Normal Activity Paroxysmal Sweats: 2 Orientation: 0-Oriented Tacttile Disturbances: 0-None Auditory Disturbances: 0-None Visual Disturbances: 0-None Headache: 0-None Present CIWA-Ar Total Score: 5 S Progress Note (SOAP) Subjective: 53 years old male admitted on 11/07/19 for alcohol withdrawal sx management treating with ativan detox regimen due to ast elevation repeat ast on 11/11/19 discontinue tylenal robaxin vistaril Objective: 11/10/19 13:08 Vital Signs Temperature 99.1 F 11/10/19 08:41 Pulse Rate 79 11/10/19 08:41 Respiratory Rate 18 11/10/19 08:41 Blood Pressure 104/70 11/10/19 08:41 O2 Sat by Pulse Oximetry (%) Laboratory Last Values WBC 2.4 K/mm3 (4.0-10.0) L 11/08/19 07:45 RBC 3.95 M/mm3 (4.00-5.60) L 11/08/19 07:45 Hgb 13.5 GM/dL (11.7-16.9) 11/08/19 07:45 Hct 40.4 % (35.4-49) 11/08/19 07:45 MCV 102.2 fl (80-96) H 11/08/19 07:45 MCH 34.1 pg (25.7-33.7) H 11/08/19 07:45 MCHC 33.4 g/dl (32.0-35.9) 11/08/19 07:45 RDW 16.5 % (11.9-15.9) H 11/08/19 07:45 Plt Count 164 K/MM3 (134-434) D 11/08/19 07:45 MPV 10.4 fl (7.5-11.1) 11/08/19 07:45 Sodium 136 mmol/L (136-145) 11/08/19 07:45 Potassium 3.9 mmol/L (3.5-5.1) 11/08/19 07:45 Chloride 97 mmol/L (98-107) L 11/08/19 07:45 Carbon Dioxide 30 mmol/L (21-32) 11/08/19 07:45 Anion Gap 10 MMOL/L (8-16) 11/08/19 07:45 BUN 10.0 mg/dL (7-18) 11/08/19 07:45 Creatinine 0.8 mg/dL (0.55-1.3) 11/08/19 07:45 Est GFR (CKD-EPI)AfAm 118.20 11/08/19 07:45 Est GFR (CKD-EPI)NonAf 101.99 11/08/19 07:45 Random Glucose 138 mg/dL (74-106) H 11/08/19 07:45 Calcium 9.6 mg/dL (8.5-10.1) 11/08/19 07:45 Total Bilirubin 1.8 mg/dL (0.2-1) H 11/08/19 07:45 AST 157 U/L (15-37) H 11/08/19 07:45 ALT 108 U/L (13-61) H 11/08/19 07:45 Alkaline Phosphatase 400 U/L (45-117) H 11/08/19 07:45 Total Protein 8.0 g/dl (6.4-8.2) 11/08/19 07:45 Albumin 3.6 g/dl (3.4-5.0) 11/08/19 07:45 RPR Titer Nonreactive (NONREACTIVE) 11/08/19 07:45 lab noted long history of low wbc asymptomatic ast elevation repeat tomorrow Assessment: 11/10/19 13:08 alcohol withdrawal Plan: ativan regiment
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
[2019-11-10] MEDS: THIAMINE HCL 100 MG TABLET (FP) PO SCH (22:13)
[2019-11-10] MEDS: MUPIROCIN CA 2% TOPICAL CREAM 15 GM TUBE TP SCH (23:15)
[2019-11-11] MEDS ORDERED: LORazepam 1 MG TABLET PO PRN (01:00)
[2019-11-11] MEDS ORDERED: chlordiazePOXIDE HCL 10 MG CAPSULE PO SCH (05:00)
[2019-11-11] MEDS: LORazepam 0.5 MG TABLET PO SCH ×2 (06:00→10:09)
[2019-11-11] MEDS: BACITRACIN 0.9 GM PACKET TP SCH ×3 (06:01→21:56)
[2019-11-11] MEDS: MUPIROCIN CA 2% TOPICAL CREAM 15 GM TUBE TP SCH ×3 (06:02→21:56)
[2019-11-11] MEDS: PRENATAL VITAMINS W/ FOLIC ACID TABLET (FP) PO SCH (09:56)
[2019-11-11] MEDS: NICOTINE 21 MG/24 HOURS TOPICAL PATCH TD SCH (09:56)
[2019-11-11] MEDS ORDERED: TETANUS AND DIPHTHERIA TOXOID 0.5 ML DISP.SYRIN IM ONE (12:00)
--- NOTE | 2019-11-11 12:34 | PN ---
S CIWA - CIWA Score Nausea/Vomitin-No Nausea/No Vomiting Muscle Tremors: 2 Anxiety: 2 Agitation: 1-Slight > Activity Paroxysmal Sweats: 2 Orientation: 1-Uncertain about Date Tacttile Disturbances: 0-None Auditory Disturbances: 0-None Visual Disturbances: 0-None Headache: 0-None Present CIWA-Ar Total Score: 8 BHS Progress Note (SOAP) Subjective: Pt points to right calf dressing, mild focal pain Objective: 11/11/19 12:31 Laboratory Last Values WBC 2.4 K/mm3 (4.0-10.0) L 11/08/19 07:45 RBC 3.95 M/mm3 (4.00-5.60) L 11/08/19 07:45 Hgb 13.5 GM/dL (11.7-16.9) 11/08/19 07:45 Hct 40.4 % (35.4-49) 11/08/19 07:45 MCV 102.2 fl (80-96) H 11/08/19 07:45 MCH 34.1 pg (25.7-33.7) H 11/08/19 07:45 MCHC 33.4 g/dl (32.0-35.9) 11/08/19 07:45 RDW 16.5 % (11.9-15.9) H 11/08/19 07:45 Plt Count 164 K/MM3 (134-434) D 11/08/19 07:45 MPV 10.4 fl (7.5-11.1) 11/08/19 07:45 Sodium 136 mmol/L (136-145) 11/08/19 07:45 Potassium 3.9 mmol/L (3.5-5.1) 11/08/19 07:45 Chloride 97 mmol/L (98-107) L 11/08/19 07:45 Carbon Dioxide 30 mmol/L (21-32) 11/08/19 07:45 Anion Gap 10 MMOL/L (8-16) 11/08/19 07:45 BUN 10.0 mg/dL (7-18) 11/08/19 07:45 Creatinine 0.8 mg/dL (0.55-1.3) 11/08/19 07:45 Est GFR (CKD-EPI)AfAm 118.20 11/08/19 07:45 Est GFR (CKD-EPI)NonAf 101.99 11/08/19 07:45 Random Glucose 138 mg/dL (74-106) H 11/08/19 07:45 Calcium 9.6 mg/dL (8.5-10.1) 11/08/19 07:45 Total Bilirubin 1.8 mg/dL (0.2-1) H 11/08/19 07:45 AST 157 U/L (15-37) H 11/08/19 07:45 ALT 108 U/L (13-61) H 11/08/19 07:45 Alkaline Phosphatase 400 U/L (45-117) H 11/08/19 07:45 Total Protein 8.0 g/dl (6.4-8.2) 11/08/19 07:45 Albumin 3.6 g/dl (3.4-5.0) 11/08/19 07:45 RPR Titer Nonreactive (NONREACTIVE) 11/08/19 07:45 Vital Signs - 24 hr 11/10/19 11/10/19 11/10/19 12:43 17:36 20:41 Temperature 98.0 F 98.8 F 97.9 F Pulse Rate 90 92 H 76 Respiratory 20 18 17 Rate Blood Pressure 110/76 107/72 102/62 11/11/19 11/11/19 11/11/19 00:30 03:30 06:53 Temperature 97.9 F Pulse Rate 88 Respiratory 18 18 18 Rate Blood Pressure 119/88 11/11/19 08:41 Temperature 96 F L Pulse Rate 90 Respiratory 20 Rate Blood Pressure 115/80 Gnl: WDWN Neck: flexed CN; mild dysarthria EENT: right exotropia MS: awake, alert, follows commands Skin: bandage right calf dry and intact 11/11/19 12:33 Assessment: 11/11/19 12:32 1. Alcohol withdrawal, uncomplicated 2. Right leg injury 3. Tobacco use Plan: 1. continue alcohol withdrawal protocol 2. bandage with bactroban as ordered 3. Nicotine replacement therapy
[2019-11-11] MEDS: THIAMINE HCL 100 MG TABLET (FP) PO SCH (21:53)
[2019-11-12] MEDS ORDERED: chlordiazePOXIDE HCL 10 MG CAPSULE PO ONE (05:00)
[2019-11-12] MEDS ORDERED: LORazepam 0.5 MG TABLET PO ONE (05:00)
[2019-11-12] MEDS: MUPIROCIN CA 2% TOPICAL CREAM 15 GM TUBE TP SCH (05:57)
[2019-11-12] MEDS: BACITRACIN 0.9 GM PACKET TP SCH (05:57)
[2019-11-12] MEDS: NICOTINE 21 MG/24 HOURS TOPICAL PATCH TD SCH (10:19)
[2019-11-12] MEDS: PRENATAL VITAMINS W/ FOLIC ACID TABLET (FP) PO SCH (10:19)
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
[2019-11-12 14:02] VITALS: BP 119/81; PULSE 98; TEMP 98.2
== END 2019-11-12 14:52 | disposition other institution (70) | DRG 775 ==
LOC: YASAS 21:14 → Y3N 11-08 00:11
PROVIDERS: ADMIT Allergy & Immunology; ATTEND Allergy & Immunology
PROC: HZ2ZZZZ Detoxification Services for Substance Abuse Treatment (ICD-10-PCS; principal; 2019-11-08)
DX: F10.230 Alcohol dependence with withdrawal, uncomplicated (principal); F12.10 Cannabis abuse, uncomplicated; F17.210 Nicotine dependence, cigarettes, uncomplicated; F19.24 Other psychoactive substance dependence with psychoactive substance-induced mood disorder; F32.9 Major depressive disorder, single episode, unspecified; J44.9 Chronic obstructive pulmonary disease, unspecified; L85.3 Xerosis cutis; H54.40 Blindness, one eye, unspecified eye; S81.811D Laceration without foreign body, right lower leg, subsequent encounter; X99.1XXD Assault by knife, subsequent encounter; R74.0 Nonspecific elevation of levels of transaminase and lactic acid dehydrogenase [LDH]; Z86.69 Personal history of other diseases of the nervous system and sense organs
CPT/HCPCS: 36415; 80053; 84450; 85027; 86593; 93005; 93010

== ENCOUNTER 2019-11-12 16:21 | Inpatient (IN) | payer OTHER ==
[2019-11-12] MEDS ORDERED: MAG HYDROX/AL HYDROX/SIMETH 30 ML UNIT-DOSE CUP PO PRN (16:26)
[2019-11-12] MEDS ORDERED: MAGNESIUM HYDROX 2400MG/30ML ORAL SUSPENSION 30 ML CUP PO PRN (16:26)
[2019-11-12] MEDS ORDERED: MAGNESIUM CITRATE 300 ML BOTTLE PO PRN (16:26)
[2019-11-12] MEDS ORDERED: LOPERAMIDE HCL 2 MG CAPSULE PO PRN (16:26)
[2019-11-12] MEDS ORDERED: guaiFENesin 200 MG/10 ML 10 ML UNIT-DOSE CUPS PO PRN (16:26)
[2019-11-12] MEDS ORDERED: MENTHOL/PHENOL 1 EACH UD MM PRN (16:26)
--- NOTE | 2019-11-12 16:28 | HP ---
[facility] Re[facility] Assess/Revision - Admission History Admitted to Rehab from: [facility] Date of Admission to Rehab: 11/12/2019 - Findings Detox History & Physical reviewed: Yes Concur with findings: Yes Inpatient Rehab Admission - Rehab Decision to Admit Inpatient rehab admission?: Yes - Initial Determination Are CD services needed?: Yes Free of communicable disease: Yes Not in need of hospitalization: Yes - Rehab Admission Criteria Previous failed treatment: No Poor recovery environment: No Comorbidities: No Lacks judgement: Yes Patient is meeting Inpatient Rehab admission criteria:: Yes
[2019-11-12] MEDS: THIAMINE HCL 100 MG TABLET (FP) PO SCH (21:25)
[2019-11-12] MEDS: MELATONIN 5 MG TABLETS PO PRN (21:25)
[2019-11-13] MEDS: PRENATAL VITAMINS W/ FOLIC ACID TABLET (FP) PO SCH (10:05)
[2019-11-13] MEDS: ACETAMINOPHEN 325 MG TABLET (FP) PO PRN (15:03)
[2019-11-13] MEDS: IBUPROFEN 400 MG TABLET (FP) PO PRN (18:26)
[2019-11-13] MEDS: MELATONIN 5 MG TABLETS PO PRN (21:11)
[2019-11-13] MEDS: THIAMINE HCL 100 MG TABLET (FP) PO SCH (21:11)
[2019-11-14] MEDS: IBUPROFEN 400 MG TABLET (FP) PO PRN ×2 (01:26→06:47)
[2019-11-14] MEDS: PRENATAL VITAMINS W/ FOLIC ACID TABLET (FP) PO SCH (10:29)
[2019-11-14] MEDS ORDERED: BENZOCAINE 20 % GEL TUBE MM PRN (15:16)
--- NOTE | 2019-11-14 15:20 | PN ---
[facility] Progress Note Note: Patient c/o toothache. Has poor dentition and missing teeth. No redness or swelling of gums. Will order anbesol prn. Monitor clinically.
[2019-11-14] MEDS: THIAMINE HCL 100 MG TABLET (FP) PO SCH (21:16)
[2019-11-14] MEDS: MELATONIN 5 MG TABLETS PO PRN (21:16)
[2019-11-15] MEDS: PRENATAL VITAMINS W/ FOLIC ACID TABLET (FP) PO SCH (10:24)
[2019-11-15] MEDS: NICOTINE 21 MG/24 HOURS TOPICAL PATCH TD SCH (14:13)
[2019-11-15] MEDS: NICOTINE POLACRILEX 4 MG GUM BUC PRN ×2 (14:13→21:15)
[2019-11-15] MEDS: MELATONIN 5 MG TABLETS PO PRN (21:15)
[2019-11-15] MEDS: THIAMINE HCL 100 MG TABLET (FP) PO SCH (21:15)
[2019-11-16] MEDS: NICOTINE POLACRILEX 4 MG GUM BUC PRN (06:27)
[2019-11-16] MEDS: PRENATAL VITAMINS W/ FOLIC ACID TABLET (FP) PO SCH (10:17)
[2019-11-16] MEDS: NICOTINE 21 MG/24 HOURS TOPICAL PATCH TD SCH (10:18)
[2019-11-16] MEDS: BACITRACIN 15 GM TUBE TOPICAL OINTMENT TP SCH (12:00)
[2019-11-16] MEDS: MELATONIN 5 MG TABLETS PO PRN (21:13)
[2019-11-16] MEDS: THIAMINE HCL 100 MG TABLET (FP) PO SCH (21:13)
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
[2019-11-17] MEDS: NICOTINE 21 MG/24 HOURS TOPICAL PATCH TD SCH (10:47)
[2019-11-17] MEDS: PRENATAL VITAMINS W/ FOLIC ACID TABLET (FP) PO SCH (10:47)
[2019-11-17] MEDS: BACITRACIN 15 GM TUBE TOPICAL OINTMENT TP SCH (10:47)
[2019-11-17] MEDS: MELATONIN 5 MG TABLETS PO PRN (21:12)
[2019-11-17] MEDS: THIAMINE HCL 100 MG TABLET (FP) PO SCH (21:12)
[2019-11-18] MEDS: PRENATAL VITAMINS W/ FOLIC ACID TABLET (FP) PO SCH (10:12)
[2019-11-18] MEDS: BACITRACIN 15 GM TUBE TOPICAL OINTMENT TP SCH (10:13)
[2019-11-18] MEDS: NICOTINE 21 MG/24 HOURS TOPICAL PATCH TD SCH (10:13)
[2019-11-18] MEDS: MELATONIN 5 MG TABLETS PO PRN (21:39)
[2019-11-18] MEDS: THIAMINE HCL 100 MG TABLET (FP) PO SCH (21:39)
[2019-11-19] MEDS: BACITRACIN 15 GM TUBE TOPICAL OINTMENT TP SCH (09:58)
[2019-11-19] MEDS: PRENATAL VITAMINS W/ FOLIC ACID TABLET (FP) PO SCH (09:58)
[2019-11-19] MEDS: NICOTINE 21 MG/24 HOURS TOPICAL PATCH TD SCH (09:59)
[2019-11-19] MEDS: MELATONIN 5 MG TABLETS PO PRN (21:16)
[2019-11-19] MEDS: THIAMINE HCL 100 MG TABLET (FP) PO SCH (21:16)
[2019-11-20] MEDS: PRENATAL VITAMINS W/ FOLIC ACID TABLET (FP) PO SCH (09:51)
[2019-11-20] MEDS: NICOTINE 21 MG/24 HOURS TOPICAL PATCH TD SCH (09:51)
[2019-11-20] MEDS: BACITRACIN 15 GM TUBE TOPICAL OINTMENT TP SCH (09:52)
[2019-11-20] MEDS: MELATONIN 5 MG TABLETS PO PRN (21:07)
[2019-11-20] MEDS: THIAMINE HCL 100 MG TABLET (FP) PO SCH (21:07)
[2019-11-21] MEDS: PRENATAL VITAMINS W/ FOLIC ACID TABLET (FP) PO SCH (10:02)
[2019-11-21] MEDS: BACITRACIN 15 GM TUBE TOPICAL OINTMENT TP SCH (11:08)
[2019-11-21] MEDS: NICOTINE 21 MG/24 HOURS TOPICAL PATCH TD SCH (11:08)
[2019-11-21] MEDS: THIAMINE HCL 100 MG TABLET (FP) PO SCH (21:05)
[2019-11-21] MEDS: MELATONIN 5 MG TABLETS PO PRN (21:05)
[2019-11-22] MEDS: PRENATAL VITAMINS W/ FOLIC ACID TABLET (FP) PO SCH (09:54)
[2019-11-22] MEDS: BACITRACIN 15 GM TUBE TOPICAL OINTMENT TP SCH (09:55)
[2019-11-22] MEDS: NICOTINE 21 MG/24 HOURS TOPICAL PATCH TD SCH (09:56)
[2019-11-22] MEDS: THIAMINE HCL 100 MG TABLET (FP) PO SCH (22:00)
[2019-11-23] MEDS: BACITRACIN 15 GM TUBE TOPICAL OINTMENT TP SCH (10:07)
[2019-11-23] MEDS: NICOTINE 21 MG/24 HOURS TOPICAL PATCH TD SCH (10:07)
[2019-11-23] MEDS: PRENATAL VITAMINS W/ FOLIC ACID TABLET (FP) PO SCH (10:07)
[2019-11-23] MEDS: THIAMINE HCL 100 MG TABLET (FP) PO SCH (21:11)
[2019-11-23] MEDS: MELATONIN 5 MG TABLETS PO PRN (21:12)
[2019-11-24] MEDS: NICOTINE 21 MG/24 HOURS TOPICAL PATCH TD SCH (09:17)
[2019-11-24] MEDS: BACITRACIN 15 GM TUBE TOPICAL OINTMENT TP SCH (09:17)
[2019-11-24] MEDS: PRENATAL VITAMINS W/ FOLIC ACID TABLET (FP) PO SCH (09:17)
[2019-11-24] MEDS: THIAMINE HCL 100 MG TABLET (FP) PO SCH (21:27)
[2019-11-24] MEDS: MELATONIN 5 MG TABLETS PO PRN (21:27)
[2019-11-25] MEDS: NICOTINE 21 MG/24 HOURS TOPICAL PATCH TD SCH (09:36)
[2019-11-25] MEDS: PRENATAL VITAMINS W/ FOLIC ACID TABLET (FP) PO SCH (09:36)
[2019-11-25] MEDS: BACITRACIN 15 GM TUBE TOPICAL OINTMENT TP SCH (09:36)
[2019-11-25] MEDS: MELATONIN 5 MG TABLETS PO PRN (21:07)
[2019-11-25] MEDS: THIAMINE HCL 100 MG TABLET (FP) PO SCH (21:07)
[2019-11-26] MEDS: PRENATAL VITAMINS W/ FOLIC ACID TABLET (FP) PO SCH (10:08)
[2019-11-26] MEDS: BACITRACIN 15 GM TUBE TOPICAL OINTMENT TP SCH (10:09)
[2019-11-26] MEDS: NICOTINE 21 MG/24 HOURS TOPICAL PATCH TD SCH (10:09)
[2019-11-26] MEDS: THIAMINE HCL 100 MG TABLET (FP) PO SCH (21:13)
[2019-11-26] MEDS: MELATONIN 5 MG TABLETS PO PRN (21:13)
[2019-11-27] MEDS: PRENATAL VITAMINS W/ FOLIC ACID TABLET (FP) PO SCH (09:38)
[2019-11-27] MEDS: NICOTINE 21 MG/24 HOURS TOPICAL PATCH TD SCH (09:39)
[2019-11-27] MEDS: BACITRACIN 15 GM TUBE TOPICAL OINTMENT TP SCH (09:39)
[2019-11-27] MEDS: MELATONIN 5 MG TABLETS PO PRN (21:03)
[2019-11-27] MEDS: THIAMINE HCL 100 MG TABLET (FP) PO SCH (21:03)
[2019-11-28] MEDS: BACITRACIN 15 GM TUBE TOPICAL OINTMENT TP SCH (09:29)
[2019-11-28] MEDS: PRENATAL VITAMINS W/ FOLIC ACID TABLET (FP) PO SCH (09:29)
[2019-11-28] MEDS: NICOTINE 21 MG/24 HOURS TOPICAL PATCH TD SCH (09:29)
[2019-11-28] MEDS: THIAMINE HCL 100 MG TABLET (FP) PO SCH (21:14)
[2019-11-28] MEDS: MELATONIN 5 MG TABLETS PO PRN (21:14)
[2019-11-29] MEDS: BACITRACIN 15 GM TUBE TOPICAL OINTMENT TP SCH (10:09)
[2019-11-29] MEDS: NICOTINE 21 MG/24 HOURS TOPICAL PATCH TD SCH (10:10)
[2019-11-29] MEDS: PRENATAL VITAMINS W/ FOLIC ACID TABLET (FP) PO SCH (10:10)
[2019-11-29] MEDS: THIAMINE HCL 100 MG TABLET (FP) PO SCH (22:21)
[2019-11-30] MEDS: NICOTINE 21 MG/24 HOURS TOPICAL PATCH TD SCH (10:13)
[2019-11-30] MEDS: BACITRACIN 15 GM TUBE TOPICAL OINTMENT TP SCH (10:13)
[2019-11-30] MEDS: PRENATAL VITAMINS W/ FOLIC ACID TABLET (FP) PO SCH (10:14)
[2019-11-30] MEDS: THIAMINE HCL 100 MG TABLET (FP) PO SCH (22:03)
[2019-12-01] MEDS: PRENATAL VITAMINS W/ FOLIC ACID TABLET (FP) PO SCH (09:59)
[2019-12-01] MEDS: NICOTINE 21 MG/24 HOURS TOPICAL PATCH TD SCH (09:59)
[2019-12-01] MEDS: BACITRACIN 15 GM TUBE TOPICAL OINTMENT TP SCH (09:59)
[2019-12-01] MEDS: THIAMINE HCL 100 MG TABLET (FP) PO SCH (21:15)
[2019-12-01] MEDS: MELATONIN 5 MG TABLETS PO PRN (21:15)
[2019-12-02] MEDS: P-EPHED 60MG/TRIPROLIDI 2.5MG TABLET PO PRN (06:33)
[2019-12-02] MEDS: PRENATAL VITAMINS W/ FOLIC ACID TABLET (FP) PO SCH (10:07)
[2019-12-02] MEDS: NICOTINE 21 MG/24 HOURS TOPICAL PATCH TD SCH (10:07)
[2019-12-02] MEDS: BACITRACIN 15 GM TUBE TOPICAL OINTMENT TP SCH (10:07)
[2019-12-02] MEDS: THIAMINE HCL 100 MG TABLET (FP) PO SCH (22:03)
[2019-12-03] MEDS: PRENATAL VITAMINS W/ FOLIC ACID TABLET (FP) PO SCH (09:51)
[2019-12-03] MEDS: ACETAMINOPHEN 325 MG TABLET (FP) PO PRN (09:52)
[2019-12-03] MEDS: P-EPHED 60MG/TRIPROLIDI 2.5MG TABLET PO PRN (09:53)
[2019-12-03] MEDS: BACITRACIN 15 GM TUBE TOPICAL OINTMENT TP SCH (10:19)
[2019-12-03] MEDS: NICOTINE 21 MG/24 HOURS TOPICAL PATCH TD SCH (10:19)
[2019-12-03] MEDS: THIAMINE HCL 100 MG TABLET (FP) PO SCH (22:28)
[2019-12-04] MEDS: PRENATAL VITAMINS W/ FOLIC ACID TABLET (FP) PO SCH (09:34)
[2019-12-04] MEDS: ACETAMINOPHEN 325 MG TABLET (FP) PO PRN (09:34)
[2019-12-04] MEDS: P-EPHED 60MG/TRIPROLIDI 2.5MG TABLET PO PRN (09:35)
[2019-12-04] MEDS: NICOTINE 21 MG/24 HOURS TOPICAL PATCH TD SCH (10:19)
[2019-12-04] MEDS: BACITRACIN 15 GM TUBE TOPICAL OINTMENT TP SCH (10:19)
[2019-12-04] MEDS: MELATONIN 5 MG TABLETS PO PRN (21:28)
[2019-12-04] MEDS: THIAMINE HCL 100 MG TABLET (FP) PO SCH (21:28)
[2019-12-05] MEDS: PRENATAL VITAMINS W/ FOLIC ACID TABLET (FP) PO SCH (10:09)
[2019-12-05] MEDS: NICOTINE 21 MG/24 HOURS TOPICAL PATCH TD SCH (10:09)
[2019-12-05] MEDS: BACITRACIN 15 GM TUBE TOPICAL OINTMENT TP SCH (10:09)
[2019-12-05] MEDS: SODIUM CHLORIDE NASAL SPRAY 44 ML BOTTLE NS SCH ×2 (14:18→21:54)
[2019-12-05] MEDS: THIAMINE HCL 100 MG TABLET (FP) PO SCH (21:54)
[2019-12-06] MEDS: SODIUM CHLORIDE NASAL SPRAY 44 ML BOTTLE NS SCH ×3 (06:50→21:12)
[2019-12-06] MEDS: NICOTINE 21 MG/24 HOURS TOPICAL PATCH TD SCH (10:15)
[2019-12-06] MEDS: BACITRACIN 15 GM TUBE TOPICAL OINTMENT TP SCH (10:15)
[2019-12-06] MEDS: PRENATAL VITAMINS W/ FOLIC ACID TABLET (FP) PO SCH (10:15)
[2019-12-06] MEDS: MELATONIN 5 MG TABLETS PO PRN (21:12)
[2019-12-06] MEDS: THIAMINE HCL 100 MG TABLET (FP) PO SCH (21:12)
[2019-12-07] MEDS: SODIUM CHLORIDE NASAL SPRAY 44 ML BOTTLE NS SCH ×3 (06:55→21:51)
[2019-12-07] MEDS: NICOTINE 21 MG/24 HOURS TOPICAL PATCH TD SCH (09:27)
[2019-12-07] MEDS: BACITRACIN 15 GM TUBE TOPICAL OINTMENT TP SCH (09:27)
[2019-12-07] MEDS: PRENATAL VITAMINS W/ FOLIC ACID TABLET (FP) PO SCH (09:27)
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
[2019-12-07] MEDS: THIAMINE HCL 100 MG TABLET (FP) PO SCH (21:51)
[2019-12-08] MEDS: SODIUM CHLORIDE NASAL SPRAY 44 ML BOTTLE NS SCH (07:10)
[2019-12-08 07:12] VITALS: BP 115/89; PULSE 81; TEMP 98.5
[2019-12-08] MEDS: PRENATAL VITAMINS W/ FOLIC ACID TABLET (FP) PO SCH (11:18)
[2019-12-08] MEDS: BACITRACIN 15 GM TUBE TOPICAL OINTMENT TP SCH (11:18)
[2019-12-08] MEDS: NICOTINE 21 MG/24 HOURS TOPICAL PATCH TD SCH (11:18)
[2019-12-08] MEDS: ACETAMINOPHEN 325 MG TABLET (FP) PO PRN (11:20)
== END 2019-12-08 12:30 | disposition home or self-care (01) | DRG 772 ==
LOC: YASAS 16:21 → Y5N 16:22
PROVIDERS: ADMIT Allergy & Immunology; ATTEND Allergy & Immunology
PROC: HZ42ZZZ Group Counseling for Substance Abuse Treatment, Cognitive-Behavioral (ICD-10-PCS; principal; 2019-11-12)
DX: F10.20 Alcohol dependence, uncomplicated (principal); F12.20 Cannabis dependence, uncomplicated; F17.210 Nicotine dependence, cigarettes, uncomplicated; F32.9 Major depressive disorder, single episode, unspecified; F79 Unspecified intellectual disabilities; J44.9 Chronic obstructive pulmonary disease, unspecified; J45.998 Other asthma; H54.61 Unqualified visual loss, right eye, normal vision left eye; H50.10 Unspecified exotropia; R56.9 Unspecified convulsions; R63.6 Underweight; Z68.1 Body mass index [BMI] 19.9 or less, adult; Z87.81 Personal history of (healed) traumatic fracture

== ENCOUNTER 2020-04-20 15:51 | Inpatient (IN) | payer OTHER ==
[2020-04-20 17:58] VITALS: BMI 19.5
--- NOTE | 2020-04-20 19:16 | HP ---
"CIWA Score Nausea/Vomitin-No Nausea/No Vomiting Muscle Tremors: 4-Moderate,w/Arms Extend Anxiety: 1-Mildly Anxious Agitation: 3 Paroxysmal Sweats: 3 (Increased facial moisture) Orientation: 2-Disoriented Date<2 days Tacttile Disturbances: 0-None Auditory Disturbances: 0-None Visual Disturbances: 0-None Headache: 0-None Present CIWA-Ar Total Score: 13 - Admission Criteria OASAS Guidelines: Admission for Medically Managed Detox: Requires at least one of the followin. CIWA greater than 12 2. Seizures within the past 24 hours 3. Delirium tremens within the past 24 hours 4. Hallucinations within the past 24 hours 5. Acute intervention needed for co occurring medical disorder 6. Acute intervention needed for co occurring psychiatric disorder 7. Severe withdrawal that cannot be handled at a lower level of care (continued vomiting, continued diarrhea, abnormal vital signs) requiring intravenous medication and/or fluids 8. Patient presents the following: CIWA greater than 12 (Patient was treated for alcohol intoxication in ED prior to referral for this admission) Admission Criteria Met: Admission criteria met Admitting History and Physical - Past Medical History HEATING WORKER: Yes: Seizure - Smoking History Smoking history: Never smoked Have you smoked in the past 12 months: No Aproximately how many cigarettes per day: 20 - Alcohol/Substance Use Hx Alcohol Use: No History of Substance Use: reports: None - Social History ADL: Support Services (homeless,living on the street,unemployed) History of Recent Travel: No Admission ROS [facility] Chief Complaint: Here for alcohol detox. I want to stop drinking again. Allergies/Adverse Reactions: Allergies Allergy/AdvReac Type Severity Reaction Status Date / Time No Known Allergies Allergy Verified 12/25/19 16:41 History of Present Illness: 54 yo presents w/ alcohol withdrawal symptoms. States sober since last discharge and relapsed about 2-3 weeks ago. Was seen in [facility] ED on 04/20 for alcohol intoxication and fall injury of back. Lumbar spin x-rays dome at [facility]. Discharge papers reviewed. Patient sent to [facility] for Detox. Hx: Seizures and blackouts. Denies overdose. Alcohol use began at age 18. States drinks 4-25 oz beers daily. Nicotine use began at age 19. Smokes 1 PPD. PMHx: Asthma (last exacerbation 11/2019); Nasal congestion x 1 day 11/07/19 EKG = NSR MHHx: Anxious. Denies thoughts of harming self or others. SHx: Homeless. Unemployed. Denies legal issues. Search Terms: Dontrell Hernandez, 1965 Search Date: 04/20/2020 19:30:39 PM The Drug Utilization Report below displays all of the controlled substance prescriptions, if any, that your patient has filled in the last twelve months. The information displayed on this report is compiled from pharmacy submissions to the Department, and accurately reflects the information as submitted by the pharmacies. This report was requested by: Lynsey Haynes | Reference #: [id number] There are no results for the search terms that you entered. Exam Limitations: No Limitations - Ebola screening Have you traveled outside of the country in the last 21 days: No (Denies COVID exposure) Have you had contact with anyone from an Ebola affected area: No Have you been sick,other than usual withdrawal symptoms: No Do you have a fever: No - Review of Systems Constitutional: Chills, Weight Stable (Underweight) EENT: reports: Nose Congestion Respiratory: reports: No Symptoms reported Cardiac: reports: No Symptoms Reported GI: reports: Indigestion : reports: No Symptoms Reported Musculoskeletal: reports: Back Pain (Chronic back pain - upeer and lower spine) Integumentary: reports: Lesions ((L) leg) Neuro: reports: Tremors Endocrine: reports: No Symptoms Reported Hematology: reports: No Symptoms Reported Psychiatric: reports: Judgement Intact, Agitated, Anxious Patient History - Patient Medical History Hx Anemia: No Hx Asthma: Yes Hx Chronic Obstructive Pulmonary Disease (COPD): Yes Hx Cancer: No Hx Cardiac Disorders: No Hx Congestive Heart Failure: No Hx Hypertension: No Hx Hypercholesterolemia: No Hx Pacemaker: No HX Cerebrovascular Accident: No Hx Seizures: Yes (Alcohol Related last 2018) Hx Dementia: No Hx Diabetes: No Hx Gastrointestinal Disorders: No Hx Liver Disease: No Hx Genitourinary Disorders: No Hx Sexually Transmitted Disorders: No Hx Renal Disease (ESRD): No Hx Thyroid Disease: No Hx Human Immunodeficiency Virus (HIV): No (Negative 2017 ) Hx Hepatitis C: No Hx Depression: Yes Hx Suicide Attempt: No Hx Bipolar Disorder: No Hx Schizophrenia: No - Patient Surgical History Past Surgical History: Yes Hx Neurologic Surgery: No Hx Cataract Extraction: No Hx Cardiac Surgery: No Hx Lung Surgery: No Hx Breast Surgery: No Hx Breast Biopsy: No Hx Abdominal Surgery: No Hx Appendectomy: No Hx Cholecystectomy: No Hx Genitourinary Surgery: No Hx Section: No Hx Orthopedic Surgery: Yes (left ankle with ORIF due to fracture) Anesthesia Reaction: No - PPD History Previous Implant?: Yes Documented Results: Negative w/proof Implanted On Prior [facility] Admission?: Yes Date: 11/10/19 Results: 0 MM PPD to be Administered?: No - Smoking Cessation Smoking history: Current every day smoker Have you smoked in the past 12 months: Yes Aproximately how many cigarettes per day: 20 Hx Chewing Tobacco Use: No Initiated information on smoking cessation: Yes 'Breaking Loose' booklet given: 04/20/20 - Substance & Tx. History Hx Alcohol Use: Yes Hx Substance Use: Yes Substance Use Type: Alcohol Hx Substance Use Treatment: Yes (detox, rehab) Admission Physical Exam BHS - Vital Signs Vital Signs: Vital Signs - 24 hr 04/20/20 17:46 Temperature 98.3 F Pulse Rate 81 Respiratory 18 Rate Blood Pressure 135/90 - Physical General Appearance: Yes: Mild Distress, Thin, Tremorous, Sweating (Increased facial moisture), Anxious HEENTM: Yes: Hearing grossly Normal, Normocephalic, DISHA (Pupils = 4 mm), Pharynx Normal, Nasal Congestion (w/ thickened whitish discharge and tearing) Respiratory: Yes: Lungs Clear (Pulse Ox = 99%), Normal Breath Sounds, No Res piratory Distress Neck: Yes: No masses,lesions,Nodules, Supple Breast: Yes: Breast Exam Deferred Cardiology: Yes: Regular Rhythm, S1, S2 (split), Murmur Abdominal: Yes: Non Tender, Flat, Soft, Increased Bowel Sounds Genitourinary: Yes: Within Normal Limits Back: Yes: Vertebral Tenderness, Other (Curvature of thorasic spine) Musculoskeletal: Yes: full range of Motion, Gait Steady Extremities: Yes: Normal Capillary Refill, Tremors (gross) Neurological: Yes: Alert, Motor Strength 5/5, Normal Response Integumentary: Yes: Normal Color, Warm, Moist (Increased facial moisture) - Diagnostic (1) Nasal discharge with watery eyes Current Visit: Yes Status: Acute (2) Alcohol dependence with uncomplicated withdrawal Current Visit: Yes Status: Acute (3) Nicotine dependence Current Visit: Yes Status: Chronic Qualifiers: Nicotine product type: cigarettes Substance use status: uncomplicated Qualified Code(s): F17.210 - Nicotine dependence, cigarettes, uncomplicated (4) History of seizure Current Visit: Yes Status: Chronic (5) Underweight Current Visit: Yes Status: Chronic (6) Kyphosis Current Visit: Yes Status: Chronic Qualifiers: Kyphosis type: unspecified Spinal region: unspecified Qualified Code(s): M40.209 - Unspecified kyphosis, site unspecified (7) Murmur, cardiac Current Visit: Yes Status: Acute (8) History of asthma Current Visit: Yes Status: Chronic Cleared for Admission S - Detox or Rehab [facility] Level of Care: Medically Managed Detox Regimen/Protocol: Librium Claeared for Rehab Admission: No Breathalyzer - Breathalyzer Breathalyzer: 0 Urine Drug Screen - Test Device Lot number: [id number] Expiration date: 06/11/21 - Control Is test valid?: Yes - Results Drug screen NEGATIVE: No Urine drug screen results: BZO-Benzodiazepines Inpatient Rehab Admission - Rehab Decision to Admit Inpatient rehab admission?: No"
[2020-04-20] MEDS ORDERED: chlordiazePOXIDE HCL 10 MG CAPSULE PO PRN (19:46)
[2020-04-20] MEDS ORDERED: MENTHOL/PHENOL 1 EACH UD MM PRN (19:46)
[2020-04-20] MEDS ORDERED: IBUPROFEN 400 MG TABLET (FP) PO PRN (19:46)
[2020-04-20] MEDS ORDERED: MAG HYDROX/AL HYDROX/SIMETH 30 ML UNIT-DOSE CUP PO PRN (19:46)
[2020-04-20] MEDS ORDERED: MAGNESIUM CITRATE 300 ML BOTTLE PO PRN (19:46)
[2020-04-20] MEDS ORDERED: BISMUTH SUBSALICYLATE 524 MG/30 ML UD PO PRN (19:46)
[2020-04-20] MEDS ORDERED: MAGNESIUM HYDROX 2400MG/30ML ORAL SUSPENSION 30 ML CUP PO PRN (19:46)
[2020-04-20] MEDS ORDERED: ACETAMINOPHEN 325 MG TABLET (FP) PO PRN (19:46)
[2020-04-20] MEDS ORDERED: METHOCARBAMOL 500 MG TABLET PO PRN (19:46)
[2020-04-20] MEDS ORDERED: ONDANSETRON *ODT* 4 MG TABLET SL ONE (19:46)
[2020-04-20] MEDS ORDERED: P-EPHED 60MG/TRIPROLIDI 2.5MG TABLET PO SCH (20:00)
[2020-04-20] MEDS: P-EPHED 60MG/TRIPROLIDI 2.5MG TABLET PO SCH (21:13)
[2020-04-20] MEDS: hydrOXYzine PAMOATE 25 MG CAPSULE (FP) PO SCH (21:13)
[2020-04-20] MEDS: THIAMINE HCL 100 MG TABLET (FP) PO SCH (21:13)
[2020-04-20] MEDS: chlordiazePOXIDE HCL 25 MG CAPSULE PO SCH (21:13)
[2020-04-20] MEDS: MELATONIN 5 MG TABLETS PO SCH (21:13)
[2020-04-21] MEDS: P-EPHED 60MG/TRIPROLIDI 2.5MG TABLET PO SCH ×3 (05:11→22:13)
[2020-04-21] MEDS: hydrOXYzine PAMOATE 25 MG CAPSULE (FP) PO SCH ×5 (05:11→22:13)
[2020-04-21] MEDS: chlordiazePOXIDE HCL 25 MG CAPSULE PO SCH ×3 (05:12→22:13)
[2020-04-21] MEDS: ACETAMINOPHEN 325 MG TABLET (FP) PO PRN (05:12)
[2020-04-21] MEDS: NICOTINE 21 MG/24 HOURS TOPICAL PATCH TD SCH (10:10)
[2020-04-21] MEDS: PRENATAL VITAMINS W/ FOLIC ACID TABLET (FP) PO SCH (10:10)
[2020-04-21] MEDS: NICOTINE POLACRILEX 2 MG GUM BUC PRN ×2 (10:10→17:29)
[2020-04-21 11:45] LABS: ALBUMIN 4.2 g/dl (3.4-5.0); BILIRUBIN,TOTAL 1.5 mg/dL (0.2-1); BLOOD UREA NITROGEN 11.5 mg/dL (7-18); CALCIUM 9.9 mg/dL (8.5-10.1); CREATININE 0.8 mg/dL (0.55-1.3); HEMATOCRIT 41.6 % (35.4-49); MCHC 33.6 g/dl (32.0-35.9); MEAN CELL VOLUME 104.2 fl (80-96); MEAN PLT VOLUME 10.3 fl (7.5-11.1); PLATELET COUNT 108 K/MM3 (134-434); POTASSIUM 4.1 mmol/L (3.5-5.1); RDW 17.1 % (11.9-15.9); TOT PROT 8.6 g/dl (6.4-8.2); WHITE BLOOD COUNT 3.3 K/mm3 (4.0-10.0)
--- NOTE | 2020-04-21 12:30 | PN ---
[facility] CIWA - CIWA Score Nausea/Vomitin-No Nausea/No Vomiting Muscle Tremors: 3 Anxiety: 3 Agitation: 3 Paroxysmal Sweats: 2 Orientation: 0-Oriented Tacttile Disturbances: 0-None Auditory Disturbances: 0-None Visual Disturbances: 1-Very Mild Sensitivity Headache: 0-None Present CIWA-Ar Total Score: 12 S Progress Note (SOAP) Subjective: Complaints of tremors, anxiety, back pain and light sensitivity Objective: 04/21/20 12:27 Vital Signs 04/21/20 04/21/20 05:07 08:31 Temperature 97.3 F L 97.3 F L Pulse Rate 92 H 101 H Respiratory 6 L 18 Rate Blood Pressure 125/80 134/94 O2 Sat by Pulse 98 Oximetry (%) Laboratory Last Values WBC 3.3 K/mm3 (4.0-10.0) L 04/21/20 07:55 RBC 4.00 M/mm3 (4.00-5.60) 04/21/20 07:55 Hgb 14.0 GM/dL (11.7-16.9) 04/21/20 07:55 Hct 41.6 % (35.4-49) 04/21/20 07:55 MCV 104.2 fl (80-96) H 04/21/20 07:55 MCH 35.0 pg (25.7-33.7) H 04/21/20 07:55 MCHC 33.6 g/dl (32.0-35.9) 04/21/20 07:55 RDW 17.1 % (11.9-15.9) H 04/21/20 07:55 Plt Count 108 K/MM3 (134-434) L 04/21/20 07:55 MPV 10.3 fl (7.5-11.1) 04/21/20 07:55 Sodium 134 mmol/L (136-145) L 04/21/20 07:55 Potassium 4.1 mmol/L (3.5-5.1) 04/21/20 07:55 Chloride 95 mmol/L (98-107) L 04/21/20 07:55 Carbon Dioxide 27 mmol/L (21-32) 04/21/20 07:55 Anion Gap 12 MMOL/L (8-16) 04/21/20 07:55 BUN 11.5 mg/dL (7-18) 04/21/20 07:55 Creatinine 0.8 mg/dL (0.55-1.3) 04/21/20 07:55 Est GFR (CKD-EPI)AfAm 117.38 04/21/20 07:55 Est GFR (CKD-EPI)NonAf 101.27 04/21/20 07:55 Random Glucose 84 mg/dL (74-106) 04/21/20 07:55 Calcium 9.9 mg/dL (8.5-10.1) 04/21/20 07:55 Total Bilirubin 1.5 mg/dL (0.2-1) H 04/21/20 07:55 AST 104 U/L (15-37) H 04/21/20 07:55 ALT 61 U/L (13-61) 04/21/20 07:55 Alkaline Phosphatase 204 U/L (45-117) H 04/21/20 07:55 Total Protein 8.6 g/dl (6.4-8.2) H 04/21/20 07:55 Albumin 4.2 g/dl (3.4-5.0) 04/21/20 07:55 Labs noted. Assessment: Alert and oriented x3, in no acute respiratory distress. Full ROM, ambulating in the unit. Withdrawal symptoms. Plan: Continue detox protocol.
[2020-04-21 21:27] LABS: EPI CELLS >36 /uL (0-25.1); HYALINE CASTS 6 /uL (0-3.1); URINE APPEARANCE CLEAR; URINE BACTERIA 39 /uL (0-1359); URINE BILIRUBIN NEGATIVE (NEGATIVE); URINE COLOR DK YELLOW; URINE GLUCOSE (UA) NEGATIVE (NEGATIVE); URINE KETONE TRACE (NEGATIVE); URINE LEUK ESTERASE 1+ (NEGATIVE); URINE NITRITE NEGATIVE (NEGATIVE); URINE PROTEIN 1+ (NEGATIVE); URINE RBC 10 /uL (0-23.9); URINE WBC 97 /uL (0-25.8)
[2020-04-21] MEDS: THIAMINE HCL 100 MG TABLET (FP) PO SCH (22:13)
[2020-04-21] MEDS: MELATONIN 5 MG TABLETS PO SCH (22:13)
[2020-04-22] MEDS: ACETAMINOPHEN 325 MG TABLET (FP) PO PRN (05:20)
[2020-04-22] MEDS: chlordiazePOXIDE 5 MG CAPSULE PO SCH ×3 (05:20→22:07)
[2020-04-22] MEDS: hydrOXYzine PAMOATE 25 MG CAPSULE (FP) PO SCH ×5 (05:20→22:10)
[2020-04-22] MEDS: P-EPHED 60MG/TRIPROLIDI 2.5MG TABLET PO SCH ×3 (05:22→22:07)
[2020-04-22] MEDS: NICOTINE POLACRILEX 2 MG GUM BUC PRN ×2 (05:23→10:08)
[2020-04-22] MEDS: NICOTINE 21 MG/24 HOURS TOPICAL PATCH TD SCH (10:07)
[2020-04-22] MEDS: PRENATAL VITAMINS W/ FOLIC ACID TABLET (FP) PO SCH (10:07)
--- NOTE | 2020-04-22 13:03 | PN ---
[facility] CIWA - CIWA Score Nausea/Vomitin-No Nausea/No Vomiting Muscle Tremors: 2 Anxiety: 2 Agitation: 2 Paroxysmal Sweats: 2 Orientation: 0-Oriented Tacttile Disturbances: 0-None Auditory Disturbances: 0-None Visual Disturbances: 0-None Headache: 0-None Present CIWA-Ar Total Score: 8 S Progress Note (SOAP) Subjective: Sweating, chills, diarrhea x 1 this morning, back pain (request lidocaine patch) Objective: 04/22/20 12:54 Last Vital Signs Temp Pulse Resp BP Pulse Ox 97.1 F L 98 H 17 112/82 96 04/22/20 08:30 04/22/20 08:30 04/22/20 08:30 04/22/20 08:30 04/22/20 05:14 Laboratory Tests 04/21/20 04/21/20 04/21/20 07:55 07:55 07:55 WBC 3.3 L RBC 4.00 Hgb 14.0 Hct 41.6 MCV 104.2 H MCH 35.0 H MCHC 33.6 RDW 17.1 H Plt Count 108 L MPV 10.3 Sodium 134 L Potassium 4.1 Chloride 95 L Carbon Dioxide 27 Anion Gap 12 BUN 11.5 Creatinine 0.8 Est GFR (CKD-EPI)AfAm 117.38 Est GFR (CKD-EPI)NonAf 101.27 Random Glucose 84 Calcium 9.9 Total Bilirubin 1.5 H AST 104 H ALT 61 Alkaline Phosphatase 204 H Total Protein 8.6 H Albumin 4.2 Urine Color Urine Appearance Urine pH Ur Specific [place] Urine Protein Urine Glucose (UA) Urine Ketones Urine Blood Urine Nitrite Urine Bilirubin Urine Urobilinogen Ur Leukocyte Esterase Urine WBC (Auto) Urine RBC (Auto) Urine Casts (Auto) U Epithel Cells (Auto) U Sm Round Cell (Auto) Urine Bacteria (Auto) Syphilis Serology Non-reactive 04/21/20 19:06 WBC RBC Hgb Hct MCV MCH MCHC RDW Plt Count MPV Sodium Potassium Chloride Carbon Dioxide Anion Gap BUN Creatinine Est GFR (CKD-EPI)AfAm Est GFR (CKD-EPI)NonAf Random Glucose Calcium Total Bilirubin AST ALT Alkaline Phosphatase Total Protein Albumin Urine Color Dk yellow Urine Appearance Clear Urine pH 6.0 Ur Specific [place] 1.024 Urine Protein 1+ H Urine Glucose (UA) Negative Urine Ketones Trace H Urine Blood Negative Urine Nitrite Negative Urine Bilirubin Negative Urine Urobilinogen 2.0 Ur Leukocyte Esterase 1+ H Urine WBC (Auto) 97 Urine RBC (Auto) 10 Urine Casts (Auto) 6 U Epithel Cells (Auto) >36 U Sm Round Cell (Auto) None Urine Bacteria (Auto) 39 Syphilis Serology Labs reviewed: elevated LFTs, abnormal UA noted Assessment: 04/22/20 13:06 Withdrawal sxs Patient c/o mid back pain (wants pain patch) Noted with elevated LFTs and abnormal UA Plan: Continue detox Encouraged PO water intake Back pain: start lidocaine patch 5% daily Elevated LFTs: repeat hepatic function panel Abnormal UA: repeat UA & send urine cx (stat) Follow up on COVID 19 test result (pending)
[2020-04-22] MEDS: LIDOCAINE 5% TOPICAL PATCH TP SCH (13:48)
[2020-04-22 15:29] LABS: EPI CELLS 21 /uL (0-25.1); HYALINE CASTS 2 /uL (0-3.1); URINE APPEARANCE CLEAR; URINE BACTERIA 25 /uL (0-1359); URINE BILIRUBIN 1+ (NEGATIVE); URINE COLOR DK YELLOW; URINE GLUCOSE (UA) NEGATIVE (NEGATIVE); URINE KETONE NEGATIVE (NEGATIVE); URINE LEUK ESTERASE TRACE (NEGATIVE); URINE NITRITE NEGATIVE (NEGATIVE); URINE PROTEIN TRACE (NEGATIVE); URINE RBC 23 /uL (0-23.9); URINE WBC 34 /uL (0-25.8)
[2020-04-22] MEDS: THIAMINE HCL 100 MG TABLET (FP) PO SCH (22:07)
[2020-04-22] MEDS: MELATONIN 5 MG TABLETS PO SCH (22:08)
[2020-04-22] MEDS: LIDOCAINE PATCH REMOVAL MC SCH (22:11)
[2020-04-23] MEDS ORDERED: chlordiazePOXIDE HCL 10 MG CAPSULE PO PRN
[2020-04-23] MEDS: chlordiazePOXIDE HCL 10 MG CAPSULE PO SCH ×3 (05:15→22:13)
[2020-04-23] MEDS: P-EPHED 60MG/TRIPROLIDI 2.5MG TABLET PO SCH ×3 (05:15→22:13)
[2020-04-23] MEDS: ACETAMINOPHEN 325 MG TABLET (FP) PO PRN (05:15)
[2020-04-23] MEDS: hydrOXYzine PAMOATE 25 MG CAPSULE (FP) PO SCH (05:15)
[2020-04-23] MEDS: NICOTINE POLACRILEX 2 MG GUM BUC PRN (05:18)
[2020-04-23] MEDS ORDERED: hydrOXYzine PAMOATE 25 MG CAPSULE (FP) PO PRN (09:08)
--- NOTE | 2020-04-23 09:32 | PN ---
S CIWA - CIWA Score Nausea/Vomitin-No Nausea/No Vomiting Muscle Tremors: 2 Anxiety: 1-Mildly Anxious Agitation: 1-Slight > Activity Paroxysmal Sweats: 1-Minimal Palms Moist Orientation: 0-Oriented Tacttile Disturbances: 0-None Auditory Disturbances: 0-None Visual Disturbances: 0-None Headache: 0-None Present CIWA-Ar Total Score: 5 BHS Progress Note (SOAP) Subjective: low back pain sweats restless Objective: 04/23/20 09:39 Vital Signs Temperature 97.3 F L 04/23/20 08:36 Pulse Rate 85 04/23/20 08:36 Respiratory Rate 18 04/23/20 08:36 Blood Pressure 95/68 04/23/20 08:36 O2 Sat by Pulse Oximetry (%) 96 04/23/20 05:30 Laboratory Tests 04/20/20 04/21/20 04/21/20 20:30 07:55 07:55 WBC 3.3 L RBC 4.00 Hgb 14.0 Hct 41.6 MCV 104.2 H MCH 35.0 H MCHC 33.6 RDW 17.1 H Plt Count 108 L MPV 10.3 Sodium Potassium Chloride Carbon Dioxide Anion Gap BUN Creatinine Est GFR (CKD-EPI)AfAm Est GFR (CKD-EPI)NonAf Random Glucose Calcium Total Bilirubin AST ALT Alkaline Phosphatase Total Protein Albumin Urine Color Urine Appearance Urine pH Ur Specific [place] Urine Protein Urine Glucose (UA) Urine Ketones Urine Blood Urine Nitrite Urine Bilirubin Urine Urobilinogen Ur Leukocyte Esterase Urine WBC (Auto) Urine RBC (Auto) Urine Casts (Auto) U Epithel Cells (Auto) U Sm Round Cell (Auto) Urine Bacteria (Auto) Syphilis Serology Non-reactive COVID-19 (ROXI) Not detected 04/21/20 04/21/20 04/22/20 07:55 19:06 13:33 WBC RBC Hgb Hct MCV MCH MCHC RDW Plt Count MPV Sodium 134 L Potassium 4.1 Chloride 95 L Carbon Dioxide 27 Anion Gap 12 BUN 11.5 Creatinine 0.8 Est GFR (CKD-EPI)AfAm 117.38 Est GFR (CKD-EPI)NonAf 101.27 Random Glucose 84 Calcium 9.9 Total Bilirubin 1.5 H AST 104 H ALT 61 Alkaline Phosphatase 204 H Total Protein 8.6 H Albumin 4.2 Urine Color Dk yellow Dk yellow Urine Appearance Clear Clear Urine pH 6.0 6.0 Ur Specific [place] 1.024 1.030 Urine Protein 1+ H Trace Urine Glucose (UA) Negative Negative Urine Ketones Trace H Negative Urine Blood Negative Negative Urine Nitrite Negative Negative Urine Bilirubin Negative 1+ H Urine Urobilinogen 2.0 1.0 Ur Leukocyte Esterase 1+ H Trace Urine WBC (Auto) 97 34 Urine RBC (Auto) 10 23 Urine Casts (Auto) 6 2 U Epithel Cells (Auto) >36 21 U Sm Round Cell (Auto) None Urine Bacteria (Auto) 39 25 Syphilis Serology COVID-19 (ROXI) aaox3 ambulating no acute distress UTI is noted; pt is having burning sensation when he urinates. pt will be ordered ABX Assessment: 04/23/20 09:47 withdrawals Plan: continue detox increase fluids bactrin ds 1 tab x 10days
[2020-04-23] MEDS ORDERED: SULFAMETHOXAZOLE/TRIMETHOPRIM 800MG/160MG D.S. TABLET PO SCH (10:00)
[2020-04-23] MEDS: NICOTINE 21 MG/24 HOURS TOPICAL PATCH TD SCH (10:09)
[2020-04-23] MEDS: PRENATAL VITAMINS W/ FOLIC ACID TABLET (FP) PO SCH (10:09)
[2020-04-23] MEDS: LIDOCAINE 5% TOPICAL PATCH TP SCH (10:09)
[2020-04-23 11:26] LABS: ALBUMIN 3.5 g/dl (3.4-5.0); BILIRUBIN,DIRECT 0.2 mg/dL (0.0-0.2); BILIRUBIN,TOTAL 0.8 mg/dL (0.2-1); TOT PROT 7.2 g/dl (6.4-8.2)
[2020-04-23] MEDS: SULFAMETHOXAZOLE/TRIMETHOPRIM 800MG/160MG D.S. TABLET PO SCH (22:13)
[2020-04-23] MEDS: LIDOCAINE PATCH REMOVAL MC SCH (22:15)
[2020-04-23] MEDS: MELATONIN 5 MG TABLETS PO SCH (22:15)
[2020-04-23] MEDS: THIAMINE HCL 100 MG TABLET (FP) PO SCH (22:15)
[2020-04-24] MEDS ORDERED: chlordiazePOXIDE HCL 10 MG CAPSULE PO ONE (05:00)
[2020-04-24] MEDS: P-EPHED 60MG/TRIPROLIDI 2.5MG TABLET PO SCH (05:16)
[2020-04-24] MEDS: ACETAMINOPHEN 325 MG TABLET (FP) PO PRN (05:18)
[2020-04-24 06:26] VITALS: TEMP 97.3
--- NOTE | 2020-04-24 09:23 | PN ---
[facility] CIWA - CIWA Score Nausea/Vomitin-No Nausea/No Vomiting Muscle Tremors: None Anxiety: 1-Mildly Anxious Agitation: 0-Normal Activity Paroxysmal Sweats: No Perspiration Orientation: 0-Oriented Tacttile Disturbances: 0-None Auditory Disturbances: 0-None Visual Disturbances: 0-None Headache: 0-None Present CIWA-Ar Total Score: 1 S Progress Note (SOAP) Subjective: alert,no complaint Objective: 04/24/20 09:22 Vital Signs Temperature 97.3 F L 04/24/20 05:10 Pulse Rate 89 04/24/20 05:10 Respiratory Rate 18 04/24/20 05:10 Blood Pressure 114/79 04/24/20 05:10 O2 Sat by Pulse Oximetry (%) 100 04/24/20 05:10 Assessment: 04/24/20 09:22 detox completed,no withdrawal symptom Plan: discharge today,follow up with after care program as arrangement
--- NOTE | 2020-04-24 09:32 | DS ---
[facility] Detox Discharge Summary Admission Date: 04/20/20 Discharge Date: 04/24/20 - History Present History: Alcohol Dependence Additional Comments: alert,oriented x 3 ambulation on the unit lung clear bilaterally on auscultation abdomen soft,no distension,no pain,no tenderness detox completed,no withdrawal symptom stable for discharge today follow up with after care program [facility] as arrangement total time of discharge is 35 minutes Pertinent Past History: congenital blindness of right eye - Physical Exam Results Vital Signs: Vital Signs Temperature 97.3 F L 04/24/20 05:10 Pulse Rate 89 04/24/20 05:10 Respiratory Rate 18 04/24/20 05:10 Blood Pressure 114/79 04/24/20 05:10 O2 Sat by Pulse Oximetry (%) 100 04/24/20 05:10 Pertinent Admission Physical Exam Findings: withdrawal signs and symptom Laboratory Last Values WBC 3.3 K/mm3 (4.0-10.0) L 04/21/20 07:55 RBC 4.00 M/mm3 (4.00-5.60) 04/21/20 07:55 Hgb 14.0 GM/dL (11.7-16.9) 04/21/20 07:55 Hct 41.6 % (35.4-49) 04/21/20 07:55 MCV 104.2 fl (80-96) H 04/21/20 07:55 MCH 35.0 pg (25.7-33.7) H 04/21/20 07:55 MCHC 33.6 g/dl (32.0-35.9) 04/21/20 07:55 RDW 17.1 % (11.9-15.9) H 04/21/20 07:55 Plt Count 108 K/MM3 (134-434) L 04/21/20 07:55 MPV 10.3 fl (7.5-11.1) 04/21/20 07:55 Sodium 134 mmol/L (136-145) L 04/21/20 07:55 Potassium 4.1 mmol/L (3.5-5.1) 04/21/20 07:55 Chloride 95 mmol/L (98-107) L 04/21/20 07:55 Carbon Dioxide 27 mmol/L (21-32) 04/21/20 07:55 Anion Gap 12 MMOL/L (8-16) 04/21/20 07:55 BUN 11.5 mg/dL (7-18) 04/21/20 07:55 Creatinine 0.8 mg/dL (0.55-1.3) 04/21/20 07:55 Est GFR (CKD-EPI)AfAm 117.38 04/21/20 07:55 Est GFR (CKD-EPI)NonAf 101.27 04/21/20 07:55 Random Glucose 84 mg/dL (74-106) 04/21/20 07:55 Calcium 9.9 mg/dL (8.5-10.1) 04/21/20 07:55 Total Bilirubin 0.8 mg/dL (0.2-1) 04/23/20 08:00 Direct Bilirubin 0.2 mg/dL (0.0-0.2) 04/23/20 08:00 AST 76 U/L (15-37) H 04/23/20 08:00 ALT 55 U/L (13-61) 04/23/20 08:00 Alkaline Phosphatase 163 U/L (45-117) H 04/23/20 08:00 Total Protein 7.2 g/dl (6.4-8.2) 04/23/20 08:00 Albumin 3.5 g/dl (3.4-5.0) 04/23/20 08:00 Urine Color Dk yellow 04/22/20 13:33 Urine Appearance Clear 04/22/20 13:33 Urine pH 6.0 (5.0-8.0) 04/22/20 13:33 Ur Specific [place] 1.030 (1.010-1.035) 04/22/20 13:33 Urine Protein Trace (NEGATIVE) 04/22/20 13:33 Urine Glucose (UA) Negative (NEGATIVE) 04/22/20 13:33 Urine Ketones Negative (NEGATIVE) 04/22/20 13:33 Urine Blood Negative (NEGATIVE) 04/22/20 13:33 Urine Nitrite Negative (NEGATIVE) 04/22/20 13:33 Urine Bilirubin 1+ (NEGATIVE) H 04/22/20 13:33 Urine Urobilinogen 1.0 mg/dL (0.2-1.0) 04/22/20 13:33 Ur Leukocyte Esterase Trace (NEGATIVE) 04/22/20 13:33 Urine WBC (Auto) 34 /uL (0-25.8) 04/22/20 13:33 Urine RBC (Auto) 23 /uL (0-23.9) 04/22/20 13:33 Urine Casts (Auto) 2 /uL (0-3.1) 04/22/20 13:33 U Epithel Cells (Auto) 21 /uL (0-25.1) 04/22/20 13:33 U Sm Round Cell (Auto) None 04/21/20 19:06 Urine Bacteria (Auto) 25 /uL (0-1359) 04/22/20 13:33 Syphilis Serology Non-reactive (NONREACTIVE) 04/21/20 07:55 COVID-19 (ROXI) Not detected (Not Detected) 04/20/20 20:30 Vital Signs Temperature 97.3 F L 04/24/20 05:10 Pulse Rate 89 04/24/20 05:10 Respiratory Rate 18 04/24/20 05:10 Blood Pressure 114/79 04/24/20 05:10 O2 Sat by Pulse Oximetry (%) 100 04/24/20 05:10 - Treatment Hospital Course: Detox Protocol Followed, Detoxed Safely, Responded well, Discharged Condition Good, Rehab Referral Accepted Patient has Accepted a Re[facility] Referral to: [facility] - Medication Discharge Medications: Ambulatory Orders NK [No Known Home Medication] 11/27/13 - Diagnosis (1) Alcohol dependence with uncomplicated withdrawal Current Visit: Yes Status: Acute (2) History of asthma Current Visit: Yes Status: Chronic (3) History of seizure Current Visit: Yes Status: Chronic (4) Blind right eye Current Visit: No Status: Chronic Qualifiers: Left eye visual impairment category: left - unspecified impairment Qualified Code(s): H54.40 - Blindness, one eye, unspecified eye (5) UTI (urinary tract infection) Current Visit: Yes Status: Acute - AMA Did Patient Leave Against Medical Advice: No
[2020-04-24 09:56] VITALS: BP 156/77; PULSE 96
[2020-04-24] MEDS: SULFAMETHOXAZOLE/TRIMETHOPRIM 800MG/160MG D.S. TABLET PO SCH (10:42)
[2020-04-24] MEDS: NICOTINE 21 MG/24 HOURS TOPICAL PATCH TD SCH (10:43)
[2020-04-24] MEDS: LIDOCAINE 5% TOPICAL PATCH TP SCH (10:43)
[2020-04-24] MEDS: PRENATAL VITAMINS W/ FOLIC ACID TABLET (FP) PO SCH (10:43)
== END 2020-04-24 11:43 | disposition other institution (70) | DRG 775 ==
LOC: YASAS 15:51 → Y6N 19:55
PROVIDERS: ADMIT Allergy & Immunology; ATTEND Allergy & Immunology
PROC: HZ2ZZZZ Detoxification Services for Substance Abuse Treatment (ICD-10-PCS; principal; 2020-04-20)
DX: F10.230 Alcohol dependence with withdrawal, uncomplicated (principal); F17.210 Nicotine dependence, cigarettes, uncomplicated; F32.9 Major depressive disorder, single episode, unspecified; N39.0 Urinary tract infection, site not specified; H54.413A Blindness right eye category 3, normal vision left eye; L98.8 Other specified disorders of the skin and subcutaneous tissue; J45.909 Unspecified asthma, uncomplicated; M40.209 Unspecified kyphosis, site unspecified; M54.89 Other dorsalgia; G89.29 Other chronic pain; R94.5 Abnormal results of liver function studies; R01.1 Cardiac murmur, unspecified; R63.6 Underweight; Z68.1 Body mass index [BMI] 19.9 or less, adult; Z56.0 Unemployment, unspecified; Z59.0 Homelessness
CPT/HCPCS: 36415; 80053; 80076; 81003; 85027; 86780; 87086; Q0162; U0003

== ENCOUNTER 2020-04-24 11:24 | Inpatient (IN) | payer OTHER ==
[2020-04-24 13:03] VITALS: TEMP 97.8
[2020-04-24] MEDS ORDERED: MAGNESIUM CITRATE 300 ML BOTTLE PO PRN (13:36)
[2020-04-24] MEDS ORDERED: NICOTINE POLACRILEX 2 MG GUM BUC PRN (13:36)
[2020-04-24] MEDS ORDERED: guaiFENesin 200 MG/10 ML 10 ML UNIT-DOSE CUPS PO PRN (13:36)
[2020-04-24] MEDS ORDERED: MENTHOL/PHENOL 1 EACH UD MM PRN (13:36)
[2020-04-24] MEDS ORDERED: P-EPHED 60MG/TRIPROLIDI 2.5MG TABLET PO PRN (13:36)
[2020-04-24] MEDS ORDERED: ACETAMINOPHEN 325 MG TABLET (FP) PO PRN (13:36)
[2020-04-24] MEDS ORDERED: MAGNESIUM HYDROX 2400MG/30ML ORAL SUSPENSION 30 ML CUP PO PRN (13:36)
[2020-04-24] MEDS ORDERED: LOPERAMIDE HCL 2 MG CAPSULE PO PRN (13:36)
[2020-04-24] MEDS ORDERED: MAG HYDROX/AL HYDROX/SIMETH 30 ML UNIT-DOSE CUP PO PRN (13:36)
[2020-04-24] MEDS ORDERED: IBUPROFEN 400 MG TABLET (FP) PO PRN (13:36)
--- NOTE | 2020-04-24 13:39 | HP ---
[facility] Rehab Assess/Revision - Admission History Admitted to Rehab from: [facility] Date of Admission to Rehab: 04/24/2020 - Vital signs Vital Signs: Vital Signs Period Temp Pulse Resp BP Sys/Gonzalez Pulse Ox Last 24 Hr 97.8 F 95 18 102/75 98 - Findings Detox History & Physical reviewed: Yes Concur with findings: Yes Comments/Additional Findings: for rehab as protocol Inpatient Rehab Admission - Rehab Decision to Admit Inpatient rehab admission?: Yes - Initial Determination Are CD services needed?: Yes Free of communicable disease: Yes Not in need of hospitalization: Yes - Rehab Admission Criteria Previous failed treatment: Yes Poor recovery environment: Yes Comorbidities: Yes Lacks judgement: No Patient is meeting Inpatient Rehab admission criteria:: Yes
--- NOTE | 2020-04-24 13:41 | PN ---
S Progress Note Note: urine for c/s showed no growth,will d/c bactrim ds,encourage oral fluid
[2020-04-24] MEDS ORDERED: IBUPROFEN 600 MG TABLET (FP) PO PRN (14:22)
[2020-04-24] MEDS: hydrOXYzine PAMOATE 25 MG CAPSULE (FP) PO SCH ×2 (15:16→17:39)
[2020-04-24] MEDS ORDERED: MASKS NR ONE (18:27)
--- NOTE | 2020-04-24 19:29 | DS ---
[facility] Rehab Discharge Summary - [facility] Rehab Discharge Summary Admission Date: 04/24/20 Discharge Date: 04/24/20 - History Present History: Alcohol dependence Additional Comments: Patient is leaving AMA. Patient reports that he does not want to continue rehab. Risks and consequences of leaving AMA explained. AAOx3, pacing hallway RRR, NEVIN Clear lungs Abd soft nontender No CCE Patient signed AMA form and left. Pertinent Past History: Alcohol dependence Cardiac Murmur Asthma Kyphosis Blindness Right eye - Discharge Physical Exam Vital Signs: Vital Signs Temperature 97.8 F 04/24/20 13:02 Pulse Rate 92 H 04/24/20 19:10 Respiratory Rate 18 04/24/20 19:10 Blood Pressure 135/90 04/24/20 19:10 O2 Sat by Pulse Oximetry (%) 98 04/24/20 13:03 - Discharge Instructions Diet, activity, other medical instructions: Diet: Activity: Other medical instructions: - Diagnosis (1) alcohol induced mood disorder Current Visit: Yes Status: Chronic (2) Alcohol dependence with uncomplicated withdrawal Current Visit: Yes Status: Chronic (3) Murmur, cardiac Current Visit: Yes Status: Chronic (4) Blind right eye Current Visit: No Status: Chronic Qualifiers: Left eye visual impairment category: left - unspecified impairment Qualified Code(s): H54.40 - Blindness, one eye, unspecified eye (5) COPD (chronic obstructive pulmonary disease) Current Visit: Yes Status: Chronic Qualifiers: COPD type: emphysema (6) Kyphosis Current Visit: Yes Status: Chronic Qualifiers: Kyphosis type: unspecified Spinal region: unspecified Qualified Code(s): M40.209 - Unspecified kyphosis, site unspecified (7) Nicotine dependence Current Visit: Yes Status: Chronic Qualifiers: Nicotine product type: cigarettes Substance use status: uncomplicated Qualified Code(s): F17.210 - Nicotine dependence, cigarettes, uncomplicated - Follow-up Referral Minutes to complete discharge: 30 - AMA Did Patient Leave Against Medical Advice: Yes Additional Comments: Patient explained Risks of leaving AMA including alcohol/drug relapse and worsening of health.
[2020-04-24 19:35] VITALS: BP 135/90; PULSE 92
[2020-04-24] MEDS ORDERED: THIAMINE HCL 100 MG TABLET (FP) PO SCH (22:00)
[2020-04-24] MEDS ORDERED: MELATONIN 5 MG TABLETS PO SCH (22:00)
[2020-04-25] MEDS ORDERED: PRENATAL VITAMINS W/ FOLIC ACID TABLET (FP) PO SCH (10:00)
[2020-04-25] MEDS ORDERED: NICOTINE 7 MG/24 HOURS TOPICAL PATCH TD SCH (10:00)
== END 2020-04-24 19:10 | disposition left against medical advice (07) | DRG 770 ==
LOC: YASAS 11:24 → Y3E 11:25
PROVIDERS: ADMIT Allergy & Immunology; ATTEND Allergy & Immunology
PROC: HZ42ZZZ Group Counseling for Substance Abuse Treatment, Cognitive-Behavioral (ICD-10-PCS; principal; 2020-04-24)
DX: F10.20 Alcohol dependence, uncomplicated (principal); F17.210 Nicotine dependence, cigarettes, uncomplicated; F10.24 Alcohol dependence with alcohol-induced mood disorder; F43.8 Other reactions to severe stress; H54.61 Unqualified visual loss, right eye, normal vision left eye; M40.209 Unspecified kyphosis, site unspecified; R01.1 Cardiac murmur, unspecified; Z87.09 Personal history of other diseases of the respiratory system